=== PATIENT | female | born 1945 | race Two or more races ===

== ENCOUNTER 2017-10-12 04:05 | Inpatient (IN) | payer MEDICAID, MEDICARE ==
[~2017-10-12] VITALS: Ht 165.1 cm; Wt 77.6 kg
--- NOTE | 2017-10-12 04:13 | NUR ---
BIB RA C/C SOB PROGRESSIVELY GETTING WORSE OVER WEEK. PTAA/OX3. 2-3 WORD SENTENCES. LIPS CYANOTIC. ALBUTEROL GIVEN HAMMER OPERATOR. COMPLAINING OF SUBSTERNAL CHEST PAIN. 20G LAC IV HAMMER OPERATOR WITH NO SIGNS OF INFILTRATION. RA STATES 87% O2 SAT ON SCENE. AWAITING MD ORDERS. EVAL.
[2017-10-12] MEDS ORDERED: methylPREDNISolone SOD SUCC 125 MG/2ML VIAL ONE (04:22)
[2017-10-12] MEDS ORDERED: ALBUTEROL FS 2.5 MG/3 ML VIAL.NEB ONE (04:24)
[2017-10-12] MEDS ORDERED: IPRATROPIUM NEB FS 0.5 MG/2.5 ML AMPUL.NEB ONE (04:24)
[2017-10-12] MEDS ORDERED: methylPREDNISolone SOD SUCC 125 MG/2ML VIAL IV ONE (04:30)
[2017-10-12] MEDS ORDERED: ALBUTEROL FS 2.5 MG/3 ML VIAL.NEB CONTNEB ONE (04:30)
[2017-10-12] MEDS ORDERED: IPRATROPIUM NEB FS 0.5 MG/2.5 ML AMPUL.NEB NEB ONE (04:30)
--- NOTE | 2017-10-12 04:34 | NUR ---
LAB AND RT AT BEDSIDE
[2017-10-12 04:37] LABS: ABG BASE EXCESS -2.9 mmol/L; ABG OXYGEN SATURATION 96.3 % (92.0-98.5); ABG PCO2 41.8 mmHg (35.0-45.0); ABG PH 7.349 (7.350-7.450); ABG PO2 98.5 mmHg (75.0-100.0); AaDO2 167.6 mmHg; COHb 0.4 % (0.5-1.5); MetHb 0.4 % (0.0-1.5); O2Hb 95.5 % (94.0-97.0); SITE, ABG Right Radial; VENT MODE, BG 6L N/C
--- NOTE | 2017-10-12 04:48 | NUR ---
X RAY AT BEDSIDE
--- NOTE | 2017-10-12 04:49 | NUR ---
mohit obregon cellphone [phone]
[2017-10-12 04:53] LABS: BASOPHILS % (AUTO) 0.2 % (0.0-2.0); EOSINOPHILS % (AUTO) 2.5 % (0.0-6.0); HEMATOCRIT 30 % (33-45); HEMOGLOBIN 9.8 g/dL (11.5-14.8); LYMPHOCYTES % (AUTO) 30.7 % (20.0-44.0); MEAN CORPUSCULAR HEMOGLOBIN 28 PG (26.0-33.0); MEAN CORPUSCULAR HGB CONC 33 g/dl (31.0-36.0); MEAN CORPUSCULAR VOLUME 86 fL (82-100); MONOCYTES # (AUTO) 0.5 /CMM (0.1-1.30); MONOCYTES % (AUTO) 7.6 % (2.0-12.0); NEUTROPHILS # (AUTO) 3.9 /CMM (1.8-8.9); PLATELET COUNT (AUTO) 207 /CMM (150-450); WHITE BLOOD COUNT (AUTO) 6.7 K/uL (4.3-11.0)
[2017-10-12 05:10] LABS: CALCIUM, SERUM 8.4 mg/dL (8.5-10.1); CARBON DIOXIDE 26 mmol/L (21-32); CHLORIDE 108 mmol/L (98-107); CREATININE 1.1 mg/dL (0.6-1.3); GLUCOSE 112 mg/dL (74-106); POTASSIUM 3.8 mmol/L (3.5-5.1); SODIUM SERUM 143 mmol/L (136-145); UREA NITROGEN, BLOOD 23 mg/dL (7-18)
[2017-10-12 05:16] LABS: TROPONIN I < 0.017 ng/mL (0.00-0.056)
[2017-10-12 05:23] LABS: ALANINE AMINOTRANSFERASE 14 U/L (12-78); ALBUMIN 3.4 g/dL (3.4-5.0); ALKALINE PHOSPHATASE 75 U/L (46-116); ASPARTATE AMINOTRANSFERASE 14 U/L (15-37); B-TYPE NATRIURETIC PEPTIDE 4077 PG/ML (0-125); BILIRUBIN,DIRECT 0.1 mg/dL (0.0-0.2); BILIRUBIN,TOTAL 0.5 mg/dL (0.2-1.0)
[2017-10-12] MEDS ORDERED: NITROGLYCERIN PACKET 1 GM PACKET TD ONE (06:00)
[2017-10-12] MEDS ORDERED: ENOXAPARIN SODIUM 60 MG/0.6 ML DISP.SYRIN SQ ONE (06:00)
[2017-10-12] MEDS ORDERED: FUROSEMIDE 40 MG/4 ML VIAL IV ONE (06:00)
[2017-10-12] MEDS ORDERED: ENOXAPARIN SODIUM 80 MG/0.8 ML DISP.SYRIN SQ ONE (06:05)
[2017-10-12] MEDS ORDERED: FUROSEMIDE 40 MG/4 ML VIAL ONE (06:06)
[2017-10-12] MEDS ORDERED: NITROGLYCERIN PACKET 1 GM PACKET ONE (06:06)
--- NOTE | 2017-10-12 06:15 | NUR ---
Patient is resting comfortably in bed with eyes closed. Easily aroused. VSS.
--- NOTE | 2017-10-12 06:33 | NUR ---
PLACED PT ON 02 15LPM VIA NRB DUE TO O2 SATURATION AT 89%. PT IS NOW SATTING AT 96%. NOTIFIED
--- NOTE | 2017-10-12 07:12 | NUR ---
PAGED [facility] FOR ADMISSION, DR BOWER IS JAVA TECH.
--- NOTE | 2017-10-12 07:12 | NUR ---
Catrachito meraz in [facility] - 10/12/17 at 0727 by DUKE CASSIE [facility] FOR ADMISSION, DR BOWER IS ORTHOTIC TECHNICIAN.
--- NOTE | 2017-10-12 07:30 | NUR ---
CALLED [facility] FOR BED 3
--- NOTE | 2017-10-12 07:37 | NUR ---
ENDORSED TO ONCOMING SHIFT PATTI LALA. PT STABLE CONDITION. VSS. NAD.
--- NOTE | 2017-10-12 07:44 | NUR ---
Catrachito meraz in [facility] - 10/12/17 at 0801 by [facility] [address] BOOTH FOR ADMISSION
[2017-10-12] MEDS ORDERED: CLOP75TA15 PO (07:59)
[2017-10-12] MEDS ORDERED: AMIO200T4 PO (07:59)
[2017-10-12] MEDS ORDERED: GABA-534 PO (07:59)
[2017-10-12] MEDS ORDERED: TRAM50TA2 PO (07:59)
[2017-10-12] MEDS ORDERED: LEVO112T2 PO (07:59)
[2017-10-12] MEDS ORDERED: ICOS1CAP PO (07:59)
[2017-10-12] MEDS ORDERED: SERT25TA PO (07:59)
[2017-10-12] MEDS ORDERED: ZOLP10TA2 PO (07:59)
[2017-10-12] MEDS ORDERED: METO-356 PO (07:59)
[2017-10-12] MEDS ORDERED: [UNRECOGNIZED DRUG - CODE] PO (07:59)
[2017-10-12] MEDS ORDERED: ATOR20TA PO (07:59)
[2017-10-12] MEDS ORDERED: OMEP40CA37 PO (07:59)
[2017-10-12] MEDS ORDERED: VALS160T2 PO (07:59)
[2017-10-12 08:08] LABS: THYROID STIMULATING HORMONE 3.72 uIU/mL (0.358-3.74)
--- NOTE | 2017-10-12 08:08 | NUR ---
ROOM [employer]
--- NOTE | 2017-10-12 08:16 | NUR ---
TD/RN REPORT FROM ER RECEIVED REPORT FROM ER NURSE DAI FOR PT TO BE ADMITTED FOR RESPIRATORY FAILURE/CHF UNDER THE CARE OF DR. BOWER. AWAITING FOR PT'S ARRIVAL.
[2017-10-12] MEDS ORDERED: ASPIRIN 81 MG TAB.CHEW ONE (08:17)
--- NOTE | 2017-10-12 08:27 | NUR ---
REPORT GIVEN TO AMBROSE ARMSTRONG.
[2017-10-12] MEDS ORDERED: ASPIRIN 81 MG TAB.CHEW PO ONE (08:30)
[2017-10-12 08:55] LABS: ABG BASE EXCESS -2.2 mmol/L; ABG OXYGEN SATURATION 95.7 % (92.0-98.5); ABG PCO2 40.2 mmHg (35.0-45.0); ABG PH 7.373 (7.350-7.450); ABG PO2 89.6 mmHg (75.0-100.0); COHb 0.3 % (0.5-1.5); MetHb 0.4 % (0.0-1.5); SITE, ABG Right Radial; VENT MODE, BG SIMPLE MASK 60%
[2017-10-12] MEDS ORDERED: [UNRECOGNIZED DRUG - OTHER] PO SCH (09:00)
[2017-10-12] MEDS ORDERED: Medication Not On Formulary EA (Icosapent Ethyl (Vascepa) 1 GM) PO SCH (09:00)
[2017-10-12] MEDS ORDERED: TRAMADOL HCL 50 MG TABLET PO PRN (09:00)
[2017-10-12 09:30] VITALS: BP 124/69
--- NOTE | 2017-10-12 10:00 | NUR ---
TD/PROFESSIONAL SERVICES CONSULTANT - TD 102 PT ARRIVED TO TD UNIT VIA GURNEY ACCOMPANIED BY ER NURSE DAI AND DOUGH SHEETER. PT TRANSFERRED TO HOSPITAL BED. ADMITTED FOR ACUTE CHF, UNDER THE CARE OF DR. BOWER. PT A/O X 4, DENIES HAVING SHORTNESS OF BREATH AT THIS TIME, PLACED 10L O2 VIA SIMPLE MASK, SATURATING @ 100%, LUNG SOUNDS DIMINISHED THROUGHOUT, RESPIRATIONS EVEN AND UNLABORED. TELE BOX PLACED, SINUS RHYTHM WITH FIRST DEGREE AV BLOCK, HR 82. IV SITE FLUSHED PATENT, WITH NO S/S OF INFECTION. TODD CATHETER INTACT (INSERTED IN ER) WITH CLEAR YELLOW URINE OUTPUT. NO EDEMA NOTED. PT ORIENTED TO HER SURROUNDINGS, COMFORTABLE AT THIS TIME, AWAITING FOR ADMITTING ORDERS. CL WITHIN REACHED AND SAFETY MAINTAINED.
[2017-10-12] MEDS ORDERED: MAGNESIUM HYDROXIDE 30 ML UDC PO PRN (11:30)
[2017-10-12] MEDS ORDERED: Z GUARD REMEDY 2 OZ OINT TP PRN (11:30)
[2017-10-12] MEDS ORDERED: ONDANSETRON HCL/PF 4 MG/2 ML VIAL IVP PRN (11:30)
[2017-10-12] MEDS ORDERED: MAG HYDROX/AL HYDROX/SIMETH 30 ML UDC PO PRN (11:30)
[2017-10-12] MEDS ORDERED: HYDROCODONE/APAP 5/325MG 1 EACH TABLET PO PRN (11:30)
[2017-10-12 11:42] VITALS: BP 124/69
[2017-10-12] MEDS: CLOPIDOGREL BISULFATE 75 MG TABLET PO SCH (11:45)
[2017-10-12] MEDS: GABAPENTIN 300 MG CAPSULE PO SCH ×2 (11:46→16:28)
[2017-10-12] MEDS: AMIODARONE HCL 200 MG TABLET PO SCH (11:48)
[2017-10-12] MEDS: FUROSEMIDE 40 MG/4 ML VIAL IV SCH ×2 (11:49→16:28)
[2017-10-12] MEDS: METOPROLOL SUCCINATE 25 MG TAB.SR.24H PO SCH (11:49)
[2017-10-12] MEDS: VALSARTAN 80 MG TABLET PO SCH (11:49)
[2017-10-12] MEDS: ENOXAPARIN SODIUM 40 MG/0.4 ML DISP.SYRIN SQ SCH (11:50)
[2017-10-12 12:00] VITALS: BP_SYST 125; BP_SYST 130; BP_SYST 146; BP_DIAS 55; BP_DIAS 68; BP_DIAS 81
[2017-10-12 13:31] LABS: CHOLESTEROL 138 mg/dL (<200); FERRITIN 55 ng/mL (8-388); HDL CHOLESTEROL 56 mg/dL (40-60); LDL 71 mg/dL (0-99); TRIGLYCERIDES 94 mg/dL (30-150)
--- NOTE | 2017-10-12 13:41 | NUR ---
TD/RN O2 SUPPLEMENT O2 SUPPLEMENT CHANGED TO 4L HUMIDIFIED O2 VIA N/C. NO ACUTE RESPIRATORY DISTRESS. MONITORING CONTINUED.
[2017-10-12] MEDS ORDERED: IV NS 0.9% 250 ML IV PRN (15:30)
[2017-10-12 16:00] VITALS: BP 125/68
[2017-10-12] MEDS: IPRATROPIUM NEB FS 0.5 MG/2.5 ML AMPUL.NEB NEB SCH ×3 (16:05→23:19)
[2017-10-12] MEDS: ALBUTEROL HALF STRENGTH 1.25 MG/3 ML VIAL.NEB NEB SCH ×3 (16:05→23:19)
[2017-10-12] MEDS: methylPREDNISolone SOD SUCC 125 MG/2ML VIAL IV SCH ×2 (16:28→20:06)
[2017-10-12] MEDS: GUAIFENESIN LA 600 MG TABLET.SA PO SCH ×2 (16:28→20:06)
[2017-10-12] MEDS: ACETAMINOPHEN 325 MG TABLET PO PRN (16:29)
[2017-10-12] MEDS: LEVOFLOXACIN 500 MG /D5W 100ML 100 ML IV SCH (16:47)
--- NOTE | 2017-10-12 17:30 | NUR ---
TD/RN AFTERNOON ROUNDS PM CARE PROVIDED, NO ACUTE RESPIRATORY DISTRESS NOTED, PT VERBALIZED SHE IS FEELING BETTER THAN SHE WAS THIS MORNING, PT MADE AWARE OF PLAN OF CARE AND ACKNOWLEDGED UNDERSTANDING. MONITORING CONTINUED.
[2017-10-12 18:51] LABS: TROPONIN I < 0.017 ng/mL (0.00-0.056)
[2017-10-12 19:16] LABS: IRON, SERUM 30 ug/dl (50-175); TOTAL IRON BINDING CAPACITY 276 ug/dl (250-450)
--- NOTE | 2017-10-12 19:16 | NUR ---
TD/RN AM SHIFT END NOTES NO ACUTE RESPIRATORY DISTRESS NOTED SINCE PT WAS ADMITTED TO THE TD UNIT. ALL NEEDS MET. ON 4L HUMIDIFIED O2 VIA N/C, SATURATING WELL, IV SITE INTACT ON TKO AND TODD CATHETER INTACT. CALLED [facility] EXCHANGE TO NOTIFY DR. BOWER OF EKG RESULTS, PER LOCKSTITCH BINDER MD WILL CALL BACK. PT ENDORSED TO PM NURSE TO CONTINUE CARE, ALSO ENDORSED TO RELAY RESULTS OF EKG ONCE DR. BOWER DO RETURN CALL. CL WITHIN REACHED AND SAFETY MAINTAINED.
[2017-10-12 20:00] VITALS: BP 141/67
[2017-10-12] MEDS: ATORVASTATIN 10 MG TABLET PO SCH (21:18)
[2017-10-13] VITALS: BP 138/51
[2017-10-13] MEDS: ALBUTEROL HALF STRENGTH 1.25 MG/3 ML VIAL.NEB NEB SCH ×6 (03:31→23:12)
[2017-10-13] MEDS: IPRATROPIUM NEB FS 0.5 MG/2.5 ML AMPUL.NEB NEB SCH ×6 (03:31→23:12)
[2017-10-13 04:00] VITALS: BP 149/67
[2017-10-13] MEDS: methylPREDNISolone SOD SUCC 125 MG/2ML VIAL IV SCH ×3 (04:48→21:02)
[2017-10-13 06:41] LABS: ALANINE AMINOTRANSFERASE 16 U/L (12-78); ALBUMIN 3.1 g/dL (3.4-5.0); ALKALINE PHOSPHATASE 69 U/L (46-116); ASPARTATE AMINOTRANSFERASE 13 U/L (15-37); BILIRUBIN,TOTAL 0.3 mg/dL (0.2-1.0); CALCIUM, SERUM 8.6 mg/dL (8.5-10.1); CARBON DIOXIDE 28 mmol/L (21-32); CHLORIDE 104 mmol/L (98-107); CREATININE 1.5 mg/dL (0.6-1.3); GLUCOSE 146 mg/dL (74-106); PHOSPHORUS 3.5 mg/dL (2.5-4.9); SODIUM SERUM 141 mmol/L (136-145); TOTAL PROTEIN, SERUM 6.7 g/dL (6.4-8.2); UREA NITROGEN, BLOOD 37 mg/dL (7-18)
[2017-10-13 06:45] LABS: CHOLESTEROL 143 mg/dL (<200); HDL CHOLESTEROL 65 mg/dL (40-60); LDL 71 mg/dL (0-99); TRIGLYCERIDES 44 mg/dL (30-150)
[2017-10-13 06:59] LABS: EOSINOPHILS % (AUTO) 0.1 % (0.0-6.0); HEMATOCRIT 29 % (33-45); HEMOGLOBIN 9.6 g/dL (11.5-14.8); LYMPHOCYTES % (AUTO) 7.8 % (20.0-44.0); MEAN CORPUSCULAR HEMOGLOBIN 28 PG (26.0-33.0); MEAN CORPUSCULAR HGB CONC 33 g/dl (31.0-36.0); MEAN CORPUSCULAR VOLUME 86 fL (82-100); MONOCYTES # (AUTO) 0.2 /CMM (0.1-1.30); MONOCYTES % (AUTO) 1.2 % (2.0-12.0); NEUTROPHILS # (AUTO) 11.5 /CMM (1.8-8.9); NEUTROPHILS % (AUTO) 90.9 % (43.0-81.0); PLATELET COUNT (AUTO) 212 /CMM (150-450); RDW COEFFICIENT OF VARIATION 16.1 (11.5-15.0); RED BLOOD CELL COUNT(AUTO) 3.41 MIL/uL (4.0-5.2); WHITE BLOOD COUNT (AUTO) 12.6 K/uL (4.3-11.0)
[2017-10-13 07:09] LABS: MAGNESIUM 1.2 mg/dL (1.8-2.4)
[2017-10-13 08:00] VITALS: BP 135/72
--- NOTE | 2017-10-13 08:00 | NUR ---
T/D NURSE NOTES RECEIVED SITTING IN BED, A/O X 4, DENIES ANY PAIN AT THIS TIME, DENIES SHORTNESS OF BREATH AT THIS TIME, ON NASAL CANNULA ON 4LPM, SATURATING @ 99%, LUNG SOUNDS DIMINISHED ALL OVER, RESPIRATIONS UNLABORED, IV SITE ON THE RIGHT FOREARM, INTACT, NO SIGN OF INFECTION NOTED, FLUSHED PATENT, WITH ONGOING IVF ON TKO, TODD CATHETER INTACT DRAINING WITH CLEAR YELLOW URINE. NO EDEMA NOTED. PT ORIENTED TO HER SURROUNDINGS, COMFORTABLE AT THIS TIME, CALL LIGHT WITHIN REACHED AND SAFETY MAINTAINED.
[2017-10-13] MEDS: ENOXAPARIN SODIUM 40 MG/0.4 ML DISP.SYRIN SQ SCH (08:35)
[2017-10-13] MEDS: PANTOPRAZOLE 40 MG TABLET.DR PO SCH (08:36)
[2017-10-13] MEDS: CLOPIDOGREL BISULFATE 75 MG TABLET PO SCH (08:36)
[2017-10-13] MEDS: FUROSEMIDE 40 MG/4 ML VIAL IV SCH (08:36)
[2017-10-13] MEDS: GUAIFENESIN LA 600 MG TABLET.SA PO SCH ×2 (08:36→21:02)
[2017-10-13] MEDS: AMIODARONE HCL 200 MG TABLET PO SCH (08:37)
[2017-10-13] MEDS: LEVOTHYROXINE SODIUM 112 MCG TABLET PO SCH (08:38)
[2017-10-13] MEDS: METOPROLOL SUCCINATE 25 MG TAB.SR.24H PO SCH (08:38)
[2017-10-13] MEDS: GABAPENTIN 300 MG CAPSULE PO SCH ×2 (08:38→18:17)
[2017-10-13] MEDS: VALSARTAN 80 MG TABLET PO SCH (08:38)
--- NOTE | 2017-10-13 09:00 | NUR ---
TD/RN ROUNDS - DR. BRODY UPDATED PT'S CONDITION. PT SEEN & EXAMINED BY DR. BRODY. WITH VERBAL ORDER RECEIVED TO REMOVE TODD CATHETER. ORDER NOTED AND CARRIED.
[2017-10-13] MEDS ORDERED: Magnesium 1GM/D5W 100ML PREMIX PIGGYBACK IV ONE (11:00)
[2017-10-13] MEDS: Magnesium 1GM/D5W 100ML PREMIX 100 ML IV SCH ×4 (11:22→22:51)
[2017-10-13] MEDS: ACETAMINOPHEN 325 MG TABLET PO PRN ×2 (12:05→14:40)
[2017-10-13] MEDS: SOD FERRIC GLUC 125 MG in IV NS 0.9% 100 ML IV SCH (13:02)
--- NOTE | 2017-10-13 14:40 | NUR ---
T/D NURSE NOTES NOON ROUNDS DONE, NO SIGN OF RESPIRATORY DISTRESS, PATIENT COMPLAINS OF HEADACHE; SCALE OF 6/10. TYLENOL 650MG PRN FOR PAIN GIVEN. CALL LIGHT WITHIN REACHED. SAFETY MAINTAINED. WILL CONTINUE TO MONITOR
--- NOTE | 2017-10-13 15:40 | NUR ---
T/D NURSE NOTES WENT TO ROOM TO REASSESS PATIENT'S LEVEL OF PAIN, PATIENT IS COMFORTABLY SITTING AT BED, NO COMPLAINS OF PAIN AT THIS TIME.
[2017-10-13 16:00] VITALS: BP 123/48
--- NOTE | 2017-10-13 17:04 | NUR ---
Spoke with patient, she is alert and pleasant. Her primary language is Estonian but she speaks some Macedonian.She lives alone on the first floor apartment. Prior to admission, she was walking with a walker and she own a wheelchair for out to community mobility.She has an IHSS caregiver Yuliya that comes during the day for 4-5hrs > total 112hrs/month IHSS. Stated she was at a SNF in the past and might consider going if needed but still she prefer to return home. Spoke with son Robi [phone], he is out of town and will not be available to provide ride when discharge. Addendum: 10/13/17 at 1705 by MJ FLOWERS RN Amended: Links added.
[2017-10-13] MEDS: LEVOFLOXACIN 500 MG /D5W 100ML 100 ML IV SCH (18:17)
--- NOTE | 2017-10-13 19:23 | NUR ---
T/D NOTES ENDORSED PATIENT TO INCOMING NIGHT NURSE, ON COMFORTABLE POSITION, NASAL CANNULA IN PLACE AT 4LPM, NO SHORTNESS OF BREATH NOTED, SATURATING AT 97 %, HEART RATE AT 91 BPM, NO COMPLAINS OF PAIN. CALL LIGHT WITHIN REACH. MAINTAINED SAFETY. SIGNIFICANT OTHER AT BED SIDE.
[2017-10-13 20:00] VITALS: BP 131/63
[2017-10-13] MEDS: ATORVASTATIN 10 MG TABLET PO SCH (21:02)
[2017-10-14] MEDS: ZOLPIDEM TARTRATE 5 MG TABLET PO PRN (00:33)
[2017-10-14] MEDS: ALBUTEROL HALF STRENGTH 1.25 MG/3 ML VIAL.NEB NEB SCH ×6 (03:02→23:49)
[2017-10-14] MEDS: IPRATROPIUM NEB FS 0.5 MG/2.5 ML AMPUL.NEB NEB SCH ×6 (03:02→23:49)
[2017-10-14 04:00] VITALS: BP 157/68
[2017-10-14] MEDS: methylPREDNISolone SOD SUCC 125 MG/2ML VIAL IV SCH (05:55)
[2017-10-14 06:50] LABS: HEMATOCRIT 31 % (33-45); LYMPHOCYTES # (AUTO) 1.1 /CMM (0.8-4.8); LYMPHOCYTES % (AUTO) 5.6 % (20.0-44.0); MEAN CORPUSCULAR HEMOGLOBIN 28 PG (26.0-33.0); MEAN CORPUSCULAR HGB CONC 32 g/dl (31.0-36.0); MEAN CORPUSCULAR VOLUME 86 fL (82-100); MONOCYTES # (AUTO) 0.3 /CMM (0.1-1.30); MONOCYTES % (AUTO) 1.7 % (2.0-12.0); NEUTROPHILS # (AUTO) 17.8 /CMM (1.8-8.9); NEUTROPHILS % (AUTO) 92.7 % (43.0-81.0); PLATELET COUNT (AUTO) 252 /CMM (150-450); RDW COEFFICIENT OF VARIATION 16.3 (11.5-15.0); RED BLOOD CELL COUNT(AUTO) 3.57 MIL/uL (4.0-5.2); WHITE BLOOD COUNT (AUTO) 19.2 K/uL (4.3-11.0)
[2017-10-14 07:04] LABS: CARBON DIOXIDE 28 mmol/L (21-32); CHLORIDE 102 mmol/L (98-107); CREATININE 1.4 mg/dL (0.6-1.3); GLUCOSE 135 mg/dL (74-106); MAGNESIUM 3.2 mg/dL (1.8-2.4); PHOSPHORUS 4.8 mg/dL (2.5-4.9); POTASSIUM 4.3 mmol/L (3.5-5.1); SODIUM SERUM 137 mmol/L (136-145); UREA NITROGEN, BLOOD 50 mg/dL (7-18)
--- NOTE | 2017-10-14 07:44 | NUR ---
MS RN OPENING NOTE RECEIVED PATIENT IN BED, ALERT ORIENTED X3. ON 4L O2 VIA NC TOLERATING WELL, O2 SAT AT 95% ON PULSOX. REPARATIONS EVEN AND UNLABORED. CURRENTLY RECEIVING BREATHING TREATMENT WITH RT FOR SOB. PATIENT IS ABLE TO COMMUNICATE NEEDS. IN NO APPARENT DISTRESS OR DISCOMFORT AT THIS TIME. PATIENT WITH L HAND IV ACCESS 22G, PATENT AND INTACT. INCONTINENT WITH DIAPER. KEPT CLEAN AND COMFORTABLE. ALL SAFETY MEASURES IN PLACE, BED IN LOW LOCKED POSITION, SIDE RAILS UP X2, CALL LIGHT WITHIN EASY REACH. WILL CONTINUE TO MONITOR.
[2017-10-14 08:00] VITALS: BP_SYST 124; BP_SYST 127; BP_DIAS 55; BP_DIAS 61
[2017-10-14] MEDS: PANTOPRAZOLE 40 MG TABLET.DR PO SCH (08:29)
[2017-10-14] MEDS: LEVOTHYROXINE SODIUM 112 MCG TABLET PO SCH (08:29)
[2017-10-14] MEDS: AMIODARONE HCL 200 MG TABLET PO SCH (08:36)
[2017-10-14] MEDS: METOPROLOL SUCCINATE 25 MG TAB.SR.24H PO SCH (08:37)
[2017-10-14] MEDS: CLOPIDOGREL BISULFATE 75 MG TABLET PO SCH (08:37)
[2017-10-14] MEDS: GABAPENTIN 300 MG CAPSULE PO SCH ×2 (08:37→16:20)
[2017-10-14] MEDS: GUAIFENESIN LA 600 MG TABLET.SA PO SCH ×2 (08:37→21:08)
[2017-10-14] MEDS: VALSARTAN 80 MG TABLET PO SCH (08:39)
[2017-10-14] MEDS: ENOXAPARIN SODIUM 40 MG/0.4 ML DISP.SYRIN SQ SCH (08:43)
[2017-10-14] MEDS: SOD FERRIC GLUC 125 MG in IV NS 0.9% 100 ML IV SCH (13:53)
--- NOTE | 2017-10-14 14:00 | NUR ---
DR. ABERNATHY AT BEDSIDE. PLAN TO DO EGD TOMORROW. EXPLAINED THE PROCEDURE TO THE PATIENT, ALL RISKS AND BENEFITS DISCUSSED BY THE DOCTOR, VERBAL CONSENT AND WRITTEN CONSENT OBTAINED. WILL CARRY OUT FURTHER ORDERS.
[2017-10-14 16:00] VITALS: BP 124/61
[2017-10-14] MEDS: LEVOFLOXACIN 500 MG /D5W 100ML 100 ML IV SCH (16:20)
--- NOTE | 2017-10-14 18:17 | NUR ---
MS RN CLOSING NOTE PATIENT IN BED, ALERT ORIENTED X3. ON 2L O2 VIA NC TOLERATING WELL, O2 SAT AT 95% ON PULSOX. REPARATIONS EVEN AND UNLABORED. IN NO APPARENT DISTRESS OR DISCOMFORT AT THIS TIME. DENIES PAIN AND SOB. PATIENT IS ABLE TO COMMUNICATE NEEDS. PATIENT WITH L HAND IV ACCESS 22G, SL, PATENT AND INTACT. INCONTINENT WITH DIAPER. KEPT CLEAN AND COMFORTABLE. ALL MEDICATIONS GIVEN AND ORDERS CARRIED OUT, ALL NEEDS ATTENDED. SAFETY MEASURES IN PLACE, BED IN LOW LOCKED POSITION, SIDE RAILS UP X3 PER PATIENT'S REQUEST, CALL LIGHT WITHIN EASY REACH. WILL ENDORSE TO PM NURSE FOR PATSY.
--- NOTE | 2017-10-14 19:30 | NUR ---
MS1 RN NOTES RECEIVED RESTING COMFORTABLY ON BED A/O X4,BREATHING NON LABORED,O2 AT 2L/NC IN USED,O2 SAT 92%.SALINE LOCK LEFT HAND INTACT AND PATENT.DVT PUMP ON STAND BY.ON ISOFLEX BED FOR SKIN MANAGEMENT.DENIES PAIN AT THE MOMENT.CALL LIGHT IN REACH,NEEDS ANTICIPATED.
--- NOTE | 2017-10-14 19:45 | NUR ---
MS1 RN NOTES RT AT BEDSIDE THIS TIME ADMENISTERING BREATHING TREATMENT SCHEDULED.
[2017-10-14 19:57] VITALS: BP 131/50
--- NOTE | 2017-10-14 21:00 | NUR ---
MS1 RN NOTES DUE PO MEDS GIVEN ,TAKEN WELL
[2017-10-14] MEDS: ATORVASTATIN 10 MG TABLET PO SCH (21:08)
--- NOTE | 2017-10-14 23:06 | NUR ---
MS1 RN NOTES INSTRUCTED NPO POST MN FOR EGD IN THE MORNING.CONSENT SIGNED ON CHART.SLEEPING AT THIS TIME.REPORT GIVEN TO GRUPO ARMSTRONG FOR PATSY.
[2017-10-15] MEDS: IPRATROPIUM NEB FS 0.5 MG/2.5 ML AMPUL.NEB NEB SCH ×6 (02:51→23:26)
[2017-10-15] MEDS: ALBUTEROL HALF STRENGTH 1.25 MG/3 ML VIAL.NEB NEB SCH ×6 (02:51→23:26)
[2017-10-15 04:00] VITALS: BP 132/54
--- NOTE | 2017-10-15 07:15 | NUR ---
MS/RN NOTES RECEIVED PT IN BED, A/OX4, ON 3LPM O2 VIA NC, TOLERATING WELL, NO SOB NOTED. NO C/O PAIN AT THIS TIME. LHAND G22 HEPLOCK INTACT AND PATENT. NO SIGNS OF INFECTION NOTED. HOB ELEVATED. SAFETY MEASURES IN PLACED. PT IS ON NPO, FOR EGD TODAY. CALL LIGHT WITHIN REACH. WILL CONT TO MONITOR
[2017-10-15] MEDS: LEVOTHYROXINE SODIUM 112 MCG TABLET PO SCH (07:55)
[2017-10-15] MEDS: PANTOPRAZOLE 40 MG TABLET.DR PO SCH (07:55)
[2017-10-15 08:00] VITALS: BP 139/62
[2017-10-15] MEDS: GUAIFENESIN LA 600 MG TABLET.SA PO SCH ×2 (08:43→21:16)
[2017-10-15] MEDS: AMIODARONE HCL 200 MG TABLET PO SCH (08:44)
[2017-10-15] MEDS: VALSARTAN 80 MG TABLET PO SCH (08:44)
[2017-10-15] MEDS: GABAPENTIN 300 MG CAPSULE PO SCH ×2 (08:44→16:16)
[2017-10-15] MEDS: METOPROLOL SUCCINATE 25 MG TAB.SR.24H PO SCH (08:44)
[2017-10-15] MEDS: ENOXAPARIN SODIUM 40 MG/0.4 ML DISP.SYRIN SQ SCH (08:45)
[2017-10-15] MEDS: CLOPIDOGREL BISULFATE 75 MG TABLET PO SCH (08:46)
[2017-10-15] MEDS ORDERED: methylPREDNISolone SOD SUCC 125 MG/2ML VIAL IV SCH (09:00)
[2017-10-15] MEDS: ACETAMINOPHEN 325 MG TABLET PO PRN (10:56)
--- NOTE | 2017-10-15 14:20 | NUR ---
RN NOTES PT WAS P/U BY OR NURSE FOR EGD IN STABLE CONDITION
[2017-10-15 15:15] LABS: OCCULT BLOOD STOOL NEGATIVE (NEGATIVE)
--- NOTE | 2017-10-15 15:25 | NUR ---
RN NOTES PT CAME BACK FROM FROM EGD PROCEDURE IN STABLE CONDITION. VS FOLLOWS: BP:136/80; P:57; R:20; SPO2:96%; TEMPT: 98
[2017-10-15 16:00] VITALS: BP 136/80
[2017-10-15] MEDS: LEVOFLOXACIN 500 MG /D5W 100ML 100 ML IV SCH (16:17)
[2017-10-15] MEDS: SOD FERRIC GLUC 125 MG in IV NS 0.9% 100 ML IV SCH (17:54)
--- NOTE | 2017-10-15 19:15 | NUR ---
MS/RN CLOSING NOTES PT IN STABLE CONDITION. NO ACUTE DISTRESS NOTED THROUGHOUT SHIFT. SAFETY MEASURES OBSERVED AT ALL TIMES. ALL NEEDS ANTICIPATED. ENDORSED TO PM NURSE FOR PATSY
--- NOTE | 2017-10-15 19:46 | NUR ---
RN OPENING NOTES RECEIVED REPORT FROM ERNESTO ARMSTRONG. PATIENT A/A/O X4, ABLE TO MAKE NEEDS KNOWN. BREATHING EVEN & UNLABORED & TOLERATING O2 @ 2LPM. PULSES PRESENT & BOUNDING. LEFT WRIST IV #22 INTACT & PATENT W/ DRESSING CDI, SALINE LOCKED. DENIES ANY PAIN OR DISCOMFORT @ THIS TIME. SAFETY MEASURES MAINTAINED W/ BED ALARM ON & CALL LIGHT WITHIN REACH. INSTRUCTED TO CALL FOR ASSISTANCE. WILL CONTINUE TO MONITOR.
[2017-10-15 20:00] VITALS: BP 137/69
[2017-10-15] MEDS: ATORVASTATIN 10 MG TABLET PO SCH (21:16)
[2017-10-16] MEDS: IPRATROPIUM NEB FS 0.5 MG/2.5 ML AMPUL.NEB NEB SCH ×6 (03:30→23:29)
[2017-10-16] MEDS: ALBUTEROL HALF STRENGTH 1.25 MG/3 ML VIAL.NEB NEB SCH ×6 (03:30→23:30)
[2017-10-16 04:00] VITALS: BP_SYST 137; BP_DIAS 69; BP_DIAS 89
--- NOTE | 2017-10-16 07:20 | NUR ---
RN OPENING NOTES RECEIVED REPORT FROM PM RN. PATIENT A/A/O X4, ABLE TO MAKE NEEDS KNOWN. BREATHING EVEN & UNLABORED & TOLERATING O2 @ 2LPM. LEFT WRIST IV #22 INTACT & PATENT W/ DRESSING CDI, SALINE LOCKED. DENIES ANY PAIN OR DISCOMFORT @ THIS TIME. SAFETY MEASURES MAINTAINED W/ BED ALARM ON & CALL LIGHT WITHIN REACH. INSTRUCTED TO CALL FOR ASSISTANCE. WILL CONTINUE TO MONITOR.
[2017-10-16] MEDS: PANTOPRAZOLE 40 MG TABLET.DR PO SCH (07:51)
[2017-10-16] MEDS: LEVOTHYROXINE SODIUM 112 MCG TABLET PO SCH (07:51)
[2017-10-16 08:00] VITALS: BP 145/65
[2017-10-16] MEDS: METOPROLOL SUCCINATE 25 MG TAB.SR.24H PO SCH (09:00)
[2017-10-16] MEDS: AMIODARONE HCL 200 MG TABLET PO SCH (09:00)
[2017-10-16] MEDS: VALSARTAN 80 MG TABLET PO SCH (09:04)
[2017-10-16] MEDS: GUAIFENESIN LA 600 MG TABLET.SA PO SCH ×2 (09:04→21:02)
[2017-10-16] MEDS: GABAPENTIN 300 MG CAPSULE PO SCH ×2 (09:04→17:13)
[2017-10-16] MEDS: CLOPIDOGREL BISULFATE 75 MG TABLET PO SCH (09:05)
[2017-10-16] MEDS: ENOXAPARIN SODIUM 40 MG/0.4 ML DISP.SYRIN SQ SCH (09:13)
--- NOTE | 2017-10-16 09:30 | NUR ---
RN NOTES AMIODARONE AND METOPROLOL NOT ADMINISTERED BECAUSE OF HR OF 56.WILL CONTINUE TO MONITOR.
--- NOTE | 2017-10-16 10:00 | NUR ---
RN NOTES SEEN BY MADE AWARE ABOUT LABS NOT DONE FOR LAST TWO DAYS.GOT NEW ORDER FOR LABS TODAY.ASKED TO FOLLOW UP WITH GI FOR COLONOSCOPY.
[2017-10-16 10:20] LABS: HEMATOCRIT 32 % (33-45); HEMOGLOBIN 10.1 g/dL (11.5-14.8); LYMPHOCYTES # (AUTO) 1.1 /CMM (0.8-4.8); LYMPHOCYTES % (AUTO) 8.9 % (20.0-44.0); MEAN CORPUSCULAR HEMOGLOBIN 27 PG (26.0-33.0); MEAN CORPUSCULAR HGB CONC 32 g/dl (31.0-36.0); MEAN CORPUSCULAR VOLUME 87 fL (82-100); MONOCYTES # (AUTO) 0.7 /CMM (0.1-1.30); MONOCYTES % (AUTO) 5.4 % (2.0-12.0); NEUTROPHILS # (AUTO) 10.7 /CMM (1.8-8.9); NEUTROPHILS % (AUTO) 85.7 % (43.0-81.0); PLATELET COUNT (AUTO) 267 /CMM (150-450); RDW COEFFICIENT OF VARIATION 16.7 (11.5-15.0); RED BLOOD CELL COUNT(AUTO) 3.68 MIL/uL (4.0-5.2); WHITE BLOOD COUNT (AUTO) 12.4 K/uL (4.3-11.0)
[2017-10-16 10:35] LABS: CALCIUM, SERUM 8.2 mg/dL (8.5-10.1); CARBON DIOXIDE 26 mmol/L (21-32); CHLORIDE 105 mmol/L (98-107); CREATININE 1.2 mg/dL (0.6-1.3); GLUCOSE 161 mg/dL (74-106); MAGNESIUM 2.1 mg/dL (1.8-2.4); PHOSPHORUS 3.3 mg/dL (2.5-4.9); POTASSIUM 4.5 mmol/L (3.5-5.1); SODIUM SERUM 140 mmol/L (136-145); UREA NITROGEN, BLOOD 66 mg/dL (7-18)
[2017-10-16 10:38] LABS: CHOLESTEROL 160 mg/dL (<200); HDL CHOLESTEROL 61 mg/dL (40-60); LDL 75 mg/dL (0-99); TRIGLYCERIDES 100 mg/dL (30-150)
--- NOTE | 2017-10-16 13:15 | NUR ---
RN NOTES SEEN BY FROM GI.PATIENT AGREED TO DO COLONOSCOPY. PER GI OK TO D/C AND CAN DO COLONOSCOPY OUTPATIENT,BUT PATIENT PREFERS TO DO IT WHILE SHE IS HERE AND DISCHARGE LATER. MADE AWARE.HE ASKED TO DO IT HERE.HE ALSO MADE AWARE ABOUT HER LABS ORDERED TODAY.HE SAID HE WILL FOLLOW UP.DR ART MADE AWARE PLAN FROM .PLANNING TO DO COLONOSCOPY ON WEDNESDAY.PATIENT MADE AWARE.
[2017-10-16] MEDS: SOD FERRIC GLUC 125 MG in IV NS 0.9% 100 ML IV SCH (14:41)
[2017-10-16 16:00] VITALS: BP 114/51
[2017-10-16] MEDS: ACETAMINOPHEN 325 MG TABLET PO PRN (17:13)
[2017-10-16] MEDS: LEVOFLOXACIN 500 MG /D5W 100ML 100 ML IV SCH (17:13)
--- NOTE | 2017-10-16 18:57 | NUR ---
RN SHIFT END NOTES PATIENT A/A/O X4, ABLE TO MAKE NEEDS KNOWN.FAMILY AT BEDSIDE. BREATHING EVEN & UNLABORED & TOLERATING O2 @ 2LPM. LEFT WRIST IV #22 INTACT & PATENT W/ DRESSING CDI, SALINE LOCKED. DENIES ANY PAIN OR DISCOMFORT @ THIS TIME. SAFETY MEASURES MAINTAINED W/ BED ALARM ON & CALL LIGHT WITHIN REACH. INSTRUCTED TO CALL FOR ASSISTANCE.PLANNING FOR COLONOSCOPY ON WEDNESDAY. WILL ENDORSE TO PM NURSE FOR PATSY.
--- NOTE | 2017-10-16 19:00 | NUR ---
MS RN OPENING NOTE RECEIVE PATIENT AWAKE IN BED, A/O X3, NO SOB OR DISTRESS NOTED, CALL LIGHT WITHIN REACH. SAFETY MEASURES IMPLEMENTED. WILL CONTINUE TO MONITOR THROUGHOUT SHIFT
[2017-10-16 20:00] VITALS: BP 94/54
[2017-10-16] MEDS: ATORVASTATIN 10 MG TABLET PO SCH (21:02)
[2017-10-16] MEDS: ZOLPIDEM TARTRATE 5 MG TABLET PO PRN (21:03)
[2017-10-17] MEDS: IPRATROPIUM NEB FS 0.5 MG/2.5 ML AMPUL.NEB NEB SCH ×6 (03:19→22:50)
[2017-10-17] MEDS: ALBUTEROL HALF STRENGTH 1.25 MG/3 ML VIAL.NEB NEB SCH ×6 (03:19→22:50)
[2017-10-17 04:00] VITALS: BP 120/46
--- NOTE | 2017-10-17 06:13 | NUR ---
MS RN CLOSING NOTES PT COMFORTABLY ASLEEP AND EASILY AWAKEN, STABLE, 2LPM VIA NC O2 SAT AT 98%, NOT IN DISTRESS. RESPIRATION EVEN AND UNLABORED. KEPT CLEAN AND DRY AND COMFORTABLE, ALL NURSING CARE RENDERED. NEEDS ATTENDED AND ANTICIPATED, NO FACIAL GRIMACING NOTED. NO COMPLAIN OF PAIN. GOOD SKIN CARE PROVIDED. ON LOW BED AT ALL TIMES TO ENSURE SAFETY. SAFE HAZARD FREE ENVIRONMENT PROVIDED. CALL LIGHT WITHIN EASY TO REACH. WILL ENDORSE NEXT SHIFT CONTINUITY OF CARE.
[2017-10-17] MEDS: LEVOTHYROXINE SODIUM 112 MCG TABLET PO SCH (07:39)
[2017-10-17] MEDS: PANTOPRAZOLE 40 MG TABLET.DR PO SCH (07:39)
--- NOTE | 2017-10-17 07:45 | NUR ---
RN NOTE RECEIVED PATIENT AWAKE IN BED. ALERT AND ORIENTED X4, SHE IS ABLE TO MAKE NEEDS KNOWN AND VERBALIZE NEEDS. BREATHING EVEN AND UNLABORED WITH NO DISTRESS NOTED. IV SITE INTACT AND PATENT. ALL SAFETY MEASURES DONE. BED LOW AND LOCKED POSITION. PLACED CALL LIGHT WITHIN REACH. WILL CONTINUE TO MONITOR.
[2017-10-17 08:00] VITALS: BP_SYST 125; BP_SYST 99; BP_DIAS 38; BP_DIAS 60
[2017-10-17] MEDS: GUAIFENESIN LA 600 MG TABLET.SA PO SCH ×2 (08:32→22:01)
[2017-10-17] MEDS: CLOPIDOGREL BISULFATE 75 MG TABLET PO SCH (08:32)
[2017-10-17] MEDS: GABAPENTIN 300 MG CAPSULE PO SCH ×2 (08:32→16:23)
[2017-10-17] MEDS: ENOXAPARIN SODIUM 40 MG/0.4 ML DISP.SYRIN SQ SCH (08:33)
[2017-10-17] MEDS: AMIODARONE HCL 200 MG TABLET PO SCH (08:43)
[2017-10-17] MEDS: VALSARTAN 80 MG TABLET PO SCH (08:43)
[2017-10-17] MEDS: METOPROLOL SUCCINATE 25 MG TAB.SR.24H PO SCH (08:44)
[2017-10-17] MEDS: IV NS 0.9% 1,000 ML IV PRN (09:35)
[2017-10-17] MEDS ORDERED: PEG 3350/NA SULF,BICARB,CL/KCL 4,000 ML BOTTLE PO ONE ×2 (13:00→18:00)
[2017-10-17] MEDS: SOD FERRIC GLUC 125 MG in IV NS 0.9% 100 ML IV SCH (14:27)
[2017-10-17 16:00] VITALS: BP_SYST 109; BP_DIAS 39; BP_DIAS 42
[2017-10-17] MEDS: LEVOFLOXACIN 500 MG /D5W 100ML 100 ML IV SCH (16:07)
--- NOTE | 2017-10-17 18:00 | NUR ---
RN NOTE PATIENT IS NPO EXCEPT FOR MEDS. PATIENT HAS STARTED GOLYTELY AND WILL CONTINUE TO FINISH THE AMOUNT OF THE SOLUTION FOR HER COLONOSCOPY PROCEDURE IN THE AM. WILL ENDORSE TO NEXT SHIFT TO CONTINUE.
--- NOTE | 2017-10-17 19:21 | NUR ---
RN NOTE PATIENT REMAINED STABLE THROUGHOUT SHIFT. NO ACUTE CHANGES OR DISTRESS NOTED. WILL ENDORSE TO NEXT SHIFT TO CONTINUE CONTINUITY OF CARE.
[2017-10-17 20:00] VITALS: BP 131/83
--- NOTE | 2017-10-17 20:00 | NUR ---
BRIELLE RN NOTE RECEIVED BEDSIDE REPORT FROM AM NURSE. PATIENT AWAKE IN BED. ALERT AND ORIENTED X4, SHE IS ABLE TO MAKE NEEDS KNOWN AND VERBALIZE NEEDS. BREATHING EVEN AND UNLABORED WITH NO DISTRESS NOTED, NO SOB AT THIS TIME, ON 2L O2 VIA NC WITH SPO2 OF 95%. IV SITE INTACT AND PATENT. ALL SAFETY MEASURES ARE IMPLEMENTED. BED LOW AND LOCKED POSITION. PLACED CALL LIGHT WITHIN REACH. WILL CONTINUE TO MONITOR.
[2017-10-17] MEDS: ATORVASTATIN 10 MG TABLET PO SCH (22:01)
[2017-10-18] MEDS: ZOLPIDEM TARTRATE 5 MG TABLET PO PRN ×2 (03:05→21:18)
[2017-10-18] MEDS: ALBUTEROL HALF STRENGTH 1.25 MG/3 ML VIAL.NEB NEB SCH ×3 (03:06→10:37)
[2017-10-18] MEDS: IPRATROPIUM NEB FS 0.5 MG/2.5 ML AMPUL.NEB NEB SCH ×4 (03:06→19:30)
[2017-10-18 04:00] VITALS: BP 135/56
[2017-10-18] MEDS: IV NS 0.9% 1,000 ML IV PRN (04:23)
--- NOTE | 2017-10-18 05:35 | NUR ---
BRIELLE RN NOTES PATIENT WAS SLEEPING IN BED, WOKE UP WITH COMPLAIN OF SOB, B/P-80/30 AT 0520 AND 81/60 AT 0530, LETHARGIC,COLD AND CLAMMY. PATIENT WAS NPO SINCE MIDNIGHT AND WAS PREPARED FOR COLONOSCOPY IN THE MORNING. MD BRITTANEY OROZCO NOTIFIED, NEW ORDER NS 250ML BOLUS ORDERED. PATIENT WAS PLACED ON CUSTOMER COUNTER REPRESENTATIVE AND IS AFIB WITH HR OF 140, MD OROZCO NOTIFIED , NO NEW ORDERS AT THIS TIME. Addendum: 10/18/17 at 0554 by ODETTE FAIR RN JOANIE EVANS IS NOTIFIED, STAT ABG IS ORDERED. Addendum: 10/18/17 at 0632 by ODETTE FAIR RN IN BOLUS NS 250ML X1 IS ADMINISTERED ORDERED BY MD OROZCO.
[2017-10-18 05:59] LABS: ABG OXYGEN SATURATION 90.8 % (92.0-98.5); ABG PCO2 38.6 mmHg (35.0-45.0); ABG PH 7.433 (7.350-7.450); AaDO2 205.7 mmHg; COHb 0.3 % (0.5-1.5); MetHb 0.5 % (0.0-1.5); O2Hb 90.1 % (94.0-97.0); SITE, ABG Right Radial
[2017-10-18 06:02] LABS: BASOPHILS % (AUTO) 0.3 % (0.0-2.0); EOSINOPHILS % (AUTO) 1.1 % (0.0-6.0); HEMATOCRIT 30 % (33-45); HEMOGLOBIN 9.8 g/dL (11.5-14.8); MEAN CORPUSCULAR HEMOGLOBIN 28 PG (26.0-33.0); MEAN CORPUSCULAR HGB CONC 33 g/dl (31.0-36.0); MEAN CORPUSCULAR VOLUME 86 fL (82-100); MONOCYTES # (AUTO) 0.6 /CMM (0.1-1.30); MONOCYTES % (AUTO) 7.2 % (2.0-12.0); NEUTROPHILS # (AUTO) 5.5 /CMM (1.8-8.9); NEUTROPHILS % (AUTO) 67.4 % (43.0-81.0); PLATELET COUNT (AUTO) 234 /CMM (150-450); RDW COEFFICIENT OF VARIATION 16.6 (11.5-15.0); RED BLOOD CELL COUNT(AUTO) 3.48 MIL/uL (4.0-5.2); WHITE BLOOD COUNT (AUTO) 8.2 K/uL (4.3-11.0)
--- NOTE | 2017-10-18 06:02 | NUR ---
PATTI NOTES PATIENT'S B/P AT 0600 IS 117/54, HR 106, SPO2 1005 ON 10L O2 NON REBREATHER MASK . Addendum: 10/18/17 at 0747 by ODETTE FAIR RN AT 0530 PATIENT'S BLOOD SUGAR WAS 106.
[2017-10-18 06:23] LABS: ALANINE AMINOTRANSFERASE 16 U/L (12-78); ALBUMIN 2.7 g/dL (3.4-5.0); ALKALINE PHOSPHATASE 51 U/L (46-116); ASPARTATE AMINOTRANSFERASE 20 U/L (15-37); BILIRUBIN,TOTAL 0.3 mg/dL (0.2-1.0); CALCIUM, SERUM 7.9 mg/dL (8.5-10.1); CARBON DIOXIDE 25 mmol/L (21-32); CHLORIDE 107 mmol/L (98-107); CREATININE 1.1 mg/dL (0.6-1.3); GLUCOSE 117 mg/dL (74-106); PHOSPHORUS 3.5 mg/dL (2.5-4.9); POTASSIUM 5.3 mmol/L (3.5-5.1); SODIUM SERUM 138 mmol/L (136-145); TOTAL PROTEIN, SERUM 5.5 g/dL (6.4-8.2); UREA NITROGEN, BLOOD 47 mg/dL (7-18)
--- NOTE | 2017-10-18 06:48 | NUR ---
TALKED TO DR. MARIN ABOUT PATIENT'S CONDITION. AND NEW ORDER AMIODARONE 150ML BOLUS AND DRIP ORDERED FOR RAPID AFIB .
--- NOTE | 2017-10-18 07:00 | NUR ---
RN NOTES RECEIVED PT ON BED, A/Ox3, ON NRM AT THIS TIME , O2 SAT 100%, RT AT THE BEDSIDE , PT GUS SOB , ON TELE HR IN 130'S A. FIB. PHARMACY NOTIFED REGARDING AMIO GTT ORDER. NS AT 100CC/HR RUNNING VIA R FA IV SITE G 22 , SITE CLEAN , DRY AND INTACT, SR UP x3, CALL LIGHTS WITHIN EASY REACH, BED LOCKED AND IN LOWEST POSITION , CONTINUE TO MONITOR
--- NOTE | 2017-10-18 07:00 | NUR ---
BRIELLE RN NOTES PATIENT IN BED, A/O X4 , STABLE,PATIENT WAS PLACED ON DRYWALL PROFESSIONAL AND AFIB ON DRYWALL PROFESSIONAL WITH HR OF 126BMP, ON NON REBREATHER MASK 10L O2 WITH SPO2 OF 100%, NO SOB, NO COMPLAIN OF PAIN AR THIS TIME. MD MARIN NOTIFIED ABOUT PATIENT'S CONDITION AND NEW ORDER IS IN PLACE. ALL SAFETY MEASURES ARE IMPLEMENTED, BED IN LOW AND LOCKED POSITION, CALL LIGHT IN REACH. PATIENT REPORT WILL BE INDORSED TO AM NURSE AMBER FOR RATTLESNAKE FARMER.
[2017-10-18] MEDS ORDERED: AMIODARONE 900 MG in IV D5W 482 ML IV PRN (07:30)
[2017-10-18] MEDS ORDERED: AMIODARONE 150 MG in IV D5W 100 ML IV ONE (07:30)
[2017-10-18 08:00] VITALS: BP 135/55
[2017-10-18] MEDS: GUAIFENESIN LA 600 MG TABLET.SA PO SCH ×2 (08:24→21:05)
[2017-10-18] MEDS: LEVOTHYROXINE SODIUM 112 MCG TABLET PO SCH (08:24)
[2017-10-18] MEDS: PANTOPRAZOLE 40 MG TABLET.DR PO SCH (08:24)
[2017-10-18] MEDS: GABAPENTIN 300 MG CAPSULE PO SCH ×2 (09:00→16:14)
--- NOTE | 2017-10-18 10:00 | NUR ---
RN NOTES PT. PALCED ON O2 2L N/C, O2 SAT 96-97%, NO SOB NOTED , CONTINUE TO MONITOR .
[2017-10-18] MEDS: METOPROLOL SUCCINATE 25 MG TAB.SR.24H PO SCH (10:26)
[2017-10-18] MEDS: CLOPIDOGREL BISULFATE 75 MG TABLET PO SCH (10:26)
[2017-10-18] MEDS: ENOXAPARIN SODIUM 40 MG/0.4 ML DISP.SYRIN SQ SCH (10:27)
[2017-10-18] MEDS ORDERED: FUROSEMIDE 40 MG/4 ML VIAL IV SCH (10:30)
--- NOTE | 2017-10-18 10:37 | NUR ---
RT PATIENT REFUSED HHN TX. SHE JUST WANTED TO SLEEP. NO SOB NOTED ON 3L N/C.
[2017-10-18 12:00] VITALS: BP 119/68
[2017-10-18] MEDS: DIGOXIN INJ 0.5 MG/2 ML AMPUL IV SCH ×2 (12:12→17:03)
--- NOTE | 2017-10-18 13:00 | NUR ---
RN NOTES DR HAYS NOTIFED THAT PT IS IN A.FIB AND HR OF 120'S.
--- NOTE | 2017-10-18 13:40 | NUR ---
RN NOTES PT TO OR AT THIS TIME FOR COLONOSCOPY , STAT PT AND PTT ORDERED .
[2017-10-18] MEDS ORDERED: ETOMIDATE 2 MG/ML VIAL ONE (14:00)
[2017-10-18 14:26] LABS: INR 1.29 (0.87-1.13)
--- NOTE | 2017-10-18 15:06 | NUR ---
RN NOTES PT BACK IN THE ROOM FROM OR , VSS STABLE , NO DISTRESS NOTED , ON TELE HR IN 70'S , SR AT THIS TIME CONTINUE TO MONITOR .
[2017-10-18 16:00] VITALS: BP 94/49
[2017-10-18] MEDS: LEVOFLOXACIN 500 MG /D5W 100ML 100 ML IV SCH (16:14)
[2017-10-18] MEDS: WARFARIN SODIUM 5 MG TABLET PO SCH (17:51)
--- NOTE | 2017-10-18 18:45 | NUR ---
RN NOTES PT STABLE , PT STATED FEELS BETTER NOW , WILL ENDORSE TO BUSINESS OBJECTS ANALYST NURSE FOR CONTINUITY OF CARE
--- NOTE | 2017-10-18 19:00 | NUR ---
RN INITIAL NOTES RECEIVED THE PATIENT AWAKE ON BED, A/O X4. FAMILY AT BEDSIDE. PT IS ON 2L NASAL CANNULA, NO S/S RESP DISTRESS, SATURATING WELL. CURRENTLY SR ON THE MONITOR, HR 70'S. ON DIAPERS ONLY. LEFT HAND 22G WITH AMIO GTT @ 0.5MG/MIN, FLUSHED AND PATENT, NO S/S OF INFILTRATION/INFECTION, DRESSING CDI. BED LOW AND LOCKED, SIDERAILS UP, CALL LIGHT WITHIN REACH. WILL MONITOR
[2017-10-18 20:00] VITALS: BP 105/56
[2017-10-18] MEDS: ATORVASTATIN 10 MG TABLET PO SCH (21:05)
[2017-10-19] VITALS: BP 104/59
[2017-10-19] MEDS: DIGOXIN INJ 0.5 MG/2 ML AMPUL IV SCH
[2017-10-19] MEDS: IPRATROPIUM NEB FS 0.5 MG/2.5 ML AMPUL.NEB NEB SCH ×4 (01:30→19:30)
[2017-10-19 04:00] VITALS: BP 110/54
[2017-10-19 06:26] LABS: BASOPHILS % (AUTO) 0.2 % (0.0-2.0); EOSINOPHILS % (AUTO) 1.9 % (0.0-6.0); HEMATOCRIT 33 % (33-45); HEMOGLOBIN 10.7 g/dL (11.5-14.8); LYMPHOCYTES # (AUTO) 1.9 /CMM (0.8-4.8); LYMPHOCYTES % (AUTO) 19.8 % (20.0-44.0); MEAN CORPUSCULAR HEMOGLOBIN 28 PG (26.0-33.0); MEAN CORPUSCULAR HGB CONC 33 g/dl (31.0-36.0); MEAN CORPUSCULAR VOLUME 86 fL (82-100); MONOCYTES # (AUTO) 0.5 /CMM (0.1-1.30); MONOCYTES % (AUTO) 5.6 % (2.0-12.0); NEUTROPHILS % (AUTO) 72.5 % (43.0-81.0); PLATELET COUNT (AUTO) 221 /CMM (150-450); RED BLOOD CELL COUNT(AUTO) 3.77 MIL/uL (4.0-5.2); WHITE BLOOD COUNT (AUTO) 9.7 K/uL (4.3-11.0)
--- NOTE | 2017-10-19 06:40 | NUR ---
RN CLOSING NOTES PT REMAINS STABLE OF THE MOMENT. ALL DUE MEDS GIVEN, AM CARE PROVIDED. WILL ENDORSE PATSY TO AM RN
[2017-10-19 06:52] LABS: ALANINE AMINOTRANSFERASE 15 U/L (12-78); ALBUMIN 2.8 g/dL (3.4-5.0); ALKALINE PHOSPHATASE 54 U/L (46-116); ASPARTATE AMINOTRANSFERASE 16 U/L (15-37); BILIRUBIN,TOTAL 0.4 mg/dL (0.2-1.0); CALCIUM, SERUM 8.2 mg/dL (8.5-10.1); CARBON DIOXIDE 29 mmol/L (21-32); CHLORIDE 104 mmol/L (98-107); CREATININE 1.3 mg/dL (0.6-1.3); GLUCOSE 108 mg/dL (74-106); MAGNESIUM 1.8 mg/dL (1.8-2.4); PHOSPHORUS 3.4 mg/dL (2.5-4.9); POTASSIUM 5.1 mmol/L (3.5-5.1); SODIUM SERUM 140 mmol/L (136-145); TOTAL PROTEIN, SERUM 5.6 g/dL (6.4-8.2); UREA NITROGEN, BLOOD 45 mg/dL (7-18)
[2017-10-19 06:57] LABS: TROPONIN I 0.265 ng/mL (0.00-0.056)
--- NOTE | 2017-10-19 07:00 | NUR ---
RN INITIAL NOTES RECEIVED PATIENT ON BED, A/O X4. RESPIRATION EVEN AND UNLABORED, ON 2L O2 N/C, NO DISTRESS NOTED, ON TELE SB, HR IN HIGH 50'S, L HAND IV SITE G 22 CLEAN, DRY AND INTACT, WITH AMIO GTT @ 0.5MG/MIN RUNNING ,SR UP x3, CALL LIGHT WITHIN EASY REACH, BED LOCKED AND IN LOWEST POSITION, WILL CONTINUE TO MONITOR.
[2017-10-19 08:00] VITALS: BP 110/56
[2017-10-19] MEDS: GUAIFENESIN LA 600 MG TABLET.SA PO SCH ×2 (08:23→21:13)
[2017-10-19] MEDS: GABAPENTIN 300 MG CAPSULE PO SCH ×2 (08:23→16:09)
[2017-10-19] MEDS: CLOPIDOGREL BISULFATE 75 MG TABLET PO SCH (08:23)
[2017-10-19] MEDS: LEVOTHYROXINE SODIUM 112 MCG TABLET PO SCH (08:23)
[2017-10-19] MEDS: SUCRALFATE 1 G TABLET PO SCH ×4 (08:23→21:13)
[2017-10-19] MEDS: METOPROLOL SUCCINATE 25 MG TAB.SR.24H PO SCH (08:24)
[2017-10-19] MEDS: ENOXAPARIN SODIUM 40 MG/0.4 ML DISP.SYRIN SQ SCH (08:25)
[2017-10-19] MEDS: PANTOPRAZOLE 40 MG TABLET.DR PO SCH (08:25)
[2017-10-19 09:47] LABS: INR 1.46 (0.87-1.13)
[2017-10-19] MEDS: AMIODARONE HCL 200 MG TABLET PO SCH (11:46)
[2017-10-19 12:00] VITALS: BP 101/63
--- NOTE | 2017-10-19 12:00 | NUR ---
RN NOTES PT OUT OF BED TO CHAIR , STABLE , NO DISTRESS NOTED .
[2017-10-19 16:00] VITALS: BP 95/48
[2017-10-19] MEDS: WARFARIN SODIUM 5 MG TABLET PO SCH (16:08)
[2017-10-19] MEDS: LEVOFLOXACIN 500 MG /D5W 100ML 100 ML IV SCH (16:09)
--- NOTE | 2017-10-19 18:47 | NUR ---
RN NOTES PT STATED FEELS BETTER TODAY . SUPPORTIVE SON AT THE BEDSIDE, L HAND IV SITE G 22 CLEAN . DRY, INTACT. WILL ENDOSE TO VP OUTCOMES NURSE FOR CONTINUITY OF CARE .
--- NOTE | 2017-10-19 19:15 | NUR ---
DYE BOARDING MACHINE OPERATOR NOTE PATIENT AOX3, RESTING COMFORTABLY WITH HOB ELEVATED, SPEECH CLEAR, ON 2L O2 VIA NC, NO S/SX OF CARDIAC OR RESPIRATORY DISTRESS, ON TELE SR, LEFT HAND #22G SL PATENT FLUSHING WELL, SITE CDI, SAFETY MAINTAINED AT ALL TIMES, CALL LIGHT WITHIN REACH, BED IN LOW LOCKED POSITION, WILL CONTINUE TO MONITOR FOR ANY CHANGES IN CONDITION.
[2017-10-19 20:00] VITALS: BP 100/59
[2017-10-19] MEDS: ATORVASTATIN 10 MG TABLET PO SCH (21:13)
[2017-10-19] MEDS: ZOLPIDEM TARTRATE 5 MG TABLET PO PRN (21:16)
[2017-10-20] VITALS: BP 99/52
[2017-10-20] MEDS: IPRATROPIUM NEB FS 0.5 MG/2.5 ML AMPUL.NEB NEB SCH ×4 (01:03→19:30)
[2017-10-20 04:00] VITALS: BP 107/50
[2017-10-20 06:01] VITALS: BP 107/50
[2017-10-20 06:32] LABS: BASOPHILS % (AUTO) 0.2 % (0.0-2.0); EOSINOPHILS % (AUTO) 2.1 % (0.0-6.0); HEMATOCRIT 32 % (33-45); HEMOGLOBIN 10.3 g/dL (11.5-14.8); LYMPHOCYTES % (AUTO) 19.8 % (20.0-44.0); MEAN CORPUSCULAR HEMOGLOBIN 28 PG (26.0-33.0); MEAN CORPUSCULAR HGB CONC 33 g/dl (31.0-36.0); MEAN CORPUSCULAR VOLUME 87 fL (82-100); MONOCYTES # (AUTO) 0.7 /CMM (0.1-1.30); MONOCYTES % (AUTO) 6.8 % (2.0-12.0); NEUTROPHILS % (AUTO) 71.1 % (43.0-81.0); PLATELET COUNT (AUTO) 194 /CMM (150-450); RDW COEFFICIENT OF VARIATION 16.5 (11.5-15.0); RED BLOOD CELL COUNT(AUTO) 3.66 MIL/uL (4.0-5.2); WHITE BLOOD COUNT (AUTO) 9.9 K/uL (4.3-11.0)
[2017-10-20 06:58] LABS: CALCIUM, SERUM 8.2 mg/dL (8.5-10.1); CARBON DIOXIDE 29 mmol/L (21-32); CHLORIDE 103 mmol/L (98-107); CREATININE 1.3 mg/dL (0.6-1.3); GLUCOSE 104 mg/dL (74-106); POTASSIUM 4.3 mmol/L (3.5-5.1); SODIUM SERUM 137 mmol/L (136-145); UREA NITROGEN, BLOOD 43 mg/dL (7-18)
[2017-10-20 06:59] LABS: INR 3.31 (0.87-1.13)
--- NOTE | 2017-10-20 07:30 | NUR ---
VB NET DEVELOPER NOTES PT IN BED, AWAKE, ALERT AND ORIENTED, NO COMPLAINT OF PAIN, RESPIRATIONS NORMAL, NOT IN DISTRESS, CALL LIGHT WITHIN REACH, KEPT WARM AND COMFORTABLE IN BED, KEPT HOB ELEVATED, NEEDS ATTENDED.
[2017-10-20] MEDS: LEVOTHYROXINE SODIUM 112 MCG TABLET PO SCH (07:45)
[2017-10-20] MEDS: PANTOPRAZOLE 40 MG TABLET.DR PO SCH (07:45)
[2017-10-20] MEDS: SUCRALFATE 1 G TABLET PO SCH ×4 (07:45→21:53)
[2017-10-20 08:00] VITALS: BP 95/61
[2017-10-20] MEDS: CLOPIDOGREL BISULFATE 75 MG TABLET PO SCH (08:45)
[2017-10-20] MEDS: GUAIFENESIN LA 600 MG TABLET.SA PO SCH ×2 (08:45→21:53)
[2017-10-20] MEDS: AMIODARONE HCL 200 MG TABLET PO SCH (08:45)
[2017-10-20] MEDS: GABAPENTIN 300 MG CAPSULE PO SCH ×3 (08:45→17:00)
[2017-10-20] MEDS: ENOXAPARIN SODIUM 40 MG/0.4 ML DISP.SYRIN SQ SCH (08:49)
[2017-10-20] MEDS: METOPROLOL SUCCINATE 25 MG TAB.SR.24H PO SCH (09:00)
--- NOTE | 2017-10-20 11:14 | NUR ---
MARKETING SALES MANAGER NOTES PT AWAKE, SITTING IN HER CHAIR, NOT IN PAIN OR DISTRESS, SEEN BY DR. CESPEDES, PLAN OF CARE DISCUSSED WITH PT, VERBALIZED UNDERSTANDING, RECEIVED ORDER FROM MD TO HOLD COUMADIN AND TO STOP LOVENOX, NOTED AND CARRIED OUT.
--- NOTE | 2017-10-20 13:45 | NUR ---
CORE SHAPER TOP NOTES PT ABLE TO WALK WITH PHYSICAL THERAPIST USING A WALKER, TOLERATED WELL, PT NOW SITTING IN HER CHAIR, O2 SAT 97% ON ROOM AIR, HEART RATE 82, NO COMPLAINT OF PAIN OR ANY DISCOMFORT.
[2017-10-20 16:00] VITALS: BP 95/57
[2017-10-20] MEDS: WARFARIN SODIUM 1 MG TABLET PO SCH (17:00)
--- NOTE | 2017-10-20 18:19 | NUR ---
ROOFER APPLICATOR NOTES PT AWAKE, SITTING IN BED, EATING DINNER, NO COMPLAINT OF PAIN, NO SOB, TOLERATING ROOM AIR WELL, VISITED BY FAMILY MEMBERS, PM MEDS GIVEN, TOLERATING CURRENT DIET, CALL LIGHT WITHIN REACH, PM CARE PROVIDED, ALL NEEDS ATTENDED.
[2017-10-20 20:00] VITALS: BP 103/66
--- NOTE | 2017-10-20 20:00 | NUR ---
TELE 1 RN NOTE PT IN BED AWAKE. A/O X 3, NO SOB, NO DISTRESS OR DISCOMFORT NOTED. DENIES PAIN. LT HAND #22 G S/L INTACT AND PATENT. ON TELE MONITOR SR HR 79. SIDE RAILS UP X 2 AND CALL LIGHT WITHIN REACH. VSS. CONTINUE TO MONITOR HER.
[2017-10-20] MEDS: ATORVASTATIN 10 MG TABLET PO SCH (21:53)
[2017-10-20] MEDS: ZOLPIDEM TARTRATE 5 MG TABLET PO PRN (21:53)
--- NOTE | 2017-10-20 21:53 | NUR ---
TELE 1 RN NOTE PT AWAKE AND ASKING FOR SLEEPING MED. AMBIEN 5 MG PO GIVEN. CONTINUE TO MONITOR.
[2017-10-21] VITALS: BP 90/48
[2017-10-21] MEDS: IPRATROPIUM NEB FS 0.5 MG/2.5 ML AMPUL.NEB NEB SCH ×4 (00:52→19:42)
[2017-10-21 04:00] VITALS: BP 122/65
[2017-10-21 06:33] LABS: CALCIUM, SERUM 8.5 mg/dL (8.5-10.1); CARBON DIOXIDE 29 mmol/L (21-32); CHLORIDE 105 mmol/L (98-107); CREATININE 1.2 mg/dL (0.6-1.3); GLUCOSE 102 mg/dL (74-106); POTASSIUM 4.5 mmol/L (3.5-5.1); SODIUM SERUM 140 mmol/L (136-145); UREA NITROGEN, BLOOD 43 mg/dL (7-18)
--- NOTE | 2017-10-21 06:37 | NUR ---
TELE 1 RN NOTE PT IN BED ASLEEP, AROUSABLE. NO DISTRESS OR DISCOMFORT NOTED. DENIES PAIN. SL IN LT HAND #22 G INTACT AND PATENT. ON TELE SR HR 75. ALL NEEDS ATTENDED. SIDE RAILS UP X 2 AND CALL LIGHT WITHIN REACH. WILL ENDORSE TO DAY SHIFT NURSE FOR CONTINUE TO CARE.
[2017-10-21 06:42] LABS: BASOPHILS % (AUTO) 0.1 % (0.0-2.0); EOSINOPHILS % (AUTO) 2.7 % (0.0-6.0); HEMATOCRIT 32 % (33-45); HEMOGLOBIN 10.4 g/dL (11.5-14.8); LYMPHOCYTES # (AUTO) 1.9 /CMM (0.8-4.8); LYMPHOCYTES % (AUTO) 21.3 % (20.0-44.0); MEAN CORPUSCULAR HEMOGLOBIN 28 PG (26.0-33.0); MEAN CORPUSCULAR HGB CONC 33 g/dl (31.0-36.0); MEAN CORPUSCULAR VOLUME 86 fL (82-100); MONOCYTES # (AUTO) 0.7 /CMM (0.1-1.30); NEUTROPHILS # (AUTO) 6.2 /CMM (1.8-8.9); NEUTROPHILS % (AUTO) 67.9 % (43.0-81.0); PLATELET COUNT (AUTO) 199 /CMM (150-450); RDW COEFFICIENT OF VARIATION 16.9 (11.5-15.0); RED BLOOD CELL COUNT(AUTO) 3.67 MIL/uL (4.0-5.2); WHITE BLOOD COUNT (AUTO) 9.1 K/uL (4.3-11.0)
--- NOTE | 2017-10-21 07:15 | NUR ---
HYDRAULIC AND PLUMBING INSTALLER INITIAL NOTES RECEIVED REPORT AND PATIENT FROM PM NURSE, PATIENT RESTING IN BED, ON ROOM AIR SATURATING ABOVE 95%, NO SOB OR ACUTE DISTRESS, ON TELE MONITOR SINUS RYTHME HEART RATE 81, LEFT HAND 22G IV SITE INTACT AND PATENT SALINE LOCKED, NO INFILTRATION NOTED, KCI MATTRESS ON, ALL NEEDS MET, ALL SAFETY MEASURES INITIATED, WILL CONTINUE TO MONITOR.
[2017-10-21 07:59] LABS: INR 5.29 (0.87-1.13)
[2017-10-21 08:00] VITALS: BP 93/60
[2017-10-21] MEDS: METOPROLOL SUCCINATE 25 MG TAB.SR.24H PO SCH (08:41)
[2017-10-21] MEDS: GABAPENTIN 300 MG CAPSULE PO SCH ×2 (09:00→16:04)
[2017-10-21] MEDS: GUAIFENESIN LA 600 MG TABLET.SA PO SCH ×2 (09:16→21:35)
[2017-10-21] MEDS: CLOPIDOGREL BISULFATE 75 MG TABLET PO SCH (09:17)
[2017-10-21] MEDS: AMIODARONE HCL 200 MG TABLET PO SCH (09:17)
[2017-10-21] MEDS: LEVOTHYROXINE SODIUM 112 MCG TABLET PO SCH (09:22)
[2017-10-21] MEDS: SUCRALFATE 1 G TABLET PO SCH ×4 (09:22→21:35)
[2017-10-21] MEDS: PANTOPRAZOLE 40 MG TABLET.DR PO SCH (09:23)
[2017-10-21 16:00] VITALS: BP_SYST 109; BP_DIAS 62; BP_DIAS 67
[2017-10-21] MEDS: WARFARIN SODIUM 1 MG TABLET PO SCH (16:03)
--- NOTE | 2017-10-21 18:47 | NUR ---
AUTOMATIC OVEN OPERATOR ENDING NOTES PATIENT RESTING IN BED WITH NO ACUTE CHANGES NOTED, ALL DUE MEDS GIVEN, ALL NEEDS MET, ON TELE MONITOR SINUS RYTHME, IV SITE INTACT PATENT, WILL ENDORSE TO PM NURSE FOR CONTINUITY OF CARE.
--- NOTE | 2017-10-21 19:56 | NUR ---
FIRER BOILER INITIAL NOTES RECEIVED REPORT AND PATIENT FROM AM NURSE, PATIENT RESTING IN BED, ON ROOM AIR SATURATING ABOVE 94%, NO SOB OR ACUTE DISTRESS, ON TELE MONITOR SINUS RYTHME HEART RATE 80'S, LEFT HAND 22G IV SITE INTACT AND PATENT SALINE LOCKED, NO INFILTRATION NOTED, KCI MATTRESS ON, ALL NEEDS MET, ALL SAFETY MEASURES INITIATED, WILL CONTINUE TO MONITOR.
[2017-10-21 20:00] VITALS: BP 107/71
[2017-10-21] MEDS: ZOLPIDEM TARTRATE 5 MG TABLET PO PRN (21:35)
[2017-10-21] MEDS: ATORVASTATIN 10 MG TABLET PO SCH (21:35)
[2017-10-22] VITALS: BP 101/62
[2017-10-22] MEDS: IPRATROPIUM NEB FS 0.5 MG/2.5 ML AMPUL.NEB NEB SCH ×4 (01:00→19:40)
[2017-10-22 02:00] VITALS: BP 116/68
[2017-10-22 04:00] VITALS: BP 116/68
--- NOTE | 2017-10-22 06:16 | NUR ---
RN TEL CLOSING NOTE PT FOR PENDING DC WHEN STABLE BACK TO SNF, BLD CX (-), PT 56.0 AND INR 5.29H NO BLEEDING WILL ENDORSE TO AM RN TO F/U ON PTINR RESULTS.
[2017-10-22 06:33] LABS: BASOPHILS % (AUTO) 0.2 % (0.0-2.0); EOSINOPHILS % (AUTO) 1.9 % (0.0-6.0); HEMATOCRIT 31 % (33-45); HEMOGLOBIN 10.1 g/dL (11.5-14.8); LYMPHOCYTES # (AUTO) 1.7 /CMM (0.8-4.8); LYMPHOCYTES % (AUTO) 22.8 % (20.0-44.0); MEAN CORPUSCULAR HEMOGLOBIN 28 PG (26.0-33.0); MEAN CORPUSCULAR HGB CONC 32 g/dl (31.0-36.0); MEAN CORPUSCULAR VOLUME 87 fL (82-100); MONOCYTES # (AUTO) 0.6 /CMM (0.1-1.30); MONOCYTES % (AUTO) 7.8 % (2.0-12.0); NEUTROPHILS # (AUTO) 5.1 /CMM (1.8-8.9); NEUTROPHILS % (AUTO) 67.3 % (43.0-81.0); PLATELET COUNT (AUTO) 173 /CMM (150-450); RDW COEFFICIENT OF VARIATION 17.3 (11.5-15.0); WHITE BLOOD COUNT (AUTO) 7.6 K/uL (4.3-11.0)
[2017-10-22 06:35] LABS: INR 3.38 (0.87-1.13)
[2017-10-22 06:54] LABS: CALCIUM, SERUM 8.2 mg/dL (8.5-10.1); CARBON DIOXIDE 27 mmol/L (21-32); CHLORIDE 105 mmol/L (98-107); CREATININE 1.1 mg/dL (0.6-1.3); GLUCOSE 92 mg/dL (74-106); POTASSIUM 4.3 mmol/L (3.5-5.1); SODIUM SERUM 140 mmol/L (136-145); UREA NITROGEN, BLOOD 41 mg/dL (7-18)
--- NOTE | 2017-10-22 07:30 | NUR ---
PAYROLL BENEFITS CLERK INITIAL NOTES RECEIVED PATIENT AWAKE IN BED AOX3, NO SIGNS OF DISTRESS, NO CO OF PAIN ON ROOM AIR SATURATING 94% O2, ON TELE MONITORING SR, IN DIAPER, AMBULATORY WITH ASSISTANCE, IV L HAND, SL, CLEAN AND PATENT, BED IN LOW AND LOCKED POSITION CALL LIGHT WITHIN REACH, WILL CONTINUE TO MONITOR.
[2017-10-22 08:00] VITALS: BP 106/65
[2017-10-22] MEDS: LEVOTHYROXINE SODIUM 112 MCG TABLET PO SCH (09:00)
[2017-10-22] MEDS: CLOPIDOGREL BISULFATE 75 MG TABLET PO SCH (09:00)
[2017-10-22] MEDS: PANTOPRAZOLE 40 MG TABLET.DR PO SCH (09:00)
[2017-10-22] MEDS: GUAIFENESIN LA 600 MG TABLET.SA PO SCH ×2 (09:00→21:06)
[2017-10-22] MEDS: GABAPENTIN 300 MG CAPSULE PO SCH ×2 (09:00→16:44)
[2017-10-22] MEDS: METOPROLOL SUCCINATE 25 MG TAB.SR.24H PO SCH (09:00)
[2017-10-22] MEDS: SUCRALFATE 1 G TABLET PO SCH ×4 (09:00→21:06)
[2017-10-22] MEDS: AMIODARONE HCL 200 MG TABLET PO SCH (09:03)
[2017-10-22 16:00] VITALS: BP 119/62
[2017-10-22] MEDS: WARFARIN SODIUM 1 MG TABLET PO SCH (16:44)
--- NOTE | 2017-10-22 18:52 | NUR ---
JAVA PROGRAMMER ANALYST END NOTES PATIENT RESTING IN BED, NO SIGNS OF DISTRESS, ALL NEEDS MET, WILL ENDORSE TO MOTOR OPERATOR FOR CONTINUITY OF CARE.
--- NOTE | 2017-10-22 19:05 | NUR ---
RN M/S NOTE PATIENT AOX3, ON ROOM AIR SITTING WITH HOB ELEVATED, NO S/SX OF CARDIAC OR RESPIRATORY DISTRESS, LEFT HAND #22G SL PATENT FLUSHING WELL, SITE CDI, SKIN KEPT CLEAN AND DRY, SAFETY MAINTAINED AT ALL TIMES, CALL LIGHT WITHIN REACH, BED IN LOW LOCKED POSITION, WILL CONTINUE TO MONITOR FOR ANY CHANGES IN CONDITION.
[2017-10-22 20:00] VITALS: BP 92/46
[2017-10-22] MEDS: ZOLPIDEM TARTRATE 5 MG TABLET PO PRN (21:06)
[2017-10-22] MEDS: ATORVASTATIN 10 MG TABLET PO SCH (21:06)
[2017-10-23] MEDS: IPRATROPIUM NEB FS 0.5 MG/2.5 ML AMPUL.NEB NEB SCH ×3 (01:30→13:23)
[2017-10-23 04:00] VITALS: BP 114/49
--- NOTE | 2017-10-23 07:15 | NUR ---
MS/RN INITIAL NOTES RECEIVED PT IN BED, A/OX3, DENIES ANY PAIN AT THIS TIME. TOLERATING ROOM AIR WELL, NO SOB NOTED. WITH INTACT LHAND G22 SL. NO SIGNS OF INFECTION NOTED. NO SIGNS OF BLEEDING NOTED. NOTED MULTIPLE BRUISES. HOB ELEVATED. SAFETY MEASURES IN PLACED. CALL LIGHT WITHIN REACH. WILL CONT TO MONITOR
[2017-10-23 07:49] LABS: BASOPHILS % (AUTO) 0.4 % (0.0-2.0); EOSINOPHILS % (AUTO) 1.9 % (0.0-6.0); HEMATOCRIT 31 % (33-45); LYMPHOCYTES % (AUTO) 24.8 % (20.0-44.0); MEAN CORPUSCULAR HEMOGLOBIN 28 PG (26.0-33.0); MEAN CORPUSCULAR HGB CONC 33 g/dl (31.0-36.0); MEAN CORPUSCULAR VOLUME 86 fL (82-100); MONOCYTES # (AUTO) 0.6 /CMM (0.1-1.30); MONOCYTES % (AUTO) 8.2 % (2.0-12.0); NEUTROPHILS # (AUTO) 5.1 /CMM (1.8-8.9); NEUTROPHILS % (AUTO) 64.7 % (43.0-81.0); PLATELET COUNT (AUTO) 191 /CMM (150-450); RDW COEFFICIENT OF VARIATION 17.2 (11.5-15.0); RED BLOOD CELL COUNT(AUTO) 3.54 MIL/uL (4.0-5.2); WHITE BLOOD COUNT (AUTO) 7.9 K/uL (4.3-11.0)
[2017-10-23] MEDS: SUCRALFATE 1 G TABLET PO SCH ×3 (07:58→17:19)
[2017-10-23] MEDS: LEVOTHYROXINE SODIUM 112 MCG TABLET PO SCH (07:58)
[2017-10-23] MEDS: PANTOPRAZOLE 40 MG TABLET.DR PO SCH (07:58)
[2017-10-23 08:00] VITALS: BP 96/48
[2017-10-23 08:02] LABS: CALCIUM, SERUM 8.3 mg/dL (8.5-10.1); CARBON DIOXIDE 27 mmol/L (21-32); CHLORIDE 107 mmol/L (98-107); CREATININE 1.1 mg/dL (0.6-1.3); GLUCOSE 91 mg/dL (74-106); POTASSIUM 4.1 mmol/L (3.5-5.1); SODIUM SERUM 140 mmol/L (136-145); UREA NITROGEN, BLOOD 37 mg/dL (7-18)
[2017-10-23 08:05] LABS: INR 2.37 (0.87-1.13)
[2017-10-23] MEDS: GABAPENTIN 300 MG CAPSULE PO SCH ×2 (08:13→17:19)
[2017-10-23] MEDS: GUAIFENESIN LA 600 MG TABLET.SA PO SCH (08:13)
[2017-10-23] MEDS: AMIODARONE HCL 200 MG TABLET PO SCH (08:13)
[2017-10-23] MEDS: METOPROLOL SUCCINATE 25 MG TAB.SR.24H PO SCH (08:14)
[2017-10-23] MEDS: CLOPIDOGREL BISULFATE 75 MG TABLET PO SCH (08:14)
--- NOTE | 2017-10-23 08:16 | NUR ---
PT RESTING COMFORTABLY REQUESTING TO SLEEP. ZERO DISTRESS NOTED. PT ON ROOM AIR
[2017-10-23] MEDS ORDERED: ONCOUMADIN PO (11:00)
[2017-10-23 16:00] VITALS: BP 115/49
[2017-10-23] MEDS: WARFARIN SODIUM 1 MG TABLET PO SCH ×2 (17:00→17:18)
--- NOTE | 2017-10-23 17:02 | NUR ---
RN NOTES REPORT GIVEN TO PATTI SEWELL
--- NOTE | 2017-10-23 18:43 | NUR ---
RN D/C NOTES D/C TO [facility] IN [facility] TRANSPORTED BY AMBULANCE, IN STABLE CONDITION, NO SIGNS OF DISTRESS. GET STEPHENS D/C. PRESSURE DRESSING IN PLACED. NO SIGNS OF BLEEDING/INFECTION NOTED. D/C INSTRUCTIONS GIVEN TO PT. VERBALIZED UNDERSTANDING. SAFETY MEASURES OBSERVED AT ALL TIMES. ALL NEEDS ANTICIPATED. D/C
== END 2017-10-23 18:50 | DRG 194 ==
LOC: ER 04:07 → TELE1 08:39 → TELE-TD 12:19 → MEDSG1 10-13 09:55 → TELE-TD 10-18 06:51 → MEDSG1 10-19 08:20 → TELE1 10-19 17:49 → MEDSG1 10-22 09:04
PROVIDERS: ADMIT Internal Medicine; ATTEND Internal Medicine
PROC: 0DB98ZX Excision of Duodenum, Via Natural or Artificial Opening Endoscopic, Diagnostic (ICD-10-PCS; principal; 2017-10-15 14:30)
PROC: 0DB78ZX Excision of Stomach, Pylorus, Via Natural or Artificial Opening Endoscopic, Diagnostic (ICD-10-PCS; principal; 2017-10-15 14:30)
PROC: 0DJD8ZZ Inspection of Lower Intestinal Tract, Via Natural or Artificial Opening Endoscopic (ICD-10-PCS; 2017-10-18)
DX: I11.0 Hypertensive heart disease with heart failure (principal); J96.01 Acute respiratory failure with hypoxia; N17.9 Acute kidney failure, unspecified; J18.9 Pneumonia, unspecified organism; D68.59 Other primary thrombophilia; I27.20 Pulmonary hypertension, unspecified; J90 Pleural effusion, not elsewhere classified; I48.0 Paroxysmal atrial fibrillation; Z79.01 Long term (current) use of anticoagulants; I50.33 Acute on chronic diastolic (congestive) heart failure; K21.9 Gastro-esophageal reflux disease without esophagitis; Z86.73 Personal history of transient ischemic attack (TIA), and cerebral infarction without residual deficits; E78.5 Hyperlipidemia, unspecified; K29.70 Gastritis, unspecified, without bleeding; D50.9 Iron deficiency anemia, unspecified; E03.9 Hypothyroidism, unspecified; I25.10 Atherosclerotic heart disease of native coronary artery without angina pectoris; K44.9 Diaphragmatic hernia without obstruction or gangrene; Z87.891 Personal history of nicotine dependence; G89.29 Other chronic pain; M48.00 Spinal stenosis, site unspecified; I08.0 Rheumatic disorders of both mitral and aortic valves; K57.30 Diverticulosis of large intestine without perforation or abscess without bleeding; J40 Bronchitis, not specified as acute or chronic; T50.2X5A Adverse effect of carbonic-anhydrase inhibitors, benzothiadiazides and other diuretics, initial encounter; Y92.009 Unspecified place in unspecified non-institutional (private) residence as the place of occurrence of the external cause; T38.0X5A Adverse effect of glucocorticoids and synthetic analogues, initial encounter
CPT/HCPCS: 36415; 36600; 71045-TC; 78582; 80048-TC; 80053-TC; 80061-TC; 80076-TC; 82272-TC; 82728-TC; 82803-TC; 82962-TC; 83540-TC; 83735-TC; 83880; 84100-TC; 84439-TC; 84443-TC; 84484-TC; 85025-TC; 85378-TC; 85610-TC; 85730-TC; 87081-TC; 87400; 88305-TC; 88313-TC; 88342; 93307-TC; 93970-TC; 94760-TC; 94799-TC; 97112-TC; 97116-TC; 97530-TC; A4606; A9540; A9567; J0282; J1160; J1650; J1940; J1956; J2704; J2916; J2930; J3475; J3490; J7030; J7050; J7060; Z7610

== ENCOUNTER 2018-06-09 19:18 | Inpatient (IN) | payer MEDICAID, MEDICARE ==
[~2018-06-09] VITALS: Ht 162.6 cm; Wt 78.5 kg
[~2018-06-09 19:18] MED LIST: AMIO200T4 PO; ATOR20TA PO; CLOP75TA15 PO; GABA-534 PO; ICOS1CAP PO; LEVO112T2 PO; METO-356 PO; OMEP40CA37 PO; ONCOUMADIN PO; TRAM50TA2 PO; VALS160T2 PO; ZOLP10TA2 PO; [UNRECOGNIZED DRUG - CODE] PO
--- NOTE | 2018-06-09 19:40 | NUR ---
[id number] FROM HOME, C/O BILAT' KNEE PAIN, ALSO C/O PRODUCTIVE COUGH X 10 DAYS, VS STABLE, ON R/A WHEEZING, AFEBRILE, PLACED ON ER BED 10, AWAITING FOR ER MD TO ERI FLEMING.
[2018-06-09] MEDS ORDERED: ALBUTEROL FS 2.5 MG/3 ML VIAL.NEB NEB ONE (20:00)
[2018-06-09] MEDS ORDERED: predniSONE 20 MG TABLET PO ONE (20:00)
[2018-06-09] MEDS ORDERED: ALBUTEROL FS 2.5 MG/3 ML VIAL.NEB ONE ×2 (20:03→21:17)
[2018-06-09] MEDS ORDERED: predniSONE 20 MG TABLET ONE (20:04)
--- NOTE | 2018-06-09 20:10 | NUR ---
PT SEEN AND EVAL DONE BY ER MD, ORDERS ENTERED.
--- NOTE | 2018-06-09 20:29 | NUR ---
XR CHEST ORDERED.
[2018-06-09] MEDS ORDERED: ALBUTEROL FS 2.5 MG/3 ML VIAL.NEB CONTNEB ONE (21:00)
[2018-06-09] MEDS ORDERED: TRAMADOL HCL 50 MG TABLET PO ONE (21:00)
[2018-06-09 21:13] LABS: BASOPHILS % (AUTO) 0.2 % (0.0-2.0); EOSINOPHILS % (AUTO) 0.7 % (0.0-6.0); HEMATOCRIT 36 % (33-45); HEMOGLOBIN 11.6 g/dL (11.5-14.8); LYMPHOCYTES # (AUTO) 1.4 /CMM (0.8-4.8); LYMPHOCYTES % (AUTO) 16.3 % (20.0-44.0); MEAN CORPUSCULAR HGB CONC 33 g/dl (31.0-36.0); MEAN CORPUSCULAR VOLUME 88 fL (82-100); MONOCYTES # (AUTO) 0.6 /CMM (0.1-1.30); MONOCYTES % (AUTO) 7.5 % (2.0-12.0); NEUTROPHILS # (AUTO) 6.5 /CMM (1.8-8.9); NEUTROPHILS % (AUTO) 75.3 % (43.0-81.0); PLATELET COUNT (AUTO) 206 /CMM (150-450); RED BLOOD CELL COUNT(AUTO) 4.04 MIL/uL (4.0-5.2); WHITE BLOOD COUNT (AUTO) 8.6 K/uL (4.3-11.0)
[2018-06-09] MEDS ORDERED: TRAMADOL HCL 50 MG TABLET ONE (21:15)
[2018-06-09 21:26] LABS: CALCIUM, SERUM 9.1 mg/dL (8.5-10.1); CARBON DIOXIDE 29 mmol/L (21-32); CHLORIDE 102 mmol/L (98-107); CREATININE 1.1 mg/dL (0.6-1.3); GLUCOSE 115 mg/dL (74-106); POTASSIUM 3.7 mmol/L (3.5-5.1); SODIUM SERUM 138 mmol/L (136-145); UREA NITROGEN, BLOOD 18 mg/dL (7-18)
[2018-06-09] MEDS ORDERED: ASPIRIN 81 MG TAB.CHEW PO ONE (21:30)
--- NOTE | 2018-06-09 22:49 | NUR ---
CALLED FOR REPORT GIVEN TO TIARA FLEMING GOING TO 113-2. Akshat CURTIS ADMITTING.
[2018-06-09] MEDS ORDERED: ZOLPIDEM TARTRATE 10 MG TABLET PO PRN (23:30)
[2018-06-09] MEDS ORDERED: ONDANSETRON HCL/PF 4 MG/2 ML VIAL IVP PRN (23:30)
[2018-06-09] MEDS ORDERED: ALBUTEROL FS 2.5 MG/3 ML VIAL.NEB NEB PRN (23:30)
[2018-06-09] MEDS ORDERED: TEMAZEPAM 15 MG CAPSULE PO PRN (23:30)
[2018-06-09] MEDS ORDERED: MORPHINE SULFATE INJ 2 MG/ML DISP.SYRIN IV PRN (23:30)
[2018-06-09] MEDS ORDERED: TRAMADOL HCL 50 MG TABLET PO SCH (23:30)
[2018-06-09] MEDS ORDERED: ASPIRIN 81 MG TAB.CHEW ONE (23:37)
[2018-06-09 23:45] VITALS: BP 122/69
--- NOTE | 2018-06-10 | NUR ---
SECURITY INSTALLER RECEIVE PT VIA GURNEY AT 06/09/18 AT 2320 FROM [facility], PT A/O X 3, ADMIT TO TELE SR 78. RESPIRATIONS EVEN AND UNLABORED. HEAD TO TOE ASSESSMENT IS DONE SKIN IS INTACT. NO COMPLAIN OF PAIN AT THIS TIME. KEPT CLEAN AND DRY AND COMFORTABLE. SAFETY MEASURES IN PLACE. WILL CONTINUE TO MONITOR.
--- NOTE | 2018-06-10 00:30 | NUR ---
SEEN BY DR. CURTIS REPORTED LATEST TROPONIN OF 0.401 WITH NO NEW ORDERS NOTED AND CARRIED OUT
[2018-06-10] MEDS: ATORVASTATIN 10 MG TABLET PO SCH ×2 (00:54→21:19)
[2018-06-10 04:00] VITALS: BP 124/61
[2018-06-10 06:15] LABS: IRON, SERUM 12 ug/dl (50-175); TOTAL IRON BINDING CAPACITY 254 ug/dl (250-450)
[2018-06-10 06:21] LABS: CHOLESTEROL 158 mg/dL (<200); HDL CHOLESTEROL 81 mg/dL (40-60); HEMATOCRIT 32 % (33-45); HEMOGLOBIN 10.6 g/dL (11.5-14.8); LDL 72 mg/dL (0-99); LYMPHOCYTES # (AUTO) 0.6 /CMM (0.8-4.8); LYMPHOCYTES % (AUTO) 6.8 % (20.0-44.0); MEAN CORPUSCULAR HGB CONC 34 g/dl (31.0-36.0); MEAN CORPUSCULAR VOLUME 87 fL (82-100); MONOCYTES # (AUTO) 0.1 /CMM (0.1-1.30); MONOCYTES % (AUTO) 1.4 % (2.0-12.0); NEUTROPHILS % (AUTO) 91.8 % (43.0-81.0); PLATELET COUNT (AUTO) 219 /CMM (150-450); RED BLOOD CELL COUNT(AUTO) 3.64 MIL/uL (4.0-5.2); THYROID STIMULATING HORMONE 1.907 uIU/mL (0.358-3.74); TRIGLYCERIDES 33 mg/dL (30-150); WHITE BLOOD COUNT (AUTO) 8.8 K/uL (4.3-11.0)
[2018-06-10 06:22] LABS: ALANINE AMINOTRANSFERASE 20 U/L (12-78); ALBUMIN 3.2 g/dL (3.4-5.0); ALKALINE PHOSPHATASE 85 U/L (46-116); ASPARTATE AMINOTRANSFERASE 17 U/L (15-37); BILIRUBIN,TOTAL 0.4 mg/dL (0.2-1.0); CARBON DIOXIDE 26 mmol/L (21-32); CHLORIDE 105 mmol/L (98-107); GLUCOSE 164 mg/dL (74-106); MAGNESIUM 1.8 mg/dL (1.8-2.4); PHOSPHORUS 4.1 mg/dL (2.5-4.9); POTASSIUM 3.8 mmol/L (3.5-5.1); SODIUM SERUM 142 mmol/L (136-145); TOTAL PROTEIN, SERUM 6.7 g/dL (6.4-8.2); UREA NITROGEN, BLOOD 20 mg/dL (7-18)
--- NOTE | 2018-06-10 06:48 | NUR ---
INVESTOR RELATIONS SPECIALIST CLOSING NOTE PT IN BED ASLEEP EASILY AWAKEN, RESPIRATIONS EVEN AND UNLABORED. SR 87 IN THE TELE MONITOR, NOT IN DISTRESS, STABLE. NEEDS ATTENDED AND ANTICIPATED, KEPT DRY, CLEAN AND COMFORT. NO COMPLAIN OF PAIN. OFFLOAD HEELS AND ELBOWS AT ALL TIMES. SAFETY MEASURES IN PLACE, BED IN LOW LOCKED POSITION, CALL LIGHT WITHIN EASY REACH. ENDORSE TO NEXT SHIFT CONTINUITY OF CARE.
[2018-06-10 08:00] VITALS: BP 118/53
[2018-06-10] MEDS: METOPROLOL SUCCINATE 25 MG TAB.SR.24H PO SCH (08:39)
[2018-06-10] MEDS: LEVOTHYROXINE SODIUM 112 MCG TABLET PO SCH (08:39)
[2018-06-10] MEDS: CLOPIDOGREL BISULFATE 75 MG TABLET PO SCH (08:40)
[2018-06-10] MEDS: PANTOPRAZOLE 40 MG TABLET.DR PO SCH (08:40)
[2018-06-10] MEDS: AMIODARONE HCL 200 MG TABLET PO SCH (08:40)
[2018-06-10] MEDS: GABAPENTIN 300 MG CAPSULE PO SCH ×2 (08:40→16:36)
[2018-06-10] MEDS: DOCUSATE SODIUM 100 MG CAPSULE PO SCH ×2 (08:40→16:36)
[2018-06-10] MEDS: VALSARTAN 80 MG TABLET PO SCH (09:00)
[2018-06-10] MEDS ORDERED: FUROSEMIDE 20 MG/2 ML VIAL IV SCH (09:00)
[2018-06-10] MEDS ORDERED: [UNRECOGNIZED DRUG - OTHER] PO SCH (09:00)
[2018-06-10] MEDS ORDERED: Icosapent Ethyl (Vascepa) 1 GM PO SCH (09:00)
[2018-06-10] MEDS: FLUTICASONE/VILANTEROL 1 EACH BLST.W.DEV IH SCH (10:34)
[2018-06-10] MEDS: TRAMADOL HCL 50 MG TABLET PO PRN (11:51)
[2018-06-10 12:00] VITALS: BP 108/44
[2018-06-10] MEDS: FUROSEMIDE 40 MG/4 ML VIAL IV SCH ×3 (13:37→21:20)
[2018-06-10] MEDS: POTASSIUM CHLORIDE 20 MEQ TAB.PRT.SR PO SCH ×3 (13:37→16:32)
[2018-06-10 16:00] VITALS: BP 105/70
[2018-06-10] MEDS: IPRATROPIUM NEB FS 0.5 MG/2.5 ML AMPUL.NEB NEB SCH ×2 (16:00→19:30)
[2018-06-10] MEDS: methylPREDNISolone SOD SUCC 125 MG/2ML VIAL IV SCH ×2 (16:39→21:20)
[2018-06-10] MEDS: AMOX/CLAVULANATE 875 MG TABLET PO SCH (16:48)
[2018-06-10] MEDS ORDERED: WARFARIN SODIUM 2 MG TABLET PO SCH ×2 (17:00)
[2018-06-10] MEDS: ACETAMINOPHEN 325 MG TABLET PO PRN (17:47)
--- NOTE | 2018-06-10 19:30 | NUR ---
RN NOTES RECEIVED PATIENT AWAKE IN BED, NO SIGNS OF ACUTE DISTRESS NOTED, RESPIRATIONS EVEN AND UNLABORED.STABLE. IV ACCESS ON HER LEFT FOREARM G#20 DRY, INTACT AND PATENT, ALL NEEDS ATTENDED AND ANTICIPATED, KEPT DRY, CLEAN AND COMFORT. NO COMPLAIN OF PAIN. OFFLOAD HEELS AND ELBOWS AT ALL TIMES. SAFETY MEASURES IN PLACE, BED IN LOW LOCKED POSITION, CALL LIGHT WITHIN EASY REACH.WILL CONTINUE TO MONITOR ACCORDINGLY.
[2018-06-10] MEDS: ALBUTEROL FS 2.5 MG/3 ML VIAL.NEB NEB SCH (19:31)
[2018-06-10 20:00] VITALS: BP_SYST 124; BP_SYST 150; BP_DIAS 69; BP_DIAS 73
[2018-06-11] VITALS (8 sets, daily range): BP systolic 93–127; BP diastolic 53–76
[2018-06-11] MEDS: ALBUTEROL FS 2.5 MG/3 ML VIAL.NEB NEB SCH ×4 (01:30→19:32)
[2018-06-11] MEDS: IPRATROPIUM NEB FS 0.5 MG/2.5 ML AMPUL.NEB NEB SCH ×4 (01:30→19:32)
[2018-06-11] MEDS: methylPREDNISolone SOD SUCC 125 MG/2ML VIAL IV SCH ×3 (05:14→20:31)
--- NOTE | 2018-06-11 06:27 | NUR ---
RN NOTES ABLE TO REST AND SLEEP WITH LONG INTERVALS, ALL NEEDS ATTENDED AND MET, KEPT CLEAN DRY AND COMFORTABLE, NO SIGNS OF ACUTE DISTRESS NOTED, DUE MEDS GIVEN, ALL SAFETY MEASURES EMPHASIZED, ASPIRATION PRECAUTION OBSERVED, WILL ENDORSE TO AM NURSE FOR CONTINUITY OF CARE.
[2018-06-11 07:21] LABS: HEMATOCRIT 34 % (33-45); HEMOGLOBIN 11.2 g/dL (11.5-14.8); LYMPHOCYTES % (AUTO) 9.4 % (20.0-44.0); MEAN CORPUSCULAR HGB CONC 33 g/dl (31.0-36.0); MEAN CORPUSCULAR VOLUME 87 fL (82-100); MONOCYTES # (AUTO) 0.2 /CMM (0.1-1.30); MONOCYTES % (AUTO) 1.8 % (2.0-12.0); NEUTROPHILS # (AUTO) 9.4 /CMM (1.8-8.9); NEUTROPHILS % (AUTO) 88.8 % (43.0-81.0); PLATELET COUNT (AUTO) 279 /CMM (150-450); WHITE BLOOD COUNT (AUTO) 10.5 K/uL (4.3-11.0)
[2018-06-11 07:35] LABS: ALANINE AMINOTRANSFERASE 20 U/L (12-78); ALBUMIN 3.2 g/dL (3.4-5.0); ALKALINE PHOSPHATASE 81 U/L (46-116); ASPARTATE AMINOTRANSFERASE 17 U/L (15-37); BILIRUBIN,TOTAL 0.3 mg/dL (0.2-1.0); CALCIUM, SERUM 9.4 mg/dL (8.5-10.1); CARBON DIOXIDE 25 mmol/L (21-32); CHLORIDE 104 mmol/L (98-107); CREATININE 1.7 mg/dL (0.6-1.3); GLUCOSE 144 mg/dL (74-106); MAGNESIUM 1.9 mg/dL (1.8-2.4); PHOSPHORUS 4.5 mg/dL (2.5-4.9); POTASSIUM 5.1 mmol/L (3.5-5.1); SODIUM SERUM 143 mmol/L (136-145); TOTAL PROTEIN, SERUM 6.9 g/dL (6.4-8.2); UREA NITROGEN, BLOOD 45 mg/dL (7-18)
[2018-06-11] MEDS: PANTOPRAZOLE 40 MG TABLET.DR PO SCH (07:35)
[2018-06-11] MEDS: LEVOTHYROXINE SODIUM 112 MCG TABLET PO SCH (07:35)
[2018-06-11] MEDS: AMOX/CLAVULANATE 875 MG TABLET PO SCH ×2 (09:14→20:31)
[2018-06-11] MEDS: FLUTICASONE/VILANTEROL 1 EACH BLST.W.DEV IH SCH (09:14)
[2018-06-11] MEDS: DOCUSATE SODIUM 100 MG CAPSULE PO SCH ×2 (09:14→16:31)
[2018-06-11] MEDS: AMIODARONE HCL 200 MG TABLET PO SCH (09:15)
[2018-06-11] MEDS: VALSARTAN 80 MG TABLET PO SCH (09:15)
[2018-06-11] MEDS: CLOPIDOGREL BISULFATE 75 MG TABLET PO SCH (09:15)
[2018-06-11] MEDS: METOPROLOL SUCCINATE 25 MG TAB.SR.24H PO SCH (09:15)
[2018-06-11] MEDS: GABAPENTIN 300 MG CAPSULE PO SCH ×2 (09:19→16:31)
[2018-06-11] MEDS: WARFARIN SODIUM 2 MG TABLET PO SCH (16:35)
--- NOTE | 2018-06-11 18:30 | NUR ---
CLOSING PATIENT AWAKE IN BED, NO SIGNS OF ACUTE DISTRESS NOTED, RESPIRATIONS EVEN AND UNLABORED.STABLE ON ROOM AIR. IV ACCESS ON HER LEFT FOREARM G#20 DRY, INTACT AND PATENT H/L, ALL NEEDS ATTENDED AND ANTICIPATED, KEPT DRY, CLEAN AND COMFORT. NO COMPLAIN OF PAIN. OFFLOAD HEELS AND ELBOWS AT ALL TIMES. SAFETY MEASURES IN PLACE, BED IN LOW LOCKED POSITION, CALL LIGHT WITHIN EASY REACH.WILL CONTINUE TO MONITOR ACCORDINGLY.
[2018-06-11] MEDS: ACETAMINOPHEN 325 MG TABLET PO PRN (20:31)
[2018-06-11] MEDS: ATORVASTATIN 10 MG TABLET PO SCH (22:12)
[2018-06-12] MEDS: ALBUTEROL FS 2.5 MG/3 ML VIAL.NEB NEB SCH ×4 (01:30→20:30)
[2018-06-12] MEDS: IPRATROPIUM NEB FS 0.5 MG/2.5 ML AMPUL.NEB NEB SCH ×4 (01:30→20:30)
[2018-06-12 04:00] VITALS: BP 127/64
[2018-06-12] MEDS: methylPREDNISolone SOD SUCC 125 MG/2ML VIAL IV SCH ×2 (05:38→12:18)
[2018-06-12] MEDS: ACETAMINOPHEN 325 MG TABLET PO PRN ×3 (06:17→21:30)
[2018-06-12 07:06] LABS: BASOPHILS % (AUTO) 0.1 % (0.0-2.0); HEMATOCRIT 34 % (33-45); HEMOGLOBIN 11.2 g/dL (11.5-14.8); LYMPHOCYTES # (AUTO) 1.2 /CMM (0.8-4.8); LYMPHOCYTES % (AUTO) 9.6 % (20.0-44.0); MEAN CORPUSCULAR HGB CONC 34 g/dl (31.0-36.0); MEAN CORPUSCULAR VOLUME 86 fL (82-100); MONOCYTES # (AUTO) 0.3 /CMM (0.1-1.30); MONOCYTES % (AUTO) 2.5 % (2.0-12.0); NEUTROPHILS # (AUTO) 11.1 /CMM (1.8-8.9); NEUTROPHILS % (AUTO) 87.8 % (43.0-81.0); PLATELET COUNT (AUTO) 324 /CMM (150-450); RED BLOOD CELL COUNT(AUTO) 3.88 MIL/uL (4.0-5.2); WHITE BLOOD COUNT (AUTO) 12.7 K/uL (4.3-11.0)
--- NOTE | 2018-06-12 07:10 | NUR ---
RN OPENING NOTE RECEIVED PATIENT IN BED AWAKE AND ALERT. SHE ASKED TO GET HER DIAPER CHANGED. PATIENT IS CONTINENT BUT PER NOC SHIFT RN, PATIENT IS WEARING A DIAPER TO PREVENT FALLS BEC PATIENT IS UNSTABLE TO STAND UP DUE TO BILATERAL KNEE PAIN. ON ROOM AIR. NO COMPLAINS OF ANY PAIN AT THIS TIME. HAS A RIGHT HAND SALINE LOCKED. BED LOCKED AND IN LOWEST POSITION. CALL LIGHT WITHIN REACH. WILL CONTINUE TO MONITOR CLOSELY
[2018-06-12 07:16] LABS: ALANINE AMINOTRANSFERASE 16 U/L (12-78); ALBUMIN 3.1 g/dL (3.4-5.0); ALKALINE PHOSPHATASE 75 U/L (46-116); ASPARTATE AMINOTRANSFERASE 15 U/L (15-37); BILIRUBIN,TOTAL 0.3 mg/dL (0.2-1.0); CARBON DIOXIDE 26 mmol/L (21-32); CHLORIDE 105 mmol/L (98-107); CREATINE KINASE, TOTAL 81 U/L (26-192); CREATININE 1.6 mg/dL (0.6-1.3); GLUCOSE 137 mg/dL (74-106); MAGNESIUM 1.9 mg/dL (1.8-2.4); POTASSIUM 4.5 mmol/L (3.5-5.1); SODIUM SERUM 142 mmol/L (136-145); TOTAL PROTEIN, SERUM 6.7 g/dL (6.4-8.2); UREA NITROGEN, BLOOD 66 mg/dL (7-18)
[2018-06-12 08:00] VITALS: BP 142/78
[2018-06-12] MEDS: AMOX/CLAVULANATE 875 MG TABLET PO SCH ×2 (08:24→21:31)
[2018-06-12] MEDS: FLUTICASONE/VILANTEROL 1 EACH BLST.W.DEV IH SCH (08:24)
[2018-06-12] MEDS: CLOPIDOGREL BISULFATE 75 MG TABLET PO SCH (08:24)
[2018-06-12] MEDS: DOCUSATE SODIUM 100 MG CAPSULE PO SCH (08:26)
[2018-06-12] MEDS: METOPROLOL SUCCINATE 25 MG TAB.SR.24H PO SCH (08:26)
[2018-06-12] MEDS: AMIODARONE HCL 200 MG TABLET PO SCH (08:26)
[2018-06-12] MEDS: GABAPENTIN 300 MG CAPSULE PO SCH ×2 (08:26→16:05)
[2018-06-12] MEDS: LEVOTHYROXINE SODIUM 112 MCG TABLET PO SCH (08:26)
[2018-06-12] MEDS: PANTOPRAZOLE 40 MG TABLET.DR PO SCH (08:26)
[2018-06-12 09:00] VITALS: BP 142/78
[2018-06-12] MEDS: LACTOBACILLUS RHAMNOSUS GG 1 EACH CAP.SPRINK PO SCH ×2 (13:07→16:05)
--- NOTE | 2018-06-12 13:56 | NUR ---
RN NOTE PATIENT HAD 2X DIARRHEA TODAY. ASKED MD TO DC ALPHONSE. IT WAS HELD THIS AM WELL. PATIENT REQUESTED FOR TYLENOL BECAUSE OF HEADACHE. WAS GIVEN, PATIENT ASLEEP AND PAIN DECREASED.
[2018-06-12 16:00] VITALS: BP_SYST 116; BP_SYST 92; BP_DIAS 50; BP_DIAS 51
[2018-06-12] MEDS: WARFARIN SODIUM 2 MG TABLET PO SCH (16:07)
--- NOTE | 2018-06-12 18:49 | NUR ---
RN CLOSING NOTE PATIENT STABLE, AFEBRILE AND VS HAS BEEN NORMAL. ON COUMADIN AND INR WAS 1.78. PATIENT ALERT AND ORIENTED X4. HAD BILATERAL KNEE PAIN AND ASKED FOR TYLENOL. PAIN WENT AWAY. HAD 2X DIARRHEA. COLACE HAS BEEN DC'D. ALL MEDS GIVEN, ALL NEEDS ARE MET. NO COMPLAINS OF ANY PAIN AT THIS TIME. WILL ENDORSE TO NOC SHIFT RN
--- NOTE | 2018-06-12 19:20 | NUR ---
MS RN OPENING NOTES: RECEIVED PT ON ROOM AIR AND IS TOLERATING WELL. NO SOB NOTED. SO S/S OF DISTRESS. PT ON TELEPHONE AT THIS MOMENT. PT IS A/OX4. PT HAS IV ON R HAND IS PATENT AND INTACT. CURRENTLY H/L. BED ALARM ACTIVATED. BED KEPT IN LOW, LOCKED POSITION, AND SIDE RAILS X 2UP. WILL CONTINUE TO MONITOR PT.
[2018-06-12 20:00] VITALS: BP 112/60
[2018-06-12] MEDS: ATORVASTATIN 10 MG TABLET PO SCH (21:30)
--- NOTE | 2018-06-12 21:30 | NUR ---
MS RN NOTES: PT COMPLAINING OF GENERALIZED PAIN ALL OVER. PT WAS ADMINISTERED TYLENOL 650MG PO. WILL CONTINUE TO MONITOR.
--- NOTE | 2018-06-12 22:50 | NUR ---
MS RN NOTES: INFORMED DR. CURTIS THAT PT IS HAVING A COUGH. GOT ORDER FOR ROBITUSSIN DM 10ML PO Q6HR PRN.
[2018-06-13] MEDS: IPRATROPIUM NEB FS 0.5 MG/2.5 ML AMPUL.NEB NEB SCH ×4 (01:30→19:59)
[2018-06-13] MEDS: ALBUTEROL FS 2.5 MG/3 ML VIAL.NEB NEB SCH ×4 (01:30→19:58)
[2018-06-13 04:00] VITALS: BP 132/77
[2018-06-13 04:44] VITALS: BP 132/77
[2018-06-13 06:36] LABS: BASOPHILS % (AUTO) 0.2 % (0.0-2.0); HEMATOCRIT 34 % (33-45); HEMOGLOBIN 11.3 g/dL (11.5-14.8); LYMPHOCYTES # (AUTO) 1.4 /CMM (0.8-4.8); LYMPHOCYTES % (AUTO) 11.5 % (20.0-44.0); MEAN CORPUSCULAR HGB CONC 33 g/dl (31.0-36.0); MEAN CORPUSCULAR VOLUME 87 fL (82-100); MONOCYTES # (AUTO) 0.6 /CMM (0.1-1.30); NEUTROPHILS % (AUTO) 83.3 % (43.0-81.0); PLATELET COUNT (AUTO) 330 /CMM (150-450); RED BLOOD CELL COUNT(AUTO) 3.92 MIL/uL (4.0-5.2)
--- NOTE | 2018-06-13 06:47 | NUR ---
MS RN CLOSING NOTES: PT RESTING IN BED COMFORTABLY AND HUMMING. NO SOB NOTED. NO S/S OF DISTRESS. PT IS A/OX1. PT TURNED AND REPOSITIONED Q2HRS. PT ON ROOM AIR AND TOLERATING WELL. PT CONNECTED ON PULSE OX. HOB AT 40 DEGREES AT ALL TIMES ORDERED. PT HAS TODD CATH AND IS ATTACHED TO DRAINAGE BAG WITH YELLOW URINE DRAINING. OUTPUT WAS 200ML. WOUND TX PERFORMED ORDERED. PT HAS IV ON L FOREARM #20G AND IS PATENT AND INTACT. HAS BEEN FLUSHED. CURRENTLY H/L. BED KEPT IN LOW, LOCKED POSITION, AND SIDE RAILS X 2 UP. BED ALARM ACTIVATED. WILL ENDORSE TO AM NURSE FOR PATSY. Addendum: 06/13/18 at 0651 by KRISTOPHER EMLENDEZ RN IGNORE ; WRONG CHARTING FOR WRONG PATIENT
--- NOTE | 2018-06-13 06:53 | NUR ---
MS RN CLOSING NOTES: ALL NEEDS WERE ATTENDED AND ANTICIPATED FOR. PT ON ROOM AIR AND TOLERATING WELL. PT ASLEEP AT THIS TIME. NO SOB NOTED. NO S/S OF DISTRESS. IV REMAINS INTACT. CURRENTLY H/L. BED ALARM ACTIVATED. BED KEPT IN LOW, LOCKED POSITION, AND SIDE RAILS X 2UP. WILL ENDORSE TO AM NURSE FOR PATSY.
[2018-06-13 06:56] LABS: CALCIUM, SERUM 8.8 mg/dL (8.5-10.1); CARBON DIOXIDE 25 mmol/L (21-32); CHLORIDE 105 mmol/L (98-107); CREATININE 1.9 mg/dL (0.6-1.3); GLUCOSE 117 mg/dL (74-106); MAGNESIUM 1.9 mg/dL (1.8-2.4); PHOSPHORUS 4.4 mg/dL (2.5-4.9); POTASSIUM 4.3 mmol/L (3.5-5.1); SODIUM SERUM 142 mmol/L (136-145); UREA NITROGEN, BLOOD 73 mg/dL (7-18)
--- NOTE | 2018-06-13 07:30 | NUR ---
m/s terrazzo grinder: initial assessment received pt in bed awake, a/ox4. no c/o pain or any discomfort at this time. noted iv to right hand/wrist infiltrated, iv removed with tip intact. instructed to call for assistance. will continue to monitor.
[2018-06-13 08:00] VITALS: BP 107/49
[2018-06-13] MEDS: AMIODARONE HCL 200 MG TABLET PO SCH (08:20)
--- NOTE | 2018-06-13 08:20 | NUR ---
m/s percussion welding machine operator: notes dr. leiva notified re: protime 49.9 and inr 5.11 results with order to hold coumadin and will monitor inr. orders read back and carried out. will continue to monitor. pt aware.
[2018-06-13] MEDS: METOPROLOL SUCCINATE 25 MG TAB.SR.24H PO SCH (08:21)
[2018-06-13] MEDS: WARFARIN SODIUM 2 MG TABLET PO SCH (08:23)
[2018-06-13] MEDS: predniSONE 20 MG TABLET PO SCH (08:39)
[2018-06-13] MEDS: CLOPIDOGREL BISULFATE 75 MG TABLET PO SCH (08:39)
[2018-06-13] MEDS: GABAPENTIN 300 MG CAPSULE PO SCH ×2 (08:39→16:51)
[2018-06-13] MEDS: FLUTICASONE/VILANTEROL 1 EACH BLST.W.DEV IH SCH (08:39)
[2018-06-13] MEDS: LEVOTHYROXINE SODIUM 112 MCG TABLET PO SCH (08:39)
[2018-06-13] MEDS: LACTOBACILLUS RHAMNOSUS GG 1 EACH CAP.SPRINK PO SCH ×2 (08:39→16:51)
[2018-06-13] MEDS: PANTOPRAZOLE 40 MG TABLET.DR PO SCH (08:40)
[2018-06-13] MEDS: AMOX/CLAVULANATE 875 MG TABLET PO SCH ×2 (08:40→21:59)
[2018-06-13] MEDS: GUAIFENESIN/D-METHORPHAN HB 5 ML UDC PO PRN ×2 (08:49→21:59)
--- NOTE | 2018-06-13 10:00 | NUR ---
m/s cone examiner: pulmo f/u seen and examined by dr. mireles at this time.
--- NOTE | 2018-06-13 11:30 | NUR ---
m/s order administrator: md visit seen and examined by dr. leiva at this time. plan of care updated to pt by md.
--- NOTE | 2018-06-13 13:00 | NUR ---
m/s mail messenger: nephro f/u seen by dr. davila at this time.
[2018-06-13] MEDS ORDERED: IV NS 0.9% 1,000 ML IV PRN (13:01)
[2018-06-13 14:11] LABS: *SPE A/G RATIO 1.1 (0.7-1.7); *SPE ALBUMIN 3.2 g/dL (2.9-4.4); *SPE ALPHA-1-GLOBULIN 0.3 g/dL (0.0-0.4); *SPE ALPHA-2-GLOBULIN 0.9 g/dL (0.4-1.0); *SPE BETA GLOBULIN 0.9 g/dL (0.7-1.3); *SPE GLOBULIN, TOTAL 2.8 g/dL (2.2-3.9); *SPE M-SPIKE Not Observed g/dL (Not Observed); *SPEGAMMA GLOBULIN 0.6 g/dL (0.4-1.8)
--- NOTE | 2018-06-13 14:30 | NUR ---
m/s supervisor electric: notes resting comfortable in bed with no distress noted. will monitor.
[2018-06-13 16:00] VITALS: BP 144/65
--- NOTE | 2018-06-13 16:00 | NUR ---
m/s financial project manager: notes sisters visiting at this time. instructed to call for assistance. will monitor.
--- NOTE | 2018-06-13 18:15 | NUR ---
m/s inspector machined parts: notes in bed resting comfortable. sisters remains at bedside. needs attended. no apparent distress noted. will continue to monitor.
--- NOTE | 2018-06-13 20:00 | NUR ---
RN OPENING NOTES: RECEIVED PT ON ROOM AIR AND IS TOLERATING WELL. NO SOB, NO PAIN AT THIS TIME. NO S/S OF DISTRESS. PT IS A/OX4. PT HAS IV ON LEFT FOREARM IS PATENT AND INTACT WITH IV FLUIDS ORDERED. BED ALARM ACTIVATED. BED KEPT IN LOW, LOCKED POSITION, AND SIDE RAILS X 2UP. WILL CONTINUE TO MONITOR PT.
[2018-06-13 21:34] VITALS: BP 124/58
[2018-06-13] MEDS: ATORVASTATIN 10 MG TABLET PO SCH (21:59)
[2018-06-14] MEDS: ALBUTEROL FS 2.5 MG/3 ML VIAL.NEB NEB SCH ×4 (01:30→20:25)
[2018-06-14] MEDS: IPRATROPIUM NEB FS 0.5 MG/2.5 ML AMPUL.NEB NEB SCH ×4 (01:30→20:25)
[2018-06-14 04:00] VITALS: BP 137/74
[2018-06-14 07:31] LABS: BASOPHILS % (AUTO) 0.2 % (0.0-2.0); EOSINOPHILS % (AUTO) 0.1 % (0.0-6.0); HEMATOCRIT 34 % (33-45); HEMOGLOBIN 11.3 g/dL (11.5-14.8); LYMPHOCYTES # (AUTO) 1.9 /CMM (0.8-4.8); LYMPHOCYTES % (AUTO) 18.4 % (20.0-44.0); MEAN CORPUSCULAR HGB CONC 34 g/dl (31.0-36.0); MEAN CORPUSCULAR VOLUME 87 fL (82-100); MONOCYTES # (AUTO) 1.1 /CMM (0.1-1.30); MONOCYTES % (AUTO) 10.8 % (2.0-12.0); NEUTROPHILS # (AUTO) 7.2 /CMM (1.8-8.9); NEUTROPHILS % (AUTO) 70.5 % (43.0-81.0); PLATELET COUNT (AUTO) 328 /CMM (150-450); RED BLOOD CELL COUNT(AUTO) 3.88 MIL/uL (4.0-5.2); WHITE BLOOD COUNT (AUTO) 10.3 K/uL (4.3-11.0)
--- NOTE | 2018-06-14 07:50 | NUR ---
MS RN OPENING NOTE RECEIVED PATIENT IN BED. ALERT ORIENTED X3. SLIGHTLY FORGETFUL. ON ROOM AIR, TOLERATING WELL. IN NO APPARENT DISTRESS OR DISCOMFORT AT THIS TIME. RESPIRATIONS EVEN AND UNLABORED. DENIES PAIN AND SOB. ABLE TO COMMUNICATE NEEDS. USES DIAPER FOR ELIMINATION. LEFT FA 22G IVC, SL, PATENT AND INTACT. PATIENT KEPT CLEAN AND COMFORTABLE. SAFETY MEASURES IN PLACE, BED IN LOW LOCKED POSITION, SIDE RAILS UP X2, CALL LIGHT WITHIN EASY REACH. WILL CONTINUE TO MONITOR.
[2018-06-14 08:00] VITALS: BP 141/76
[2018-06-14 08:04] LABS: CALCIUM, SERUM 8.2 mg/dL (8.5-10.1); CARBON DIOXIDE 24 mmol/L (21-32); CHLORIDE 105 mmol/L (98-107); CREATININE 1.3 mg/dL (0.6-1.3); GLUCOSE 89 mg/dL (74-106); MAGNESIUM 2.1 mg/dL (1.8-2.4); PHOSPHORUS 3.5 mg/dL (2.5-4.9); POTASSIUM 4.3 mmol/L (3.5-5.1); SODIUM SERUM 140 mmol/L (136-145); UREA NITROGEN, BLOOD 64 mg/dL (7-18)
--- NOTE | 2018-06-14 08:50 | NUR ---
RECEIVED CRITICAL LAB REPORT FOR INR OF 12.49. REPORTED TO MELYSSA REYES BLOWER OPERATOR. NO NEW ORDERS AT THIS TIME. PATIENT IS ON PLAVIX. TRIED TO CLARIFY WITH AMY IF THE MEDICATION IS OK TO ADMINISTER WITH THE PATIENT BEING AT RISK FOR BLEEDING. WAS TOLD HE WILL LOOK INTO THE CASE AND NOTIFY ME. HELP PLAVIX AT THIS TIME. WILL CONTINUE TO MONITOR AND CARRY OUT ORDERS.
[2018-06-14 08:53] LABS: BAND % (MANUAL) 2 % (0.0-5.0); LYMPHOCYTES % (MANUAL) 20 % (16-48); MONOCYTES % (MANUAL) 10 % (0-11.0); NEUTROPHILS % (MANUAL) 68 (42-76)
[2018-06-14] MEDS: CLOPIDOGREL BISULFATE 75 MG TABLET PO SCH (09:00)
[2018-06-14] MEDS: AMOX/CLAVULANATE 875 MG TABLET PO SCH ×2 (09:37→21:18)
[2018-06-14] MEDS: GABAPENTIN 300 MG CAPSULE PO SCH ×2 (09:43→17:24)
[2018-06-14] MEDS: METOPROLOL SUCCINATE 25 MG TAB.SR.24H PO SCH (09:46)
[2018-06-14] MEDS: FLUTICASONE/VILANTEROL 1 EACH BLST.W.DEV IH SCH (09:47)
[2018-06-14] MEDS: AMIODARONE HCL 200 MG TABLET PO SCH (09:47)
[2018-06-14] MEDS: predniSONE 20 MG TABLET PO SCH (09:47)
[2018-06-14] MEDS: LACTOBACILLUS RHAMNOSUS GG 1 EACH CAP.SPRINK PO SCH ×2 (09:47→17:24)
[2018-06-14] MEDS: PANTOPRAZOLE 40 MG TABLET.DR PO SCH (09:50)
[2018-06-14] MEDS: LEVOTHYROXINE SODIUM 112 MCG TABLET PO SCH (09:50)
--- NOTE | 2018-06-14 10:00 | NUR ---
VERIFIED WITH DR. MARIN IF OK TO GIVE PLAVIX PATIENT'S INR IS ELEVATED. PER DR. MARIN MEDICATION HAS DIFFERENT PURPOSE THEREFORE HAS TO BE ADMINISTERED. NOTED AND CARRIED OUT.
[2018-06-14] MEDS ORDERED: PHYTONADIONE IV ONE (12:30)
[2018-06-14] MEDS ORDERED: D5W IV ONE (12:30)
[2018-06-14 15:09] LABS: PTH, INTACT 69 pg/mL (15-65)
[2018-06-14] MEDS: ACETAMINOPHEN 325 MG TABLET PO PRN ×2 (15:28→21:18)
[2018-06-14 16:00] VITALS: BP 124/51
--- NOTE | 2018-06-14 19:20 | NUR ---
RN M/S NOTE PATIENT IS RESTING WITH HOB ELEVATED, AOX4, SPEECH CLEAR, NO S/SX OF CARDIAC OR RESPIRATORY DISTRESS, DENIES PAIN, ON ROOM AIR, LFA #22G SL, PATENT FLUSHING WELL, SITE IS CLEAN AND DRY, SAFETY MAINTAINED AT ALL TIMES, BED IN LOW LOCKED POSITION CALL LIGHT WITHIN REACH WILL CONTINUE TO MONITOR FOR ANY CHANGES IN CONDITION.
--- NOTE | 2018-06-14 19:57 | NUR ---
MS RN CLOSING NOTE PATIENT IN BED. ALERT ORIENTED X3. ON ROOM AIR, TOLERATING WELL. IN NO APPARENT DISTRESS OR DISCOMFORT AT THIS TIME. RESPIRATIONS EVEN AND UNLABORED. DENIES PAIN AND SOB. ABLE TO COMMUNICATE NEEDS. USES DIAPER FOR ELIMINATION. LEFT FA 22G IVC, SL, PATENT AND INTACT. PATIENT KEPT CLEAN AND COMFORTABLE. ALL NEEDS ATTENDED, ORDERS RENDERED. NO SIGNS OF BLEEDING OBSERVED THROUGHOUT THE DAY. SAFETY MEASURES IN PLACE, BED IN LOW LOCKED POSITION, SIDE RAILS UP X2, CALL LIGHT WITHIN EASY REACH. WILL ENDORSE TO PM NURSE FOR PATSY.
[2018-06-14 20:00] VITALS: BP 132/66
[2018-06-14] MEDS: ATORVASTATIN 10 MG TABLET PO SCH (21:18)
[2018-06-15] MEDS: ALBUTEROL FS 2.5 MG/3 ML VIAL.NEB NEB SCH ×3 (00:32→13:40)
[2018-06-15] MEDS: IPRATROPIUM NEB FS 0.5 MG/2.5 ML AMPUL.NEB NEB SCH ×4 (00:32→19:40)
[2018-06-15 04:00] VITALS: BP 141/65
[2018-06-15 07:33] LABS: BASOPHILS % (AUTO) 0.1 % (0.0-2.0); EOSINOPHILS % (AUTO) 0.1 % (0.0-6.0); HEMATOCRIT 34 % (33-45); HEMOGLOBIN 11.1 g/dL (11.5-14.8); LYMPHOCYTES % (AUTO) 19.3 % (20.0-44.0); MEAN CORPUSCULAR HGB CONC 33 g/dl (31.0-36.0); MEAN CORPUSCULAR VOLUME 87 fL (82-100); MONOCYTES # (AUTO) 0.9 /CMM (0.1-1.30); MONOCYTES % (AUTO) 8.6 % (2.0-12.0); NEUTROPHILS # (AUTO) 7.5 /CMM (1.8-8.9); NEUTROPHILS % (AUTO) 71.9 % (43.0-81.0); PLATELET COUNT (AUTO) 326 /CMM (150-450); RED BLOOD CELL COUNT(AUTO) 3.86 MIL/uL (4.0-5.2); WHITE BLOOD COUNT (AUTO) 10.5 K/uL (4.3-11.0)
[2018-06-15 07:40] LABS: CALCIUM, SERUM 8.4 mg/dL (8.5-10.1); CARBON DIOXIDE 26 mmol/L (21-32); CHLORIDE 105 mmol/L (98-107); CREATININE 1.2 mg/dL (0.6-1.3); GLUCOSE 94 mg/dL (74-106); POTASSIUM 4.6 mmol/L (3.5-5.1); SODIUM SERUM 139 mmol/L (136-145); UREA NITROGEN, BLOOD 58 mg/dL (7-18)
[2018-06-15 08:00] VITALS: BP 131/67
[2018-06-15] MEDS: FLUTICASONE/VILANTEROL 1 EACH BLST.W.DEV IH SCH (08:53)
[2018-06-15] MEDS: PANTOPRAZOLE 40 MG TABLET.DR PO SCH (08:54)
[2018-06-15] MEDS: CLOPIDOGREL BISULFATE 75 MG TABLET PO SCH (08:57)
[2018-06-15] MEDS: LEVOTHYROXINE SODIUM 112 MCG TABLET PO SCH (08:57)
[2018-06-15] MEDS: GABAPENTIN 300 MG CAPSULE PO SCH ×2 (08:57→18:03)
[2018-06-15] MEDS: predniSONE 20 MG TABLET PO SCH (08:57)
[2018-06-15] MEDS: LACTOBACILLUS RHAMNOSUS GG 1 EACH CAP.SPRINK PO SCH ×2 (08:57→18:03)
[2018-06-15] MEDS: AMIODARONE HCL 200 MG TABLET PO SCH (08:58)
[2018-06-15] MEDS: METOPROLOL SUCCINATE 25 MG TAB.SR.24H PO SCH (08:59)
[2018-06-15] MEDS: AMOX/CLAVULANATE 875 MG TABLET PO SCH ×2 (09:02→21:17)
[2018-06-15] MEDS: TRAMADOL HCL 50 MG TABLET PO PRN (09:10)
[2018-06-15] MEDS: ENOXAPARIN SODIUM 80 MG/0.8 ML DISP.SYRIN SQ SCH ×2 (15:29→21:00)
[2018-06-15 16:00] VITALS: BP 116/65
[2018-06-15] MEDS ORDERED: WARFARIN SODIUM 1 MG TABLET PO SCH (17:00)
[2018-06-15] MEDS ORDERED: ONCOUMADIN PO (18:34)
[2018-06-15] MEDS ORDERED: PRED20TA PO (18:34)
[2018-06-15] MEDS ORDERED: Amox/Clavulanate PO (18:34)
--- NOTE | 2018-06-15 19:10 | NUR ---
MS RN CLOSING NOTE PATIENT IN BED. ALERT ORIENTED X3. ON ROOM AIR, TOLERATING WELL. IN NO APPARENT DISTRESS OR DISCOMFORT AT THIS TIME. RESPIRATIONS EVEN AND UNLABORED. DENIES PAIN AND SOB. ABLE TO COMMUNICATE NEEDS. USES DIAPER FOR ELIMINATION. LEFT FA 22G IVC, SL, PATENT AND INTACT. PATIENT KEPT CLEAN AND COMFORTABLE. ALL NEEDS ATTENDED, ORDERS RENDERED. NO SIGNS OF BLEEDING OBSERVED THROUGHOUT THE DAY. ALL MD ORDERS ATTENDED. SAFETY MEASURES IN PLACE, BED IN LOW LOCKED POSITION, SIDE RAILS UP X2, CALL LIGHT WITHIN EASY REACH. ENDORSED TO PM NURSE FOR PATSY.
[2018-06-15] MEDS ORDERED: ALBUTEROL HALF STRENGTH 1.25 MG/3 ML VIAL.NEB NEB SCH (19:30)
--- NOTE | 2018-06-15 19:30 | NUR ---
MS/RN OPENING NOTES PT RECEIVED AWAKE, RESTING COMFORTABLY IN BED. A/OX3. ON ROOM AIR, BREATHING EVEN AND UNLABORED. DENIES SOB AND PAIN AT THIS TIME. IV TO LFA PATENT AND INTACT. PT TO BE DISCHARGED TONIGHT TO [facility]. PT AWARE AND STATES HER SISTER CARRILLO IS ALSO AWARE. WILL FOLLOW UP WITH AMBULANCE ETA. BED IN LOW/LOCKED POSITION WITH CALL LIGHT IN REACH, BILATERAL UPPER SIDE RAILS IN PLACE AND HOB ELEVATED. WILL CONTINUE TO MONITOR
[2018-06-15 20:00] VITALS: BP 123/64
--- NOTE | 2018-06-15 20:39 | NUR ---
MS PATTI OPENING NOTE PATIENT IS RESTING WITH HOB ELEVATED, AOX4, SPEECH CLEAR, NO S/SX OF CARDIAC OR RESPIRATORY DISTRESS, DENIES PAIN, ON ROOM AIR, LFA #22G SL, PATENT FLUSHING WELL, SITE IS CLEAN AND DRY, SAFETY PRECAUTIONS IN PLACE, BED IN LOW LOCKED POSITION, CALL LIGHT WITHIN REACH WILL CONTINUE TO MONITOR FOR ANY CHANGES IN CONDITION. Addendum: 06/15/18 at 2039 by MARK ANTHONY XIONG RN TIME CLARIFICATION 0720
--- NOTE | 2018-06-15 20:58 | NUR ---
MS/RN NOTES DISCHARGE PAPERWORK IN ADDITION TO BELONGINGS LIST REVIEWED WITH THE PT. PT SIGNED ALL FORMS. NO QUESTIONS/CONCERNS EXPRESSED BY PT. COPIES MADE AND PLACED IN THE CHART. AMBULANCE ETA PICKUP [phone]
[2018-06-15] MEDS: ATORVASTATIN 10 MG TABLET PO SCH (21:17)
--- NOTE | 2018-06-15 21:41 | NUR ---
MS/RN NOTES REPORT GIVEN TO NURSE MONET PT IS GOING TO [facility], ROOM 44A
--- NOTE | 2018-06-15 21:43 | NUR ---
MS/RN NOTES PT RECEIVED LOVENOX 6 HOURS AGO AT APPROX 1530. ORDER FOR Q12H. TOO SOON TO GIVE 2100 DOSE. PT [facility]. ENDORSED TO NURSE MONET
--- NOTE | 2018-06-15 23:18 | NUR ---
DISCHARGE NOTES PT DISCHARGED IN STABLE CONDITION VIA GURNEY WITH [facility]. ALL BELONGINGS AND DISCHARGE PAPERWORK SENT WITH PT. IV REMOVED.
== END 2018-06-15 23:15 | DRG 194 ==
LOC: ER 19:20 → TELE1 22:37 → MEDSG1 06-10 14:00
PROVIDERS: ADMIT Internal Medicine; ATTEND Hospitalist
DX: I13.0 Hypertensive heart and chronic kidney disease with heart failure and stage 1 through stage 4 chronic kidney disease, or unspecified chronic kidney disease (principal); N17.0 Acute kidney failure with tubular necrosis; I21.A1 Myocardial infarction type 2; I50.33 Acute on chronic diastolic (congestive) heart failure; E03.9 Hypothyroidism, unspecified; E78.5 Hyperlipidemia, unspecified; K21.9 Gastro-esophageal reflux disease without esophagitis; I25.10 Atherosclerotic heart disease of native coronary artery without angina pectoris; N18.9 Chronic kidney disease, unspecified; Z86.73 Personal history of transient ischemic attack (TIA), and cerebral infarction without residual deficits; Z87.891 Personal history of nicotine dependence; M19.90 Unspecified osteoarthritis, unspecified site; I27.20 Pulmonary hypertension, unspecified; I25.2 Old myocardial infarction; I48.0 Paroxysmal atrial fibrillation; Z79.01 Long term (current) use of anticoagulants; J20.8 Acute bronchitis due to other specified organisms; J44.9 Chronic obstructive pulmonary disease, unspecified; E66.9 Obesity, unspecified; Z68.29 Body mass index [BMI] 29.0-29.9, adult; I08.0 Rheumatic disorders of both mitral and aortic valves; R79.1 Abnormal coagulation profile; G89.29 Other chronic pain
CPT/HCPCS: 36415; 70220-TC; 71045-TC; 76770-TC; 80048-TC; 80053-TC; 80061-TC; 82550-TC; 83540-TC; 83735-TC; 83880; 83970; 84100-TC; 84155; 84165; 84443-TC; 84484-TC; 85025-TC; 85610-TC; 85730-TC; 87081-TC; 93307-TC; 94799-TC; 97110-TC; 97116-TC; 97530-TC; G0378; J1650; J1940; J2930; J3430; J7030; J7050; J7060

== ENCOUNTER 2019-03-12 09:50 | Emergency (ER) | payer MEDICARE, OTHER ==
[~2019-03-12] VITALS: Ht 165.1 cm; Wt 68.0 kg
[~2019-03-12 09:50] MED LIST changes: +Amox/Clavulanate PO; -METO-356 PO; +METO25TA4 PO; +OMEP40CA13 PO; -OMEP40CA37 PO; +PRED20TA PO
--- NOTE | 2019-03-12 10:10 | NUR ---
LEFT KNEE PAIN AND SWELLING. DENIES ANY INJURY. PATIENT A/OX4, BREATHING EVEN AND UNLABORED, NO SOB NOTED, NO DISTRESS NOTED. FAMILY AT BEDSIDE.
[2019-03-12] MEDS ORDERED: oxyCODONE/APAP (5/325 MG) 1 UDTAB TABLET ONE ×2 (10:27→14:49)
[2019-03-12] MEDS ORDERED: oxyCODONE/APAP (5/325 MG) 1 UDTAB TABLET PO ONE ×2 (10:30→15:00)
--- NOTE | 2019-03-12 10:53 | NUR ---
AIR CARRIER OPERATIONS INSPECTOR AT BEDSIDE
--- NOTE | 2019-03-12 11:29 | NUR ---
DR. SMITH AT BEDSIDE FOR KNEE ASPIRATION
--- NOTE | 2019-03-12 13:00 | NUR ---
[facility] ETA 1230 TRIP#[id number]
--- NOTE | 2019-03-12 13:09 | NUR ---
UPDATED ETA [id number]
--- NOTE | 2019-03-12 15:09 | NUR ---
REPORT GIVEN TO EMT. INFORMED SON PER PATIENT'S REQUEST RE: DISCHARGE INSTRUCTIONS. PATIENT IN STABLE CONDITION. Patient discharged to home in stable condition. Written and verbal after care instructions given. Patient verbalizes understanding of instruction.
[2019-03-12 15:10] VITALS: BP 124/74
== END 2019-03-12 15:10 | disposition home or self-care (01) ==
LOC: ER 09:51
DX: M25.462 Effusion, left knee (principal); I10 Essential (primary) hypertension; K21.9 Gastro-esophageal reflux disease without esophagitis; Z79.01 Long term (current) use of anticoagulants; Z79.899 Other long term (current) drug therapy; Z86.73 Personal history of transient ischemic attack (TIA), and cerebral infarction without residual deficits
CPT/HCPCS: 73564-TC

== ENCOUNTER 2019-03-13 07:08 | Inpatient (IN) | payer MEDICARE, MEDICAID ==
[~2019-03-13] VITALS: Ht 157.5 cm; Wt 79.4 kg
[2019-03-13 07:51] LABS: BASOPHILS % (AUTO) 0.5 % (0.0-2.0); EOSINOPHILS % (AUTO) 2.8 % (0.0-6.0); HEMATOCRIT 36 % (33-45); HEMOGLOBIN 11.2 g/dL (11.5-14.8); MEAN CORPUSCULAR HGB CONC 32 g/dl (31.0-36.0); MEAN CORPUSCULAR VOLUME 83 fL (82-100); MONOCYTES # (AUTO) 0.4 /CMM (0.1-1.30); MONOCYTES % (AUTO) 7.8 % (2.0-12.0); NEUTROPHILS # (AUTO) 3.1 /CMM (1.8-8.9); NEUTROPHILS % (AUTO) 67.9 % (43.0-81.0); PLATELET COUNT (AUTO) 190 /CMM (150-450); RED BLOOD CELL COUNT(AUTO) 4.26 MIL/uL (4.0-5.2); WHITE BLOOD COUNT (AUTO) 4.5 K/uL (4.3-11.0)
[2019-03-13 08:05] LABS: CREATININE 1.2 mg/dL (0.6-1.3)
[2019-03-13 09:45] VITALS: BP 158/70
[2019-03-13] MEDS ORDERED: MAGNESIUM HYDROXIDE 30 ML UDC PO PRN (10:00)
[2019-03-13] MEDS ORDERED: ZOLPIDEM TARTRATE 5 MG TABLET PO PRN (10:00)
[2019-03-13] MEDS ORDERED: ONDANSETRON HCL/PF 4 MG/2 ML VIAL IVP PRN (10:00)
[2019-03-13] MEDS ORDERED: MAG HYDROX/AL HYDROX/SIMETH 30 ML UDC PO PRN (10:00)
[2019-03-13] MEDS ORDERED: Z GUARD REMEDY 2 OZ OINT TP PRN (10:00)
[2019-03-13] MEDS ORDERED: TRAMADOL HCL 50 MG TABLET PO PRN (10:00)
[2019-03-13] MEDS: MORPHINE SULFATE INJ 2 MG/ML DISP.SYRIN IV PRN ×2 (10:40→20:06)
[2019-03-13 16:00] VITALS: BP 131/70
[2019-03-13] MEDS: HYDROCODONE/APAP 5/325MG 1 EACH TABLET PO PRN (16:14)
[2019-03-13] MEDS: GABAPENTIN 300 MG CAPSULE PO SCH (16:14)
[2019-03-13] MEDS ORDERED: Medication Not On Formulary EA (Icosapent Ethyl (Vascepa) 1 GM) PO SCH (17:00)
[2019-03-13] MEDS: ACETAMINOPHEN 325 MG TABLET PO PRN (18:42)
[2019-03-13 20:00] VITALS: BP 126/64
[2019-03-14] MEDS: MORPHINE SULFATE INJ 2 MG/ML DISP.SYRIN IV PRN (06:04)
[2019-03-14 07:10] LABS: BASOPHILS % (AUTO) 0.3 % (0.0-2.0); EOSINOPHILS % (AUTO) 2.3 % (0.0-6.0); HEMATOCRIT 33 % (33-45); HEMOGLOBIN 10.9 g/dL (11.5-14.8); LYMPHOCYTES # (AUTO) 1.2 /CMM (0.8-4.8); LYMPHOCYTES % (AUTO) 22.2 % (20.0-44.0); MEAN CORPUSCULAR HGB CONC 33 g/dl (31.0-36.0); MEAN CORPUSCULAR VOLUME 82 fL (82-100); MONOCYTES # (AUTO) 0.6 /CMM (0.1-1.30); NEUTROPHILS # (AUTO) 3.5 /CMM (1.8-8.9); NEUTROPHILS % (AUTO) 64.2 % (43.0-81.0); PLATELET COUNT (AUTO) 183 /CMM (150-450); RED BLOOD CELL COUNT(AUTO) 4.01 MIL/uL (4.0-5.2); WHITE BLOOD COUNT (AUTO) 5.4 K/uL (4.3-11.0)
[2019-03-14 07:33] LABS: THYROID STIMULATING HORMONE 0.754 uIU/mL (0.358-3.74)
[2019-03-14 07:35] LABS: ALBUMIN 3.1 g/dL (3.4-5.0); BILIRUBIN,TOTAL 0.5 mg/dL (0.2-1.0); CALCIUM, SERUM 8.8 mg/dL (8.5-10.1); CREATININE 1.1 mg/dL (0.6-1.3); MAGNESIUM 1.6 mg/dL (1.8-2.4); PHOSPHORUS 4.2 mg/dL (2.5-4.9); POTASSIUM 3.8 mmol/L (3.5-5.1); TOTAL PROTEIN, SERUM 6.3 g/dL (6.4-8.2)
[2019-03-14 08:00] VITALS: BP 139/66
[2019-03-14] MEDS: PANTOPRAZOLE 40 MG TABLET.DR PO SCH (08:29)
[2019-03-14] MEDS: MULTIPLE VIT (LYCOPENE/FA/MV,CA,IRON,MIN/LUT)1 TAB PO SCH (08:29)
[2019-03-14] MEDS: GABAPENTIN 300 MG CAPSULE PO SCH ×2 (08:29→16:36)
[2019-03-14] MEDS: AMIODARONE HCL 200 MG TABLET PO SCH (08:30)
[2019-03-14] MEDS: METOPROLOL SUCCINATE 25 MG TAB.SR.24H PO SCH (08:30)
[2019-03-14] MEDS: CLOPIDOGREL BISULFATE 75 MG TABLET PO SCH (08:30)
[2019-03-14] MEDS: LEVOTHYROXINE SODIUM 112 MCG TABLET PO SCH (08:31)
[2019-03-14] MEDS: VALSARTAN 80 MG TABLET PO SCH (08:31)
[2019-03-14] MEDS: Magnesium 1GM/D5W 100ML PREMIX 100 ML IV SCH ×2 (09:51→11:06)
[2019-03-14] MEDS: HYDROCODONE/APAP 5/325MG 1 EACH TABLET PO PRN ×2 (13:42→22:03)
[2019-03-14 16:00] VITALS: BP 136/77
[2019-03-14 20:00] VITALS: BP 101/33
[2019-03-14] MEDS: ACETAMINOPHEN 325 MG TABLET PO PRN (20:03)
[2019-03-14 21:22] VITALS: BP 101/33
[2019-03-14 21:43] VITALS: BP 121/56
[2019-03-14] MEDS ORDERED: ATORVASTATIN 10 MG TABLET PO SCH (22:00)
[2019-03-15 07:00] VITALS: BP 115/56
[2019-03-15] MEDS: METOPROLOL SUCCINATE 25 MG TAB.SR.24H PO SCH (09:00)
[2019-03-15] MEDS: VALSARTAN 80 MG TABLET PO SCH (09:00)
[2019-03-15] MEDS: GABAPENTIN 300 MG CAPSULE PO SCH (09:09)
[2019-03-15] MEDS: MULTIPLE VIT (LYCOPENE/FA/MV,CA,IRON,MIN/LUT)1 TAB PO SCH (09:09)
[2019-03-15] MEDS: CLOPIDOGREL BISULFATE 75 MG TABLET PO SCH (09:09)
[2019-03-15] MEDS: AMIODARONE HCL 200 MG TABLET PO SCH (09:10)
[2019-03-15] MEDS: LEVOTHYROXINE SODIUM 112 MCG TABLET PO SCH (09:12)
[2019-03-15] MEDS: PANTOPRAZOLE 40 MG TABLET.DR PO SCH (09:12)
[2019-03-15] MEDS: HYDROCODONE/APAP 5/325MG 1 EACH TABLET PO PRN (09:20)
[2019-03-15 15:39] VITALS: BP 115/56
== END 2019-03-15 18:10 | DRG 554 ==
LOC: ER 07:15 → MEDSG2 09:11
PROVIDERS: ADMIT Nurse Practitioner Acute Care; ATTEND Nurse Practitioner Acute Care
DX: M17.12 Unilateral primary osteoarthritis, left knee (principal); I48.0 Paroxysmal atrial fibrillation; D64.9 Anemia, unspecified; E03.9 Hypothyroidism, unspecified; E66.9 Obesity, unspecified; I25.10 Atherosclerotic heart disease of native coronary artery without angina pectoris; Z86.73 Personal history of transient ischemic attack (TIA), and cerebral infarction without residual deficits; I10 Essential (primary) hypertension; E78.5 Hyperlipidemia, unspecified; Z68.32 Body mass index [BMI] 32.0-32.9, adult; R53.1 Weakness; M25.762 Osteophyte, left knee; Z79.02 Long term (current) use of antithrombotics/antiplatelets
CPT/HCPCS: 36415; 71045-TC; 80048-TC; 80053-TC; 80061-TC; 83735-TC; 84100-TC; 84443-TC; 84484-TC; 85025-TC; 87081-TC; 97112-TC; 97530-TC; G0378; J2270; J3475

== ENCOUNTER 2019-05-15 09:21 | Inpatient (IN) | payer MEDICARE, MEDICAID ==
[~2019-05-15] VITALS: Ht 157.5 cm; Wt 77.6 kg
[~2019-05-15 09:21] MED LIST changes: -Amox/Clavulanate PO; -ONCOUMADIN PO
[2019-05-15] MEDS ORDERED: ACETAMINOPHEN ES 500 MG TABLET PO ONE (09:30)
[2019-05-15] MEDS ORDERED: LOSA100T31 PO (09:36)
[2019-05-15] MEDS ORDERED: ACETAMINOPHEN ES 500 MG TABLET ONE (09:36)
[2019-05-15] MEDS ORDERED: ONDA4TAB11 PO (09:36)
[2019-05-15] MEDS ORDERED: APIX5TAB4 PO (09:36)
[2019-05-15] MEDS ORDERED: GABA-534 PO (09:36)
[2019-05-15] MEDS ORDERED: CARV6.252 PO (09:36)
[2019-05-15] MEDS ORDERED: FLUT16SP BNOSTRILS (09:39)
--- NOTE | 2019-05-15 09:41 | NUR ---
PT BIB RA S/P SLIP AND FALL IN THE RESTROOM THIS AM. PT DENIES KO. REPORT BILATERAL KNEE PAIN, STATES "NO CUTS, ONLY I CAN'T MOVE THEM". NO ABRASIONS, LACS, BRUISES, OR DEFORMITIES NOTED. DENIES NECK/BACK/HEAD PAIN. SKIN WARM DRY. RESP EVEN UNLABORED. NAD NOTED.
[2019-05-15 09:53] LABS: BASOPHILS # (AUTO) 0.1 /CMM (0.0-0.2); BASOPHILS % (AUTO) 1.2 % (0.0-2.0); EOSINOPHILS % (AUTO) 3.1 % (0.0-6.0); HEMATOCRIT 33 % (33-45); HEMOGLOBIN 10.8 g/dL (11.5-14.8); LYMPHOCYTES # (AUTO) 1.3 /CMM (0.8-4.8); LYMPHOCYTES % (AUTO) 21.9 % (20.0-44.0); MEAN CORPUSCULAR HGB CONC 32 g/dl (31.0-36.0); MEAN CORPUSCULAR VOLUME 84 fL (82-100); MONOCYTES # (AUTO) 0.5 /CMM (0.1-1.30); MONOCYTES % (AUTO) 8.4 % (2.0-12.0); NEUTROPHILS # (AUTO) 3.8 /CMM (1.8-8.9); NEUTROPHILS % (AUTO) 65.4 % (43.0-81.0); PLATELET COUNT (AUTO) 211 /CMM (150-450); RED BLOOD CELL COUNT(AUTO) 3.98 MIL/uL (4.0-5.2); WHITE BLOOD COUNT (AUTO) 5.8 K/uL (4.3-11.0)
[2019-05-15 09:58] LABS: CALCIUM, SERUM 9.2 mg/dL (8.5-10.1); CARBON DIOXIDE 29 mmol/L (21-32); CHLORIDE 104 mmol/L (98-107); CREATININE 1.4 mg/dL (0.6-1.3); GLUCOSE 98 mg/dL (74-106); SODIUM SERUM 139 mmol/L (136-145); UREA NITROGEN, BLOOD 25 mg/dL (7-18)
--- NOTE | 2019-05-15 10:31 | NUR ---
pt resting quietly, NAD noted. attempted to ambulate pt with walker however pt is unable to take a step after standing, reports severe pain when standing. pt now reports that she uses a wheelchair almost all the time due to pain and "i just can't move them", including prior to fall this AM.
--- NOTE | 2019-05-15 10:53 | NUR ---
PAGED [facility].
--- NOTE | 2019-05-15 11:06 | NUR ---
CALLED NURSING SUP FOR M/S BED.
--- NOTE | 2019-05-15 11:12 | NUR ---
NURSING SUP GAVE M/S BED 204-1.
--- NOTE | 2019-05-15 11:17 | NUR ---
report given to chana perez for admission
[2019-05-15] MEDS ORDERED: ONDANSETRON HCL/PF 4 MG/2 ML VIAL IVP PRN (11:30)
[2019-05-15] MEDS ORDERED: MAGNESIUM HYDROXIDE 30 ML UDC PO PRN (11:30)
[2019-05-15] MEDS ORDERED: Z GUARD REMEDY 2 OZ OINT TP PRN (11:30)
[2019-05-15] MEDS ORDERED: MAG HYDROX/AL HYDROX/SIMETH 30 ML UDC PO PRN (11:30)
--- NOTE | 2019-05-15 11:50 | NUR ---
M/S RN NOTES PATIENT RECEIVED AWAKE IN BED, NO RESPIRATORY DISTRESS, C/O PAIN ON THE LEFT LEG/KNEE 08/15, WILL GIVE PAIN MEDICATION ORDERED AND WILL REASSESS. SKIN WARM TO TOUCH, SKIN ASSESSED, NO SKIN BREAKDOWN, IV ACCESS SITE INTACT AND PATENT. PATIENT'S BELONGINGS ACCOUNTED FOR AND BELONGINGS LIST SIGNED. ADMISSION ORDERS CARRIED. PATIENT'S NEEDS ATTENDED, BED ON LOWEST LOCKED POSITION, CALL LIGHT WITHIN REACH. WILL CONTINUE TO MONITOR.
[2019-05-15] MEDS: HYDROCODONE/APAP 5/325MG 1 EACH TABLET PO PRN ×2 (11:54→19:40)
[2019-05-15] MEDS: IV NS 0.9% 1,000 ML IV PRN (12:22)
[2019-05-15] MEDS ORDERED: MORPHINE SULFATE INJ 2 MG/ML DISP.SYRIN IV PRN (16:00)
--- NOTE | 2019-05-15 18:20 | NUR ---
M/S RN NOTES PATIENT AWAKE IN BED, NO RESPIRATORY DISTRESS, C/O PAIN ON THE LEFT KNEE, 09/14, OFFERED NORCO ORDERED. SKIN WARM TO TOUCH, IV ACCESS SITE INTACT AND PATENT. PATIENT'S NEEDS ATTENDED, BED ON LOWEST LOCKED POSITION, CALL LIGHT WITHIN REACH, WILL ENDORSE TO ONCOMING NURSE.
--- NOTE | 2019-05-15 19:00 | NUR ---
RN medsurg opening notes Received Pt from morning nurse. Pt is alert and orientedX4. Pt is resting in bed comfortably. Respiration is normal. No SOB. No S/S of distress noted. IV sites at RAC# 22 is clean, intact, patent and infusing well NS@ 75 ml/hr. Safety precautions is maintained. Bed at low position, brakes locked, side railsupX3 and call light is within reach. Will continue to monitor.
[2019-05-15 20:00] VITALS: BP_SYST 135; BP_SYST 138; BP_SYST 140; BP_DIAS 76; BP_DIAS 80; BP_DIAS 85
[2019-05-15 21:07] VITALS: BP 138/85
[2019-05-15] MEDS: ZOLPIDEM TARTRATE 5 MG TABLET PO PRN (21:55)
--- NOTE | 2019-05-15 21:55 | NUR ---
RN medsurg notes Pt is having problem falling a sleep and requesting sleeping pill. Pt stated "I can't sleep. Do you have something for sleeping?' Administered ambien 5 mg/po/1 tab as ordered for sleeping. Safety precautions is maintained. Will continue to monitor.
--- NOTE | 2019-05-15 23:35 | NUR ---
RN medsurg notes Informed and notified Dr. Lagos about meds reconcile.
--- NOTE | 2019-05-16 01:20 | NUR ---
RN stan notes Drop off Pt's belonging at nursing phlebotomist supervisor/instructor office. Nursing phlebotomist supervisor/instructor Liane placed Pt's belonging in the safe.
[2019-05-16] MEDS: IV NS 0.9% 1,000 ML IV PRN (01:47)
[2019-05-16] MEDS: HYDROCODONE/APAP 5/325MG 1 EACH TABLET PO PRN ×2 (01:53→20:41)
--- NOTE | 2019-05-16 01:53 | NUR ---
RN medsurg notes Pt is complaining of pain on left leg and knee and requesting pain meds. Administered norco 5-325/po/1 tab as ordered for pain per pt request. Will continue to monitor.
[2019-05-16 06:25] LABS: BASOPHILS % (AUTO) 0.3 % (0.0-2.0); EOSINOPHILS % (AUTO) 3.2 % (0.0-6.0); HEMATOCRIT 30 % (33-45); HEMOGLOBIN 9.8 g/dL (11.5-14.8); LYMPHOCYTES # (AUTO) 1.3 /CMM (0.8-4.8); LYMPHOCYTES % (AUTO) 20.8 % (20.0-44.0); MEAN CORPUSCULAR HGB CONC 33 g/dl (31.0-36.0); MEAN CORPUSCULAR VOLUME 82 fL (82-100); MONOCYTES # (AUTO) 0.6 /CMM (0.1-1.30); MONOCYTES % (AUTO) 10.5 % (2.0-12.0); NEUTROPHILS # (AUTO) 3.9 /CMM (1.8-8.9); NEUTROPHILS % (AUTO) 65.2 % (43.0-81.0); PLATELET COUNT (AUTO) 199 /CMM (150-450)
[2019-05-16 06:46] LABS: CALCIUM, SERUM 8.4 mg/dL (8.5-10.1); CREATININE 1.2 mg/dL (0.6-1.3); MAGNESIUM 1.8 mg/dL (1.8-2.4); PHOSPHORUS 4.2 mg/dL (2.5-4.9); POTASSIUM 4.7 mmol/L (3.5-5.1)
--- NOTE | 2019-05-16 07:00 | NUR ---
RN medsurg closing notes Pt is resting in bed comfortably. Pt is alert and orientedX4. Respiration is normal. No SOB. No S/S of distress noted. IV sites at RAc# 22 is clean, intact and infusing well NS @ 75 ml/hr. VS is stable. Kept Pt clean, dry and comfortable. All needs met and attended. Safety precautions is maintained. Bed at low position, brakes locked, side rails upX2 and call light is within reach. Will endorse to morning nurse for PATSY.
--- NOTE | 2019-05-16 08:00 | NUR ---
MS RN OPENING NOTES Received Patient awake and resting in bed. A/O x 4. VS stable with no acute distress. Breathing even and unlabored on room air with no respiratory distress. Denies pain. 22g PIV on RAC clean, intact, patent and flushing well with NS infusing at 75ml/hr. Safety precautions in place. Bed locked and set to lowest position with side rails x 2 up. All needs rendered at this time. Call light within reach. Will continue to monitor.
[2019-05-16 08:07] VITALS: BP 143/71
[2019-05-16] MEDS: ACETAMINOPHEN 325 MG TABLET PO PRN (16:31)
[2019-05-16 16:39] VITALS: BP 144/69
--- NOTE | 2019-05-16 18:55 | NUR ---
MS RN CLOSING NOTES Received Patient asleep and resting in bed. A/O x 4. VS stable with no acute distress. Breathing even and unlabored on room air with no respiratory distress. Denies pain. 22g PIV on RAC clean, intact, patent and flushing well with NS infusing at 75ml/hr. Safety precautions in place. Bed locked and set to lowest position with side rails x 2 up. All needs rendered at this time. Call light within reach. Will endorse plan of care to oncoming shift.
--- NOTE | 2019-05-16 20:18 | NUR ---
MS RN NOTES RECEIVED PATIENT AWAKE IN BED WITH NO DISTRESS NOTED. CALL LIGHT WITHIN REACH. NO C/O PAIN OR DISCOMFORT. PERIPHERAL LINE INTACT AND PATENT. ENCOURAGED USE OF CALL LIGHT FOR ASSISTANCE AND VERBALIZED/DEMONSTRATED GOOD UNDERSTANDING. ROOM FREE OF CLUTTER AND BELONGINGS KEPT NEAR BEDSIDE. BED IN LOW LOCK SETTING WITH BED ALARM ON AND FUNCTIONING PROPERLY. WILL CONTINUE TO MONITOR
[2019-05-16 20:25] VITALS: BP 160/73
[2019-05-16] MEDS: ZOLPIDEM TARTRATE 5 MG TABLET PO PRN ×2 (20:36→22:58)
[2019-05-16] MEDS ORDERED: TRAMADOL HCL 50 MG TABLET PO PRN (21:00)
[2019-05-16] MEDS ORDERED: ONDANSETRON 4 MG TAB.RAPDIS SL PRN (21:00)
[2019-05-16] MEDS: ATORVASTATIN 10 MG TABLET PO SCH (22:58)
[2019-05-17] MEDS: IV NS 0.9% 1,000 ML IV PRN ×2 (02:02→15:32)
--- NOTE | 2019-05-17 06:42 | NUR ---
MS RN NOTES PATIENT ASLEEP IN BED WITH NO DISTRESS NOTED. CALL LIGHT WITHIN REACH. ALL DUE MEDS GIVEN ORDERED WITH NO ASE. PERIPHERAL LINE INTACT AND PATENT. BED IN LOW LOCK SETTING WITH BED ALARM ON AND FUNCTIONING PROPERLY. ROOM FREE OF CLUTTER AND BELONGINGS KEPT NEAR BEDSIDE. WILL ENDORSE TO ONCOMING SHIFT.
--- NOTE | 2019-05-17 07:10 | NUR ---
MS RN NOTES RECEIVED PATIENT IN BED, ALERT AND AWAKE X4. HOB ELEVATED. NO SOB. DENIES ANY C/O PAIN NOR DISCOMFORT AT THIS TIME. RFA # 22 INTACT AND PATENT INFUSING NS @ 75ML/HR IVON WELL. BED IN LOWEST POSITION, LOCKED. BED ALARM ON. CALL LIGHT WITHIN REACH. BED SIDERAILS UP X2. ABLE TO VERBALIZE NEEDS.
[2019-05-17 08:00] VITALS: BP 141/80
[2019-05-17] MEDS: GABAPENTIN 300 MG CAPSULE PO SCH ×2 (08:17→16:25)
[2019-05-17] MEDS: LEVOTHYROXINE SODIUM 100 MCG TABLET PO SCH (08:17)
[2019-05-17] MEDS: CLOPIDOGREL BISULFATE 75 MG TABLET PO SCH (08:18)
[2019-05-17] MEDS: CARVEDILOL 6.25 MG TABLET PO SCH (08:18)
[2019-05-17] MEDS: LOSARTAN POTASSIUM 50 MG TABLET PO SCH (08:18)
[2019-05-17] MEDS: APIXABAN 5 MG TABLET PO SCH ×2 (08:19→16:26)
[2019-05-17] MEDS ORDERED: APIXABAN 5 MG TABLET PO SCH (09:00)
[2019-05-17 16:00] VITALS: BP 133/71
--- NOTE | 2019-05-17 18:49 | NUR ---
MS RN NOTES PATIENT RESTING COMFORTABLY IN BED WATCHING TV. HOB ELEVATED. NO SOB. DENIES ANY C/O PAIN NOR DISCOMFORT AT THIS TIME. RFA # 22 INTACT AND PATENT INFUSING NS @ 75ML/HR IVNO WELL. BED IN LOWEST POSITION, LOCKED. BED ALARM ON. CALL LIGHT WITHIN REACH. BED SIDERAILS UP X2. IN NO APPARENT DISTRESS.
--- NOTE | 2019-05-17 19:30 | NUR ---
RN NOTES RECEIVED PT. AWAKE ON BED A/OX4, COMPLAINED OF KNEE PAIN, PER PT. SHE HAS ARTHRITIS,,, CALL LIGHT WITHIN REACH, SIDERAILSUPX2, CONTINUE TO MONITOR
[2019-05-17] MEDS: ACETAMINOPHEN 325 MG TABLET PO PRN (19:50)
--- NOTE | 2019-05-17 19:50 | NUR ---
RN NOTES COMPLAINED OF KNEE PAIN , PER PT. SHE HAS ARTHRITIS AND ASKED FOR TYLENOL- TYLENOL 650MG PO GIVEN ORDERED
[2019-05-17 20:00] VITALS: BP 130/58
[2019-05-17] MEDS: ATORVASTATIN 10 MG TABLET PO SCH (21:15)
[2019-05-17] MEDS: ZOLPIDEM TARTRATE 5 MG TABLET PO PRN (21:35)
[2019-05-18] MEDS: IV NS 0.9% 1,000 ML IV PRN (03:03)
--- NOTE | 2019-05-18 06:54 | NUR ---
RN NOTES AWAKE, DENIES PAIN, NO SOB, BED IN LOCKED POSITION, CALL LIGHT WITHIN REACH, MORNING CARE RENDERED, PT. NEEDS ATTENDED
--- NOTE | 2019-05-18 07:30 | NUR ---
MS/RN NOTE THE PATIENT IS RECEIVED IN BED. PATIENT IS ALERT AND ORIENTED X3. IN ROOM AIR AND DENIES SOB. RESPIRATION REGULAR AND UNLABORED. DENIES PAIN. THE PATIENT IN NO APPARENT DISTRESS. RAC G 22 PATENT AND NS INFUSING AT 75ML/HR AND NO S/S INFILTRATION NOTED. BED LOW AND LOCKED. SIDE RAILS UP X3. CALL LIGHT WITHIN REACH. WILL CONTINUE TO MONITOR.
[2019-05-18 08:00] VITALS: BP 134/68
[2019-05-18] MEDS: GABAPENTIN 300 MG CAPSULE PO SCH (08:13)
[2019-05-18] MEDS: LEVOTHYROXINE SODIUM 100 MCG TABLET PO SCH (08:13)
[2019-05-18] MEDS: CARVEDILOL 6.25 MG TABLET PO SCH (08:14)
[2019-05-18] MEDS: CLOPIDOGREL BISULFATE 75 MG TABLET PO SCH (08:14)
[2019-05-18] MEDS: LOSARTAN POTASSIUM 50 MG TABLET PO SCH (08:14)
[2019-05-18] MEDS: APIXABAN 5 MG TABLET PO SCH (08:15)
[2019-05-18 16:00] VITALS: BP 129/60
--- NOTE | 2019-05-18 16:45 | NUR ---
MS/RN NOTE THE PATIENT IS ALERT AND ORIENTED X3. DISCHARGE EDUCATION PROVIDED TO THE PATIENT AND SHE VERBALIZED UNDERSTANDING. RAC G 22 IV REMOVED WITH MINIMAL BLEEDING. PATIENT GOT PICKED UP VIA AMBULANCE. LEFT THE HOSPITAL IN STABLE CONDITION.
== END 2019-05-18 16:30 | DRG 73 ==
LOC: ER 09:22 → MEDSG2 11:22
PROVIDERS: ADMIT Student in an Organized Health Care Education/Training Program; ATTEND Internal Medicine
DX: G90.8 Other disorders of autonomic nervous system (principal); N17.0 Acute kidney failure with tubular necrosis; I50.32 Chronic diastolic (congestive) heart failure; M62.82 Rhabdomyolysis; I48.0 Paroxysmal atrial fibrillation; E86.0 Dehydration; R55 Syncope and collapse; E03.9 Hypothyroidism, unspecified; E66.9 Obesity, unspecified; Z79.01 Long term (current) use of anticoagulants; Z86.73 Personal history of transient ischemic attack (TIA), and cerebral infarction without residual deficits; W01.0XXA Fall on same level from slipping, tripping and stumbling without subsequent striking against object, initial encounter; I11.0 Hypertensive heart disease with heart failure; I25.10 Atherosclerotic heart disease of native coronary artery without angina pectoris; E78.5 Hyperlipidemia, unspecified; D64.9 Anemia, unspecified; M19.90 Unspecified osteoarthritis, unspecified site; Z68.31 Body mass index [BMI] 31.0-31.9, adult; M25.562 Pain in left knee; M25.561 Pain in right knee; M85.80 Other specified disorders of bone density and structure, unspecified site
CPT/HCPCS: 36415; 71045-TC; 73564-TC; 80048-TC; 80061-TC; 83735-TC; 84100-TC; 84484-TC; 85025-TC; 87081-TC; 93307-TC; 97110-TC; 97112-TC; 97116-TC; 97530-TC; G0378; J2405; J7030

== ENCOUNTER 2019-09-06 13:29 | Inpatient (IN) | payer MEDICARE, MEDICAID ==
[~2019-09-06] VITALS: Ht 157.5 cm; Wt 74.8 kg
[~2019-09-06 13:29] MED LIST changes: -AMIO200T4 PO; +APIX5TAB4 PO; +CARV6.252 PO; +FLUT16SP BNOSTRILS; +LOSA100T31 PO; -METO25TA4 PO; -OMEP40CA13 PO; +ONDA4TAB11 PO; -PRED20TA PO; -VALS160T2 PO; -ZOLP10TA2 PO; -[UNRECOGNIZED DRUG - CODE] PO
--- NOTE | 2019-09-06 13:30 | NUR ---
CARLOS SAUER FROM [facility] FOR ABNORMAL EKG DONE TESTERDAY, TO ER BED 8, HOOKED TO MANAGER TREASURY AND POX, EKG SHOWS A-FIB. CHANGED TO HOSP GOWN, WARM BLANKET PROVIDED, PATIENT AAO x 3, BREATHING EVEN AND UNLABORED. DR PLASENCIA AT BEDSIDE
[2019-09-06] MEDS ORDERED: POLY15DR40 EACHEYE (13:50)
[2019-09-06] MEDS ORDERED: DOCU-141 PO (13:50)
[2019-09-06] MEDS ORDERED: HYDR-4384 PO (13:50)
[2019-09-06] MEDS ORDERED: MULT-447 PO (13:50)
[2019-09-06] MEDS ORDERED: PANT40TA2 PO (13:50)
[2019-09-06] MEDS ORDERED: POLY15DR40 LEFTEYE (13:50)
[2019-09-06] MEDS ORDERED: FERR325T23 PO (13:50)
[2019-09-06] MEDS ORDERED: POLY17PO4 PO (13:50)
[2019-09-06] MEDS ORDERED: DIPH25CA51 PO (13:50)
[2019-09-06] MEDS ORDERED: SENN-261 PO (13:50)
[2019-09-06] MEDS ORDERED: ASCO-352 PO (13:50)
[2019-09-06] MEDS ORDERED: MELA5TAB PO (13:50)
[2019-09-06 13:55] LABS: BASOPHILS % (AUTO) 0.5 % (0.0-2.0); EOSINOPHILS % (AUTO) 2.7 % (0.0-6.0); HEMATOCRIT 34 % (33-45); LYMPHOCYTES # (AUTO) 1.5 /CMM (0.8-4.8); LYMPHOCYTES % (AUTO) 25.3 % (20.0-44.0); MEAN CORPUSCULAR HGB CONC 32 g/dl (31.0-36.0); MEAN CORPUSCULAR VOLUME 84 fL (82-100); MONOCYTES # (AUTO) 0.7 /CMM (0.1-1.30); MONOCYTES % (AUTO) 12.2 % (2.0-12.0); NEUTROPHILS # (AUTO) 3.4 /CMM (1.8-8.9); NEUTROPHILS % (AUTO) 59.3 % (43.0-81.0); PLATELET COUNT (AUTO) 245 /CMM (150-450); RED BLOOD CELL COUNT(AUTO) 4.06 MIL/uL (4.0-5.2); WHITE BLOOD COUNT (AUTO) 5.8 K/uL (4.3-11.0)
[2019-09-06] MEDS ORDERED: IV NS 0.9% 500 ML BAG IV ONE (14:00)
[2019-09-06 14:05] LABS: CALCIUM, SERUM 8.8 mg/dL (8.5-10.1); CREATININE 1.3 mg/dL (0.6-1.3); POTASSIUM 4.5 mmol/L (3.5-5.1)
[2019-09-06] MEDS ORDERED: METOPROLOL TARTRATE INJ 5 MG/5 ML AMPUL ONE ×2 (14:19→14:47)
--- NOTE | 2019-09-06 14:26 | NUR ---
MOVE SHEET SUBMITTED TO ADMITTING AND CALLED FOR TELE BED.
[2019-09-06] MEDS ORDERED: METOPROLOL TARTRATE INJ 5 MG/5 ML AMPUL IV ONE ×2 (14:30→15:00)
--- NOTE | 2019-09-06 14:38 | NUR ---
CALLED [facility]
--- NOTE | 2019-09-06 14:51 | NUR ---
NAOMI MOORE AT BEDSIDE
--- NOTE | 2019-09-06 15:00 | NUR ---
room assignment: 325-2 tele
--- NOTE | 2019-09-06 15:08 | NUR ---
REPORT GIVEN TO SALINA ARMSTRONG OF TELE UNIT
[2019-09-06] MEDS ORDERED: MAGNESIUM HYDROXIDE 30 ML UDC PO PRN (15:30)
[2019-09-06] MEDS ORDERED: MAG HYDROX/AL HYDROX/SIMETH 30 ML UDC PO PRN (15:30)
[2019-09-06] MEDS ORDERED: ONDANSETRON HCL/PF 4 MG/2 ML VIAL IVP PRN (15:30)
[2019-09-06] MEDS ORDERED: POLYETHYLENE GLYCOL 3350 17 GM POWD.PACK PO PRN (15:30)
[2019-09-06] MEDS ORDERED: HYDROCODONE/APAP 5/325MG 1 EACH TABLET PO PRN (15:30)
[2019-09-06 16:00] VITALS: BP 106/63
--- NOTE | 2019-09-06 16:00 | NUR ---
SHUTTLER CAR Open Notes Patient received from ER nurse via Bj. Patient is A/Ox 4 awake and cooperative with no sings of distress in room air. Oriented patient to her room. Patient is bedrest continent with diaper. IV R AC#18G SL intact. Patient complaint of pain gave pain medication as ordered. Bed is in low position side rails up x 2 for safety. Call light within reach. Will continue to monitor.
--- NOTE | 2019-09-06 16:00 | NUR ---
RN Notes When assessing for skin condition, patient refuses to take diaper off to check for any buttocks skin conditions but she states that she has no skin breakdowns and no skin problems on buttocks area.
[2019-09-06] MEDS: DOCUSATE SODIUM 100 MG CAPSULE PO SCH (16:58)
[2019-09-06] MEDS: APIXABAN 5 MG TABLET PO SCH (16:59)
[2019-09-06] MEDS: GABAPENTIN 300 MG CAPSULE PO SCH (16:59)
[2019-09-06] MEDS: ACETAMINOPHEN 325 MG TABLET PO PRN (17:00)
[2019-09-06] MEDS ORDERED: POLYVINYL ALCOHOL 15 ML BOTTLE LEFTEYE PRN (17:00)
[2019-09-06] MEDS ORDERED: Medication Not On Formulary EA (Icosapent Ethyl (Vascepa) 1 GM) PO SCH (17:00)
--- NOTE | 2019-09-06 18:12 | NUR ---
CIGARETTE PACKER Close Notes Patient is calm and resting. Patient is AFib ST 116 heart rate. No signs of distress in room air. IV R AC #18G intact SL. Scheduled medications were given. Bed is in low position with side rails up x 2 for safety. Call light is within reach. Will endorse to programming manager nurse.
[2019-09-06] MEDS: POLYVINYL ALCOHOL 15 ML BOTTLE LEFTEYE SCH (19:17)
--- NOTE | 2019-09-06 19:17 | NUR ---
LONG WINDER TENDER NOTES PER PT RECORDS, PT TESTED POSITIVE AT THE [facility] ON 07/13/19, NO DOCUMENTATION THAT SHE IS NOW NEGATIVE PT STATES, CALLED [facility] BUT THEY DO NOT HAVE AN INFO ON THAT, DR. MARTINEZ INFORMED, ORDER OBTAINED FROM FOR COVID TEST, NOTED AND CARRIED OUT.
--- NOTE | 2019-09-06 19:21 | NUR ---
V/STOL LANDING SIGNAL OFFICER NOTES PATIENT RECEIVED IN BED RESTING COMFORTABLY. ON ROOM AIR WITH NO RESPIRATORY DISTRESS AT THIS TIME, WITH EVEN NON-LABORED BREATHING, AND NO SIGNS OF SOB NOTED. ON CATTLE FEEDER, CONTROLLED AFIB , 90'S. SKIN WARM AND DRY TO TOUCH. IV ON RIGHT AC, 18 GAUGE INTACT AND PATENT. SAFETY PRECAUTIONS IMPLEMENTED WITH BED LOCKED, BED IN THE LOWEST POSITION, BILATERAL SIDE RAILS UP, BED ALARM ON, AND CALL LIGHT WITHIN EASY REACH OF THE PATIENT. WILL CONTINUE TO MONITOR PATIENT.
[2019-09-06 20:00] VITALS: BP 116/78
[2019-09-06] MEDS: SENNOSIDES 8.6 MG TABLET PO SCH (21:25)
--- NOTE | 2019-09-06 21:35 | NUR ---
RIG SUPERVISOR NOTES COVID-19 SWAB DONE AND SENT TO LAB. PLACED PATIENT ON ISOLATION PRECAUTIONS FOR RULE OUT COVID. WILL CONTINUE TO MONITOR PATIENT.
--- NOTE | 2019-09-06 22:22 | NUR ---
ASSOCIATE SALES NOTES REPORT GIVEN TO PATTI SOLANO. PATIENT ON ISOLATION PRECAUTIONS FOR RULE OUT COVID-19, ON ROOM AIR WITH NO SIGNS OF RESPIRATORY DISTRESS AT THIS TIME. IV ACCESS INTACT AND PATENT. SAFETY PRECAUTIONS IMPLEMENTED WITH BED LOCKED, BED IN THE LOWEST POSITION, BILATERAL SIDE RAILS UP, BED ALARM ON, AND CALL LIGHT WITHIN EASY REACH OF THE PATIENT.
[2019-09-07] VITALS: BP_SYST 116; BP_SYST 92; BP_DIAS 67; BP_DIAS 78
[2019-09-07 04:00] VITALS: BP 117/57
[2019-09-07 05:53] VITALS: BP 117/57
[2019-09-07 06:14] LABS: BASOPHILS % (AUTO) 0.4 % (0.0-2.0); HEMATOCRIT 32 % (33-45); HEMOGLOBIN 10.2 g/dL (11.5-14.8); LYMPHOCYTES # (AUTO) 1.3 /CMM (0.8-4.8); LYMPHOCYTES % (AUTO) 25.3 % (20.0-44.0); MEAN CORPUSCULAR HGB CONC 32 g/dl (31.0-36.0); MEAN CORPUSCULAR VOLUME 85 fL (82-100); MONOCYTES # (AUTO) 0.6 /CMM (0.1-1.30); MONOCYTES % (AUTO) 11.5 % (2.0-12.0); NEUTROPHILS # (AUTO) 3.1 /CMM (1.8-8.9); NEUTROPHILS % (AUTO) 58.8 % (43.0-81.0); PLATELET COUNT (AUTO) 213 /CMM (150-450); RED BLOOD CELL COUNT(AUTO) 3.75 MIL/uL (4.0-5.2); WHITE BLOOD COUNT (AUTO) 5.3 K/uL (4.3-11.0)
[2019-09-07 06:41] LABS: ALBUMIN 2.9 g/dL (3.4-5.0); BILIRUBIN,TOTAL 0.3 mg/dL (0.2-1.0); CALCIUM, SERUM 8.5 mg/dL (8.5-10.1); CREATININE 1.1 mg/dL (0.6-1.3); MAGNESIUM 1.9 mg/dL (1.8-2.4); PHOSPHORUS 4.3 mg/dL (2.5-4.9); POTASSIUM 4.4 mmol/L (3.5-5.1)
--- NOTE | 2019-09-07 06:50 | NUR ---
RN MS CLOSING NOTE PATIENT AWAKE IN SEMI-FOWLERS POSITION. C/O PAIN 8/10 TO LT KNEE. PAIN MEDICATION GIVEN. PT ON ISOLATION PRECAUTIONS FOR RULE OUT COVID-19. PT ON ROOM AIR WITH NO S/S OF RESPIRATORY DISTRESS AT THIS TIME. IV TO RAC PATENT, INTACT AND FLUSHING WELL. BED LOCKED AND IN THE LOWEST POSITION, SIDE RAILS UP X 2, BED ALARM ON, CALL LIGHT WITHIN REACH. ENDORSED TO AM RN FOR PATSY.
[2019-09-07 08:00] VITALS: BP 100/62
--- NOTE | 2019-09-07 08:00 | NUR ---
WASTE TRANSPORTATION TECHNICIAN NOTES PATIENT RECEIVED IN BED RESTING COMFORTABLY. ON ROOM AIR WITH NO RESPIRATORY DISTRESS AT THIS TIME, WITH EVEN NON-LABORED BREATHING, AND NO SIGNS OF SOB NOTED. ON SENIOR JAVA WEB APPLICATION DEVELOPER, CONTROLLED AFIB , 90'S. SKIN WARM AND DRY TO TOUCH. IV H/L ON RIGHT AC, 18 GAUGE INTACT AND PATENT. SAFETY PRECAUTIONS IMPLEMENTED WITH BED LOCKED, BED IN THE LOWEST POSITION, BILATERAL SIDE RAILS UP, BED ALARM ON, AND CALL LIGHT WITHIN EASY REACH OF THE PATIENT. WILL CONTINUE TO MONITOR PATIENT.
[2019-09-07] MEDS ORDERED: CARVEDILOL 6.25 MG TABLET PO SCH (09:00)
[2019-09-07] MEDS: CARVEDILOL 6.25 MG TABLET PO SCH (09:00)
[2019-09-07] MEDS: ASCORBIC ACID 500 MG TABLET PO SCH (09:27)
[2019-09-07] MEDS: DOCUSATE SODIUM 100 MG CAPSULE PO SCH ×3 (09:27→16:26)
[2019-09-07] MEDS: LEVOTHYROXINE SODIUM 112 MCG TABLET PO SCH (09:27)
[2019-09-07] MEDS: PANTOPRAZOLE 40 MG TABLET.DR PO SCH (09:27)
[2019-09-07] MEDS: FERROUS SULFATE (325 MG) 325 MG/TAB TABLET PO SCH (09:27)
[2019-09-07] MEDS: MULTIVIT W/MINERALS 1 TAB TABLET PO SCH (09:27)
[2019-09-07] MEDS: GABAPENTIN 300 MG CAPSULE PO SCH ×2 (09:27→16:22)
[2019-09-07] MEDS: APIXABAN 5 MG TABLET PO SCH ×2 (09:28→16:22)
[2019-09-07] MEDS: CLOPIDOGREL BISULFATE 75 MG TABLET PO SCH (09:29)
[2019-09-07] MEDS: POLYVINYL ALCOHOL 15 ML BOTTLE LEFTEYE SCH ×3 (09:30→16:26)
--- NOTE | 2019-09-07 13:50 | NUR ---
TRANSFERRED TO [facility] BY BED WITH STABLE V/S AND BELONGINGS,SHOES. RECEIVED A CALL FROM [facility] FOR PT HAVING MRSA POSITIVE RESULT.NOTIFIED TERESA AND OBTAINED BACTROBAN OINTMENT ORDER AND CARRIED OUT.
--- NOTE | 2019-09-07 14:50 | NUR ---
REPORT AND PT'S BELONGINGS GIVEN TO BRIELLE ACEVES RN
--- NOTE | 2019-09-07 15:00 | NUR ---
[facility] RN NOTES RECEIVED PT FROM [address] [place] GAVE ME THE REPORT. PT IS ON ROOM AIR SAT IN 98%. PT IS AFIB. ALL MEDS ARE GIVEN AND NEEDS MET. THE BED IN LOWEST POSITION. RAILS ARE UP X2. SAFET MEASUREMENTS ARE IMPLEMENTED. COVID TEST IS STILL PENDING. CALL LIGHT WITHIN TE REACH. WILL ENDORSE TO NIGHTSHIFTS FOR PATSY.
[2019-09-07] MEDS: MUPIROCIN OINT 2% 22 GM TUBE SCH ×2 (15:36→21:29)
[2019-09-07 16:00] VITALS: BP 125/81
[2019-09-07] MEDS: WARFARIN SODIUM 5 MG TABLET PO SCH (16:25)
--- NOTE | 2019-09-07 18:17 | NUR ---
[facility]EL[facility] RN OPENING NOTE: PATIENT IS RESTING IN ROOM. NO SIGNS OF RESPIRATORY DISTRESS. PT IS ON ROOM AIR SAT 99 %.SAFETY MEASURES ARE IMPLEMENTED, BED IN LOWEST POSITION, LOCKED, SIDE RAILS UP, CALL LIGHT WITHIN REACH. PT IS CLEAN, ALL MEDS AND NEEDS WERE MET. WILL ENDORSE TO NIGHTSHIFT FOR PATSY
[2019-09-07] MEDS: HYDROCODONE/APAP 10/325MG 1 EA TABLET PO PRN (19:05)
--- NOTE | 2019-09-07 19:20 | NUR ---
RN OPENING NOTE RECEIVED PATIENT IN BED RESTING ALERT ORIENTED X4 VERBALLY RESPONSIVE,ABLE TO MAKE HER NEEDS KNOWN, BREATHING IS EVEN AND UNLABORED NO SOB NOT ACUTE DISTRESS NOTED AT THIS TIME,ON ROOM AIR ROLLED OUT FOR COVID ON 09/06/19 STILL PENDING CONTINUE TO MONITOR.
[2019-09-07 20:00] VITALS: BP 99/66
[2019-09-07] MEDS: SENNOSIDES 8.6 MG TABLET PO SCH (21:27)
[2019-09-07] MEDS: ATORVASTATIN 10 MG TABLET PO SCH (21:27)
[2019-09-08] VITALS: BP_SYST 102; BP_SYST 131; BP_SYST 91; BP_DIAS 56; BP_DIAS 71
[2019-09-08] MEDS: diphenhydrAMINE HCL 25 MG CAPSULE PO PRN (00:19)
[2019-09-08 04:00] VITALS: BP 131/71
--- NOTE | 2019-09-08 06:35 | NUR ---
RN CLOSING NOTE PATIENT REMAINS IN STABLE CONDITION,ALERT ORIENTED X4 VERBALLY RESPONSIVE NO SOB NOT ACUTE DISTRESS NOTED,ABLE TO MAKE NEEDS KNOWN,BREATHING IS EVEN AND UNLABORED,ALL DUE MES GIVEN MD ORDERED,AND SHE TOLERATED WELL,KEPT CLEAN AND DRY ALL THE TIME,KEPT CALL LIGHT WITHIN REACH,ALL NEEDS MET ,WILL ENDORSE NEXT COMING SHIFT FOR CONTINUATION OF CARE.
[2019-09-08 07:26] LABS: BASOPHILS % (AUTO) 0.4 % (0.0-2.0); HEMATOCRIT 33 % (33-45); HEMOGLOBIN 10.5 g/dL (11.5-14.8); LYMPHOCYTES # (AUTO) 1.4 /CMM (0.8-4.8); LYMPHOCYTES % (AUTO) 29.2 % (20.0-44.0); MEAN CORPUSCULAR HGB CONC 32 g/dl (31.0-36.0); MEAN CORPUSCULAR VOLUME 84 fL (82-100); MONOCYTES # (AUTO) 0.5 /CMM (0.1-1.30); MONOCYTES % (AUTO) 9.4 % (2.0-12.0); NEUTROPHILS # (AUTO) 2.8 /CMM (1.8-8.9); PLATELET COUNT (AUTO) 230 /CMM (150-450); RED BLOOD CELL COUNT(AUTO) 3.89 MIL/uL (4.0-5.2)
[2019-09-08 07:33] LABS: CALCIUM, SERUM 8.3 mg/dL (8.5-10.1); CARBON DIOXIDE 26 mmol/L (21-32); CHLORIDE 107 mmol/L (98-107); GLUCOSE 85 mg/dL (74-106); POTASSIUM 4.6 mmol/L (3.5-5.1); SODIUM SERUM 139 mmol/L (136-145); UREA NITROGEN, BLOOD 26 mg/dL (7-18)
[2019-09-08 08:00] VITALS: BP 110/77
[2019-09-08] MEDS: PANTOPRAZOLE 40 MG TABLET.DR PO SCH (08:18)
[2019-09-08] MEDS: LEVOTHYROXINE SODIUM 112 MCG TABLET PO SCH (08:18)
[2019-09-08] MEDS: POLYVINYL ALCOHOL 15 ML BOTTLE LEFTEYE SCH ×3 (08:19→17:10)
[2019-09-08] MEDS: MULTIVIT W/MINERALS 1 TAB TABLET PO SCH (08:20)
[2019-09-08] MEDS: GABAPENTIN 300 MG CAPSULE PO SCH ×2 (08:20→17:31)
[2019-09-08] MEDS: ASCORBIC ACID 500 MG TABLET PO SCH (08:20)
[2019-09-08] MEDS: DOCUSATE SODIUM 100 MG CAPSULE PO SCH ×3 (08:20→17:31)
[2019-09-08] MEDS: FERROUS SULFATE (325 MG) 325 MG/TAB TABLET PO SCH (08:20)
[2019-09-08] MEDS: APIXABAN 5 MG TABLET PO SCH ×2 (08:22→17:00)
[2019-09-08] MEDS: CLOPIDOGREL BISULFATE 75 MG TABLET PO SCH (08:24)
[2019-09-08] MEDS: CARVEDILOL 6.25 MG TABLET PO SCH (08:24)
[2019-09-08] MEDS: MUPIROCIN OINT 2% 22 GM TUBE SCH ×2 (09:39→21:24)
[2019-09-08 11:02] LABS: THYROID STIMULATING HORMONE 0.287 uIU/mL (0.358-3.74)
[2019-09-08] MEDS: DILTIAZEM HCL CD 240 MG PO SCH (11:22)
[2019-09-08] MEDS: HYDROCODONE/APAP 10/325MG 1 EA TABLET PO PRN ×2 (11:23→12:28)
[2019-09-08 12:00] VITALS: BP 94/60
[2019-09-08] MEDS: SOD FERRIC GLUC 125 MG in IV NS 0.9% 100 ML IV SCH (14:36)
[2019-09-08 16:00] VITALS: BP_SYST 92; BP_SYST 99; BP_DIAS 44; BP_DIAS 45
--- NOTE | 2019-09-08 17:30 | NUR ---
RN SPOKE TO MD SILVERIO IN REWARDS TO MEDICATION. ELIQUIS AND WARFARIN DUE AT 1500. TOLD HER THAT PER DAIRY HELPER NOTES DO NOT GIVE ELIQUIS. INR IS 2.10. MD ALANIZ APPROVED TO GIVE WARFARIN
[2019-09-08] MEDS: WARFARIN SODIUM 5 MG TABLET PO SCH (17:44)
--- NOTE | 2019-09-08 17:51 | NUR ---
SPOKE TO MD ALANIZ REGARDING PATIENT BLOOD PRESSURE. IN THE LAST HOUR 92/45, 89/49, 99/44. ORDERED IV BOLUS 500 NS.
[2019-09-08] MEDS ORDERED: IV NS 0.9% 500 ML IV ONE (18:00)
--- NOTE | 2019-09-08 19:30 | NUR ---
INSULATION PROFESSIONAL OPENING NOTES PATIENT RECEIVED RESTING IN BED COMFORTABLY; A/OX4; BREATHING EVEN AND UNLABORED; PATIENT TOLERATING ROOM AIR WELL; NO SOB NOTED; PER AM SHIFT, PATIENT CURRENTLY RECEIVING NS BOLUS D/T HYPOTENSIVE BP NOTED; PATIENT TOLERATING IVF WELL; NO DISTRESS NOTED; TELE MONITOR READS A.FIB 67BPM; ISOLATION PRECAUTIONS MAINTAINED; SAFETY PRECAUTIONS IMPLEMENTED; BED LOCKED IN LOW POSITION; SIDE RAILS X2; CALL LIGHT WITHIN REACH; WILL CONT TO MONITOR
--- NOTE | 2019-09-08 19:39 | NUR ---
RN CLOSING NOTE PATIENT IN ROOM COMFORTABLY. PATIENT IS A/O X4 . NO SOB. NO S/S OF ACUTE DISTRESS NOTED,ABLE TO MAKE NEEDS KNOWN. BREATHING IS EVEN AND UNLABORED. BED IN LOWEST POSITION AND LOCKED. CALL LIGHT WITHIN EASY REACH.ALL NEEDS MET ,WILL ENDORSE NEXT COMING SHIFT FOR PATSY.
[2019-09-08 20:00] VITALS: BP 100/58
[2019-09-08] MEDS: ATORVASTATIN 10 MG TABLET PO SCH (21:26)
[2019-09-08] MEDS: SENNOSIDES 8.6 MG TABLET PO SCH (21:26)
--- NOTE | 2019-09-08 21:46 | NUR ---
HOT MILL OPERATOR NOTES PATIENT COMPLAINING OF IV SITE PAIN; IV SITE IS INTACT; L HAND # 22 INTACT AND PATENT; PATIENT IS A HARD STICK; PAGED EPIC FOR MIDLINE ACCESS; PER DR. SHILPI HINDS, TALA FOR MIDLINE; CHARGE NURSE AWARE; WILL INFORM NURSING SPANISH INTERPRETER; PATIENT ALSO REQUESTING SLEEPING AID; PATIENT REPORTED OK FOR ANY KIND OF SLEEPING AID; PER MD GUZMÁN 5 MG PO, PRN; WILL ORDER; WILL CONT TO MONITOR
[2019-09-09] VITALS: BP 101/45
--- NOTE | 2019-09-09 | NUR ---
BROILER CHEF OR COOK NOTES R UA # 18 MIDLINE OBTAINED; FLUSHING WELL; NO S/S OF REDNESS OR INFILTRATION NOTED; PREVIOUS IV SITE, L HAND # 22 REMOVED; IV TIP INTACT; NO S/S OF BLEEDING; WILL CONT TO MONITOR
[2019-09-09] MEDS: ZOLPIDEM TARTRATE 5 MG TABLET PO PRN ×2 (01:13→21:19)
--- NOTE | 2019-09-09 03:03 | NUR ---
SUPERVISOR WALL MIRROR DEPARTMENT NOTES PATIENT IS CURRENTLY CONFUSED AND SPEAKING GUINEAN/SCOTTISH; PATIENT RECEIVED AMBIEN 5MG PO APPROXIMATELY 0113; WILL CONT TO MONITOR
--- NOTE | 2019-09-09 03:51 | NUR ---
GLAZIER APPRENTICE NOTES PATIENT STILL HAS MILD CONFUSION D/T SLEEPING PILL; PATIENT VERBALIZED SHE WANTED TO GET OUT OF BED AND WALK, PATIENT UNABLE TO WALK D/T SWOLLEN LEFT ANKLE AND CHRONIC L KNEE PAIN; PATIENT RE-ORIENTED; SLIGHT SOB NOTED; 2LPM VIA NC ADMINISTERED; WILL CONT TO MONITOR
[2019-09-09 04:34] VITALS: BP 95/56
--- NOTE | 2019-09-09 04:41 | NUR ---
TECHNICAL DESIGNER NOTES PATIENT 0400 BP: 95/56, INFORMED; AWAITING ORDERS; PATIENT A/OX2-3; CONFUSION FROM AMBIEN 5MG PO, PRN WEARING OFF; WILL CONT TO MONITOR
--- NOTE | 2019-09-09 04:49 | NUR ---
PHOTOGRAMMETRIC STEREO COMPILER NOTES PER MD; ADMINISTER ANOTHER 500 CC OF NS BOLUS FOR PATIENT; WILL ADMINISTER PER MD ORDER AND CONT TO MONITOR; CHARGE NURSE AWARE
[2019-09-09] MEDS ORDERED: IV NS 0.9% 500 ML IV ONE (05:00)
--- NOTE | 2019-09-09 05:36 | NUR ---
BULL RIDER NOTES PATIENT KEEPS TAKING OFF NASAL CANNULA; PATIENT SATTING 96% ON ROOM AIR, SLIGHT WHEEZING NOTED; CHARGE NURSE AWARE; AWAITING BOLUS TO COMPLETE; WILL CONT TO MONITOR
--- NOTE | 2019-09-09 06:33 | NUR ---
DOG CONTROL OFFICER CLOSING NOTES SPOKE WITH LAB, COVID RESULT NEGATIVE; CHARGE NURSE AWARE; PATIENT SLEEPING IN BED COMFORTABLY; EASILY AROUSED TO LIGHT STIMULI; A/OX2-3; BREATHING EVEN, SLIGHT WHEEZING NOTED; PATIENT REPORTED SHE DOES NOT WANT NASAL CANNULA; PATIENT SATTING AT 95% ON ROOM AIR WITH HOB ELEVATED; R UA MIDLINE # 18 INTACT AND PATENT; FLUSHING WELL; NS 500 CC BOLUS CURRENTLY INFUSING; PATIENT TOLERATING BOLUS WELL; PATIENT REPORTED SHE WANTED TO REST/SLEEP SOME MORE SHE WAS UNABLE TO GET ENOUGH REST; TELE MONITOR READS A FIB 90BPM; LATEST BP 109/73 P: 63; ALL NEEDS RENDERED; ISOLATION PRECAUTIONS MAINTAINED; SAFETY PRECAUTIONS IMPLEMENTED; BED LOCKED IN LOW POSITION; SIDE RAILS X2; CALL LIGHT WITHIN REACH; WILL ENDORSE PATSY TO ONCOMING NURSE
--- NOTE | 2019-09-09 07:21 | NUR ---
HVAC SALES REPRESENTATIVE NOTES RECEIVED PT IN BED, ASLEEP, EASILY AROUSED, A/O X3-4. TOLERATING RA, WITH NO ACUTE RESPIRATORY DISTRESS NOTED. ON TELEMONITORING WITH AFIB 103. PT DENIES ANY PAIN OR DISCOMFORT AT THIS TIME. PIV TO LEXI MIDLINE G18, FLUSHED WITH NS, INTACT AND OPERATIONAL. PT KEPT COMFORTABLE. PT'S BED IN LOWEST, LOCKED POSITION WITH SRX3. CALL LIGHT KEPT WITHIN REACH. WILL CONTINUE PLAN OF CARE.
[2019-09-09 07:50] LABS: BASOPHILS % (AUTO) 0.5 % (0.0-2.0); EOSINOPHILS % (AUTO) 3.3 % (0.0-6.0); HEMATOCRIT 30 % (33-45); HEMOGLOBIN 9.7 g/dL (11.5-14.8); LYMPHOCYTES # (AUTO) 1.1 /CMM (0.8-4.8); LYMPHOCYTES % (AUTO) 19.1 % (20.0-44.0); MEAN CORPUSCULAR HGB CONC 32 g/dl (31.0-36.0); MEAN CORPUSCULAR VOLUME 84 fL (82-100); MONOCYTES # (AUTO) 0.5 /CMM (0.1-1.30); MONOCYTES % (AUTO) 8.3 % (2.0-12.0); NEUTROPHILS # (AUTO) 4.1 /CMM (1.8-8.9); NEUTROPHILS % (AUTO) 68.8 % (43.0-81.0); PLATELET COUNT (AUTO) 248 /CMM (150-450); RED BLOOD CELL COUNT(AUTO) 3.59 MIL/uL (4.0-5.2)
[2019-09-09 08:00] VITALS: BP 98/66
[2019-09-09] MEDS: ASCORBIC ACID 500 MG TABLET PO SCH (08:02)
[2019-09-09] MEDS: DOCUSATE SODIUM 100 MG CAPSULE PO SCH ×3 (08:02→17:00)
[2019-09-09] MEDS: MULTIVIT W/MINERALS 1 TAB TABLET PO SCH (08:02)
[2019-09-09] MEDS: GABAPENTIN 300 MG CAPSULE PO SCH ×2 (08:02→17:31)
[2019-09-09] MEDS: PANTOPRAZOLE 40 MG TABLET.DR PO SCH (08:02)
[2019-09-09] MEDS: FERROUS SULFATE (325 MG) 325 MG/TAB TABLET PO SCH (08:02)
[2019-09-09] MEDS: LEVOTHYROXINE SODIUM 112 MCG TABLET PO SCH (08:02)
[2019-09-09] MEDS: CLOPIDOGREL BISULFATE 75 MG TABLET PO SCH (08:02)
[2019-09-09 08:05] LABS: CALCIUM, SERUM 8.3 mg/dL (8.5-10.1); CREATININE 1.1 mg/dL (0.6-1.3); POTASSIUM 4.6 mmol/L (3.5-5.1)
[2019-09-09] MEDS: CARVEDILOL 6.25 MG TABLET PO SCH (08:14)
[2019-09-09] MEDS: DILTIAZEM HCL CD 240 MG PO SCH (08:14)
[2019-09-09] MEDS: POLYVINYL ALCOHOL 15 ML BOTTLE LEFTEYE SCH ×3 (08:26→17:31)
[2019-09-09] MEDS: MUPIROCIN OINT 2% 22 GM TUBE SCH ×2 (08:27→21:21)
--- NOTE | 2019-09-09 10:35 | NUR ---
PUTTY TINTER MAKER NOTES PT TRANSFERRED TO 3KENT VIA ACLS PROTOCOL. PT TOLERATING RA WITH NO ACUTE RESPIRATORY DISTRESS NOTED. ENDORSED TO RN/REN FOR PATSY.
--- NOTE | 2019-09-09 10:44 | NUR ---
DISTRICT SALES LEADER NOTES RECEIVED PT FROM BRIELLE, REPORT RECEIVED FROM VICKI RN, VIA BED, PT IS AWAKE, ALERT AND ORIENTED, DENIES PAIN, NO SOB, CALL LIGHT PLACED WITHIN REACH, PROVIDED WITH BEDPAN REQUESTED, KEPT WARM AND COMFORTABLE, NEEDS ATTENDED.
[2019-09-09 10:57] VITALS: BP 112/62
[2019-09-09] MEDS: DIGOXIN INJ 0.5 MG/2 ML AMPUL IV SCH ×3 (12:02→23:54)
[2019-09-09] MEDS: SOD FERRIC GLUC 125 MG in IV NS 0.9% 100 ML IV SCH (14:15)
[2019-09-09 16:00] VITALS: BP 126/70
--- NOTE | 2019-09-09 18:09 | NUR ---
SALESFORCE SPECIALIST NOTES PT IN BED, AWAKE, ALERT AND ORIENTED, NO COMPLAINT OF PAIN, NOT IN DISTRESS, EATING DINNER, SCHEDULED MEDICATIONS GIVEN ORDERED, PT MOVED FROM 306-1 TO 324-2 PER PT REQUEST, ASSISTED WITH MEALS, PM CARE PROVIDED, AFIB WITH HR OF 100-120'S ON THE TELE MONITOR.
[2019-09-09 20:00] VITALS: BP 128/66
[2019-09-09] MEDS: ATORVASTATIN 10 MG TABLET PO SCH (21:19)
[2019-09-09] MEDS: SENNOSIDES 8.6 MG TABLET PO SCH (21:19)
[2019-09-09] MEDS: HYDROCODONE/APAP 10/325MG 1 EA TABLET PO PRN (21:20)
[2019-09-10] VITALS: BP 113/71
[2019-09-10 04:00] VITALS: BP 109/70
--- NOTE | 2019-09-10 06:30 | NUR ---
PREPARATION DEPARTMENT SUPERVISOR NOTES AWAKE & RESPONSIVE. NOT IN ANY DISTRESS. NO SOB NOTED. DENIES ANY PAIN OR DISCOMFORT AT THIS TIME. ON TELE AFIB @ 80S WITH IV-HL PATENT & INTACT. MONITORED ACCORDINGLY. CALL LIGHT WITHIN REACH. BED IN LOWEST POSITION. SR UP X 2 WITH BED ALARM ON FOR SAFETY. WILL ENDORSE TO NEXT SHIFT.
[2019-09-10 06:32] LABS: CALCIUM, SERUM 8.7 mg/dL (8.5-10.1); CREATININE 1.2 mg/dL (0.6-1.3); POTASSIUM 4.6 mmol/L (3.5-5.1)
[2019-09-10 06:36] LABS: BASOPHILS % (AUTO) 0.3 % (0.0-2.0); EOSINOPHILS % (AUTO) 3.6 % (0.0-6.0); HEMATOCRIT 33 % (33-45); HEMOGLOBIN 10.5 g/dL (11.5-14.8); LYMPHOCYTES # (AUTO) 1.1 /CMM (0.8-4.8); LYMPHOCYTES % (AUTO) 21.6 % (20.0-44.0); MEAN CORPUSCULAR HGB CONC 32 g/dl (31.0-36.0); MEAN CORPUSCULAR VOLUME 84 fL (82-100); MONOCYTES # (AUTO) 0.5 /CMM (0.1-1.30); MONOCYTES % (AUTO) 9.5 % (2.0-12.0); NEUTROPHILS # (AUTO) 3.3 /CMM (1.8-8.9); PLATELET COUNT (AUTO) 238 /CMM (150-450); RED BLOOD CELL COUNT(AUTO) 3.88 MIL/uL (4.0-5.2); WHITE BLOOD COUNT (AUTO) 5.1 K/uL (4.3-11.0)
[2019-09-10] MEDS: PANTOPRAZOLE 40 MG TABLET.DR PO SCH (07:48)
--- NOTE | 2019-09-10 08:06 | NUR ---
NATIONAL VAN OWNER OPERATOR OPENING NOTES RECEIVED PT ON BED, A/OX4, OCCITAN/ALBANIAN SPEAKING. RESPIRATION EVEN AND NON LABORED WITH NO ACUTE RESPIRATORY DISTRESS. ABD SOFT AND NON DISTENDED WITH ACTIVE BOWEL SOUNDS. PT DENIES PAIN AND DISCOMFORT. SKIN WARM TO TOUCH AND DRY. ON TELE MONITOR SHOWS SR 90. IV SITE AT LEXI MIDLINE, DRESSING INTACT. BED IN LOW LOCKED POSITION, SR X2 UP FOR SAFETY. CALL LIGHT WITHIN REACH. WILL CONTINUE POC.
[2019-09-10] MEDS: POLYVINYL ALCOHOL 15 ML BOTTLE LEFTEYE SCH ×3 (08:23→16:06)
[2019-09-10] MEDS: MUPIROCIN OINT 2% 22 GM TUBE SCH ×2 (08:23→21:32)
[2019-09-10] MEDS: CLOPIDOGREL BISULFATE 75 MG TABLET PO SCH (08:24)
[2019-09-10] MEDS: CARVEDILOL 6.25 MG TABLET PO SCH (08:24)
[2019-09-10] MEDS: DILTIAZEM HCL CD 120 MG PO SCH (08:24)
[2019-09-10] MEDS: ASCORBIC ACID 500 MG TABLET PO SCH (08:24)
[2019-09-10] MEDS: DOCUSATE SODIUM 100 MG CAPSULE PO SCH ×3 (08:24→16:06)
[2019-09-10] MEDS: MULTIVIT W/MINERALS 1 TAB TABLET PO SCH (08:24)
[2019-09-10] MEDS: GABAPENTIN 300 MG CAPSULE PO SCH ×2 (08:24→16:06)
[2019-09-10 08:26] VITALS: BP 105/42
--- NOTE | 2019-09-10 08:39 | NUR ---
RISK CONTROL CONSULTANT NOTES RECEIVED CRITICAL LAB FROM HATTIE AT LAB, INR 6.72. DMITRIT ON FLOOR, REPORTED CRITICAL LAB VALUE WITH NO NEW ORDERS NOTED.
[2019-09-10] MEDS: HYDROCODONE/APAP 10/325MG 1 EA TABLET PO PRN (10:11)
--- NOTE | 2019-09-10 10:23 | NUR ---
DIRECTOR OF ACCOUNTING NOTES EKG DONE. REPORT GIVEN TO [employer] VP ADVERTISING & ONLINE - ADVISED TO SEND TO DR. LY. PAGED DR. LY, WAITING FOR RESPONSE
--- NOTE | 2019-09-10 10:28 | NUR ---
FOOD DEMONSTRATOR NOTES DR. LY RESPONDED,NO NEW ORDER. OK TO DC TO SNF
[2019-09-10] MEDS ORDERED: Digoxin PO (12:08)
[2019-09-10] MEDS ORDERED: FERR325T23 PO (12:08)
[2019-09-10] MEDS ORDERED: CARV6.252 PO (12:08)
[2019-09-10] MEDS ORDERED: WARF-58 PO (12:08)
[2019-09-10] MEDS: DIGOXIN 0.25 MG TABLET PO SCH (12:39)
--- NOTE | 2019-09-10 12:39 | NUR ---
MS RN NOTES DIGOXIN 1300 DUE HELD DUE TO LOW HR 54
[2019-09-10] MEDS: SOD FERRIC GLUC 125 MG in IV NS 0.9% 100 ML IV SCH (13:50)
[2019-09-10 16:14] VITALS: BP 107/77
[2019-09-10] MEDS: ACETAMINOPHEN 325 MG TABLET PO PRN ×2 (16:42→22:49)
--- NOTE | 2019-09-10 18:45 | NUR ---
M/S RN CLOSING NOTES PT A/OX4. PT WITH NO PRESENCE OF ACUTE RESPIRATORY DISTRESS, ROOM AIR SATING 98%.ABD SOFT AND NON DISTENDED WITH ACTIVE BOWEL SOUNDS, BM TODAY. PT DENIES PAIN AND DISCOMFORT. SKIN WARM TO TOUCH AND DRY, INTACT. IV SITE AT LEXI MIDLINE, DRESSING INTACT. BED IN LOW LOCKED POSITION, SR X2 UP FOR SAFETY. CALL LIGHT WITHIN REACH. ALL CONCERNS ATTENDED. DC ORDER ALREADY TO [facility], WAITING FOR [facility] FOR APPROVAL. ENDORSED PT CARE TO NEXT SHIFT.
[2019-09-10 19:30] VITALS: BP 98/56
--- NOTE | 2019-09-10 19:31 | NUR ---
MS RN NOTES PATIENT IN BED, AWAKE, ALERT AND ORIENTED X 4. BREATHING EVEN AND UNLABORED ON ROOM AIR. SHOWS NO SIGNS OF ACUTE RESPIRATORY DISTRESS, NO ACUTE PAIN. IV ON LEXI MIDLINE ITS CLEAN DRY AND INTACT. SHOWS NO SIGNS OF INFILTRATION, NO REDNESS. SAFETY PRECAUTIONS IN PLACE. BED IN LOWEST POSITION, LOCKED, AND CALL LIGHT KEPT WITHIN REACH. WILL CONTINUE TO MONITOR.
[2019-09-10 20:38] VITALS: BP 98/56
[2019-09-10] MEDS: ATORVASTATIN 10 MG TABLET PO SCH (21:20)
[2019-09-10] MEDS: SENNOSIDES 8.6 MG TABLET PO SCH (21:20)
[2019-09-10] MEDS: diphenhydrAMINE HCL 25 MG CAPSULE PO PRN (21:25)
--- NOTE | 2019-09-11 06:32 | NUR ---
MS RN NOTES PATIENT IN BED, ASLEEP, ALERT AND ORIENTED X 4. BREATHING EVEN AND UNLABORED ON ROOM AIR. SHOWS NO SIGNS OF ACUTE RESPIRATORY DISTRESS, NO ACUTE PAIN. IV ON LEXI MIDLINE ITS CLEAN DRY AND INTACT. SHOWS NO SIGNS OF INFILTRATION, NO REDNESS. ALL DUE MEDICATIONS. SAFETY PRECAUTIONS IN PLACE. BED IN LOWEST POSITION, LOCKED, AND CALL LIGHT KEPT WITHIN REACH. WILL ENDORSE TO ONCOMING NURSE.
--- NOTE | 2019-09-11 07:30 | NUR ---
MS/RN NOTE THE PATIENT ALERT AND ORIENTED X4. DENIES PAIN. RESPIRATION REGULAR AND UNLABORED. PATIENT IS IN ROOM AND DENIES SOB. RFA G 20 PATENT AND SALINE LOCKED. PATIENT IN NO APPARENT DISTRESS. BED LOW AND LOCKED. SIDE RAILS UP X3. CALL LIGHT WITHIN REACH. WILL CONTINUE TO MONITOR.
[2019-09-11] MEDS: MULTIVIT W/MINERALS 1 TAB TABLET PO SCH (08:38)
[2019-09-11] MEDS: ASCORBIC ACID 500 MG TABLET PO SCH (08:38)
[2019-09-11] MEDS: GABAPENTIN 300 MG CAPSULE PO SCH ×2 (08:39→17:51)
[2019-09-11] MEDS: CLOPIDOGREL BISULFATE 75 MG TABLET PO SCH (08:39)
[2019-09-11] MEDS: PANTOPRAZOLE 40 MG TABLET.DR PO SCH (08:39)
[2019-09-11] MEDS: DILTIAZEM HCL CD 120 MG PO SCH (08:39)
[2019-09-11] MEDS: CARVEDILOL 6.25 MG TABLET PO SCH (08:40)
[2019-09-11] MEDS: DOCUSATE SODIUM 100 MG CAPSULE PO SCH ×3 (08:42→17:00)
[2019-09-11] MEDS: POLYVINYL ALCOHOL 15 ML BOTTLE LEFTEYE SCH ×3 (08:46→17:52)
[2019-09-11] MEDS: MUPIROCIN OINT 2% 22 GM TUBE SCH ×2 (08:47→20:24)
[2019-09-11 09:17] VITALS: BP 151/70
[2019-09-11] MEDS: HYDROCODONE/APAP 10/325MG 1 EA TABLET PO PRN (12:44)
[2019-09-11] MEDS: DIGOXIN 0.25 MG TABLET PO SCH (12:45)
[2019-09-11] MEDS: SOD FERRIC GLUC 125 MG in IV NS 0.9% 100 ML IV SCH (15:05)
[2019-09-11 15:57] VITALS: BP 108/65
--- NOTE | 2019-09-11 17:00 | NUR ---
MS/RN NOTE THE PATIENT REFUSED BLOOD DRAW FOR PT INR DESPITE EXPLAINING RISKS AND BENEFITS. NAOMI MARTINEZ IS MADE AWARE.
--- NOTE | 2019-09-11 18:23 | NUR ---
MS/RN NOTE THE PATIENT IS ALERT AND ORIENTED X4. DENIES PAIN. THE PATIENT IN NO APPARENT DISTRESS. IN ROOM AIR AND SATURATION IS AT 97%. RESPIRATION REGULAR AND UNLABORED. LEXI MIDLINE G 18 PATENT AND SALINE LOCKED. BED LOW AND LOCKED. SIDE RAILS X3. CALL LIGHT WITHIN REACH. WILL ENDORSE TO COMPANY ACCOUNTANT.
[2019-09-11 19:30] VITALS: BP 103/67
[2019-09-11 20:00] VITALS: BP 103/67
[2019-09-11] MEDS: ACETAMINOPHEN 325 MG TABLET PO PRN (20:09)
[2019-09-11] MEDS: diphenhydrAMINE HCL 25 MG CAPSULE PO PRN (21:08)
[2019-09-11] MEDS: ATORVASTATIN 10 MG TABLET PO SCH (21:08)
[2019-09-11] MEDS: SENNOSIDES 8.6 MG TABLET PO SCH (21:08)
--- NOTE | 2019-09-12 06:41 | NUR ---
MS RN NOTES PATIENT IN BED, ASLEEP, ALERT AND ORIENTED X 4. BREATHING EVEN AND UNLABORED ON ROOM AIR. SHOWS NO SIGNS OF ACUTE RESPIRATORY DISTRESS, NO ACUTE PAIN. IV ON LEXI MIDLINE ITS CLEAN DRY AND INTACT. SHOWS NO SIGNS OF INFILTRATION, NO REDNESS. ALL DUE MEDICATIONS GIVEN. SAFETY PRECAUTIONS IN PLACE. BED IN LOWEST POSITION, LOCKED, AND CALL LIGHT KEPT WITHIN REACH. WILL ENDORSE TO ONCOMING NURSE.
[2019-09-12 08:00] VITALS: BP 105/46
[2019-09-12] MEDS: CARVEDILOL 6.25 MG TABLET PO SCH (09:00)
[2019-09-12] MEDS: DOCUSATE SODIUM 100 MG CAPSULE PO SCH ×3 (09:47→16:26)
[2019-09-12] MEDS: MULTIVIT W/MINERALS 1 TAB TABLET PO SCH (09:47)
[2019-09-12] MEDS: GABAPENTIN 300 MG CAPSULE PO SCH ×2 (09:47→16:26)
[2019-09-12] MEDS: CLOPIDOGREL BISULFATE 75 MG TABLET PO SCH (09:47)
[2019-09-12] MEDS: ASCORBIC ACID 500 MG TABLET PO SCH (09:47)
[2019-09-12] MEDS: PANTOPRAZOLE 40 MG TABLET.DR PO SCH (09:47)
[2019-09-12] MEDS: DILTIAZEM HCL CD 120 MG PO SCH (09:48)
[2019-09-12] MEDS: POLYVINYL ALCOHOL 15 ML BOTTLE LEFTEYE SCH ×3 (09:51→17:01)
[2019-09-12] MEDS: MUPIROCIN OINT 2% 22 GM TUBE SCH ×2 (09:51→21:50)
--- NOTE | 2019-09-12 12:31 | NUR ---
MS/RN NOTE DR MARIN IS MADE AWARE OF PT/INR RESULT WITH NEW ORDER OF COUMADIN 2.5 MG QD. NOTED AND CARRIED OUT.
[2019-09-12] MEDS: DIGOXIN 0.25 MG TABLET PO SCH (14:04)
[2019-09-12] MEDS: SOD FERRIC GLUC 125 MG in IV NS 0.9% 100 ML IV SCH (14:40)
[2019-09-12 16:00] VITALS: BP 140/50
[2019-09-12] MEDS: WARFARIN SODIUM 2.5 MG TABLET PO SCH (17:00)
--- NOTE | 2019-09-12 19:04 | NUR ---
MS/RN NOTE THE PATIENT IS ALERT AND ORIENTED X4. DENIES PAIN. IN ROOM AIR AND SATURATION IS AT 97%. DENIES SOB. RESPIRATION REGULAR AND UNLABORED. THE PATIENT IS IN NO APPARENT DISTRESS. LEXI MIDLINE G 18 PATENT AND SALINE LOCKED. BED LOW AND LOCKED. SIDE RAILS UP X3. CALL LIGHT WITHIN REACH. WILL ENDORSE TO NIGHTS SHIFT.
--- NOTE | 2019-09-12 19:10 | NUR ---
MS/RN OPENING NOTES: RECEIVED PATIENT IN BED, AWAKE, ALERT AND ORIENTED X 4. BREATHING EVEN AND UNLABORED ON ROOM AIR. SHOWS NO SIGNS OF ACUTE RESPIRATORY DISTRESS, NO ACUTE PAIN. IV ON LEXI MIDLINE ITS CLEAN DRY AND INTACT. SHOWS NO SIGNS OF INFILTRATION, NO REDNESS. SAFETY PRECAUTIONS IN PLACE. BED IN LOWEST POSITION, LOCKED, AND CALL LIGHT KEPT WITHIN REACH. WILL CONTINUE TO MONITOR.
[2019-09-12 20:00] VITALS: BP 111/62
[2019-09-12] MEDS: SENNOSIDES 8.6 MG TABLET PO SCH (21:34)
[2019-09-12] MEDS: ATORVASTATIN 10 MG TABLET PO SCH (21:34)
[2019-09-12] MEDS: ACETAMINOPHEN 325 MG TABLET PO PRN (21:47)
--- NOTE | 2019-09-12 21:47 | NUR ---
MS/RN NOTES: PT COMPLAINED OF HEADACHE. REQUESTED FOR TYLENOL. ADMINISTERED TYLENOL PO 650MG ORDERED FOR MILD PAIN. TOLERATED WELL. VS STABLE AND WNL. WILL CONTINUE TO MONITOR.
[2019-09-13] MEDS: HYDROCODONE/APAP 10/325MG 1 EA TABLET PO PRN (04:15)
--- NOTE | 2019-09-13 04:22 | NUR ---
MS/RN NOTES: PT WAS COMPLAINING OF 8 OUT OF 10 PAIN OM HER RADHA. KNEES. REQUESTED FOR PAIN MEDICINE. VS TAKEN. BP: 113/73 HR:83. ADMINISTERED NORCO 10/325 PO Q6 ORDERED FOR PAIN. TOLERATED WELL. WILL CONTINUE TO MONITOR ACCORDINGLY.
--- NOTE | 2019-09-13 06:52 | NUR ---
MS/RN CLOSING NOTES: PATIENT IN BED, RESTING COMFORTABLY. REMAINS ALERT AND ORIENTED X 4. BREATHING EVEN AND UNLABORED ON ROOM AIR. SHOWS NO SIGNS OF ACUTE RESPIRATORY DISTRESS, NO ACUTE PAIN. IV ON LEXI MIDLINE ITS CLEAN DRY AND INTACT. SHOWS NO SIGNS OF INFILTRATION, NO REDNESS. SAFETY PRECAUTIONS IN PLACE. BED IN LOWEST POSITION, LOCKED, AND CALL LIGHT KEPT WITHIN REACH. WILL ENDORSE TO DAY SHIFT FOR PATSY.
--- NOTE | 2019-09-13 07:48 | NUR ---
MS RN OPENING NOTES PATIENT IN BED RESTING COMFORTABLY. PATIENT IN NO ACUTE DISTRESS. NO SOB NOTED. PATIENT BREATHING IS EVEN AND UNLABORED. PATIENT RESPONSIVE TO TACTILE AND VERBAL STIMULI. PATIENT BED ALARM IS ON. SAFETY PRECAUTIONS IN PLACE. PATIENT BED IS LOCKED AND IN LOWEST POSITION. CALL LIGHT WITHIN REACH. WILL CONTINUE TO MONITOR.
[2019-09-13 08:00] VITALS: BP 106/67
[2019-09-13] MEDS: ASCORBIC ACID 500 MG TABLET PO SCH (08:21)
[2019-09-13] MEDS: DILTIAZEM HCL CD 120 MG PO SCH (08:21)
[2019-09-13 08:22] VITALS: BP 106/67
[2019-09-13] MEDS: CARVEDILOL 6.25 MG TABLET PO SCH (08:22)
[2019-09-13] MEDS: MULTIVIT W/MINERALS 1 TAB TABLET PO SCH (08:22)
[2019-09-13] MEDS: DOCUSATE SODIUM 100 MG CAPSULE PO SCH ×3 (08:22→17:18)
[2019-09-13] MEDS: MUPIROCIN OINT 2% 22 GM TUBE SCH (08:22)
[2019-09-13] MEDS: PANTOPRAZOLE 40 MG TABLET.DR PO SCH (08:22)
[2019-09-13] MEDS: GABAPENTIN 300 MG CAPSULE PO SCH ×2 (08:22→17:16)
[2019-09-13] MEDS: POLYVINYL ALCOHOL 15 ML BOTTLE LEFTEYE SCH ×3 (08:24→17:19)
[2019-09-13 08:36] LABS: BASOPHILS # (AUTO) 0.1 /CMM (0.0-0.2); BASOPHILS % (AUTO) 0.9 % (0.0-2.0); EOSINOPHILS % (AUTO) 2.8 % (0.0-6.0); HEMATOCRIT 37 % (33-45); HEMOGLOBIN 11.8 g/dL (11.5-14.8); LYMPHOCYTES # (AUTO) 1.3 /CMM (0.8-4.8); LYMPHOCYTES % (AUTO) 21.6 % (20.0-44.0); MEAN CORPUSCULAR HGB CONC 32 g/dl (31.0-36.0); MEAN CORPUSCULAR VOLUME 84 fL (82-100); MONOCYTES # (AUTO) 0.4 /CMM (0.1-1.30); NEUTROPHILS # (AUTO) 4.1 /CMM (1.8-8.9); NEUTROPHILS % (AUTO) 67.7 % (43.0-81.0); PLATELET COUNT (AUTO) 238 /CMM (150-450); RED BLOOD CELL COUNT(AUTO) 4.37 MIL/uL (4.0-5.2); WHITE BLOOD COUNT (AUTO) 6.1 K/uL (4.3-11.0)
[2019-09-13 09:39] LABS: CALCIUM, SERUM 9.3 mg/dL (8.5-10.1); POTASSIUM 4.1 mmol/L (3.5-5.1)
[2019-09-13] MEDS: DIGOXIN 0.25 MG TABLET PO SCH (12:50)
--- NOTE | 2019-09-13 16:00 | NUR ---
MS RN NOTE PATIENT REFUSED SKIN ASSESSMENT. EDUCATED RISKS VS BENEFITS. PATIENT CONTINUED TO REFUSE.
[2019-09-13] MEDS: WARFARIN SODIUM 2.5 MG TABLET PO SCH (17:18)
--- NOTE | 2019-09-13 17:35 | NUR ---
MS RN NOTE PHARMACY RECOMMENDATION TO CONTACT DR. OROZCO ABOUT POSSIBLE CHANGE IN COUMADIN HOME DOSE FOR DISCHARGE DUE TO INR TRENDING UP. SPOKE WITH DR. OROZCO MADE AWARE TO MD OF INR AND PER MD NO NEED FOR ADJUSTMENT FOR COUMADIN AND STATES " ITS CONTROLLED AND CAN FOLLOW UP WITH PCP FOR ADJUSTMENT".
--- NOTE | 2019-09-13 19:35 | NUR ---
MS RING STAMPER NOTE PATIENT MEDICALLY CLEARED FOR DISCHARGE. PATIENT IN NO ACUTE DISTRESS. NO SOB NOTED. PATIENT BREATHING IS EVEN AND UNLABORED. DC INSTRUCTIONS PROVIDED. PATIENT VERBALIZED UNDERSTANDING. PATIENT SIGNED BELONGINGS LIST AND HAS BELONGINGS WITH HER. PATIENT REFUSED SKIN ASSESSMENT. EDUCATED RISKS VS BENEFITS. PATIENT CONTINUED TO REFUSE. REMOVED PATIENT IV AND ID BAND. PATIENT REPORT GIVEN TO ODALIS ARMSTRONG AT [facility]. PATIENT KEPT CLEAN, DRY AND COMFORTABLE THROUGHOUT SHIFT. PATIENT NEEDS AND CONCERNS ADDRESSED. PATIENT WENT BY AMBULANCE WITH TWO DERMATOLOGY PHYSICIAN TO SNF. MD AWARE OF DISCHARGE.
== END 2019-09-13 19:40 | DRG 308 ==
LOC: ER 13:36 → TELE 15:38 → TELE1 09-07 15:24 → TELE 09-09 10:32 → MED 09-10 09:09
PROVIDERS: ADMIT Nurse Practitioner Acute Care; ATTEND Nurse Practitioner Acute Care
PROC: 05HB33Z Insertion of Infusion Device into Right Basilic Vein, Percutaneous Approach (ICD-10-PCS; principal; 2019-09-09)
DX: I48.0 Paroxysmal atrial fibrillation (principal); N17.0 Acute kidney failure with tubular necrosis; I50.33 Acute on chronic diastolic (congestive) heart failure; E44.0 Moderate protein-calorie malnutrition; E03.9 Hypothyroidism, unspecified; I25.10 Atherosclerotic heart disease of native coronary artery without angina pectoris; E78.5 Hyperlipidemia, unspecified; M19.90 Unspecified osteoarthritis, unspecified site; K21.9 Gastro-esophageal reflux disease without esophagitis; Z86.73 Personal history of transient ischemic attack (TIA), and cerebral infarction without residual deficits; Z79.899 Other long term (current) drug therapy; Z88.8 Allergy status to other drugs, medicaments and biological substances; G89.29 Other chronic pain; Z74.09 Other reduced mobility; I08.0 Rheumatic disorders of both mitral and aortic valves; E05.90 Thyrotoxicosis, unspecified without thyrotoxic crisis or storm; E61.1 Iron deficiency; M17.12 Unilateral primary osteoarthritis, left knee; Z79.02 Long term (current) use of antithrombotics/antiplatelets; Z79.01 Long term (current) use of anticoagulants; I27.20 Pulmonary hypertension, unspecified; I95.9 Hypotension, unspecified; I11.0 Hypertensive heart disease with heart failure
CPT/HCPCS: 36415; 71045-TC; 73564-TC; 76536-TC; 80048-TC; 80053-TC; 80061-TC; 83540-TC; 83735-TC; 83880; 84100-TC; 84439-TC; 84443-TC; 84484-TC; 85025-TC; 85610-TC; 85730-TC; 87081-TC; 93307-TC; 93970-TC; 97110-TC; 97116-TC; 97530-TC; G0378; J1160; J2405; J2916; J3490; J7030; J7040; Q0163; U0003-CS

== ENCOUNTER 2020-12-08 05:36 | Inpatient (IN) | payer MEDICARE, MEDICAID ==
[~2020-12-08] VITALS: Ht 165.1 cm; Wt 75.9 kg
[~2020-12-08 05:36] MED LIST changes: -APIX5TAB4 PO; +ASCO-352 PO; +DIPH25CA51 PO; +DOCU-141 PO; +Digoxin PO; +FERR325T23 PO; -FLUT16SP BNOSTRILS; +HYDR-4384 PO; -LOSA100T31 PO; +MELA5TAB PO; +MULT-447 PO; -ONDA4TAB11 PO; +PANT40TA2 PO; +POLY15DR40 EACHEYE; +POLY15DR40 LEFTEYE; +POLY17PO4 PO; +SENN-261 PO; -TRAM50TA2 PO; +WARF-58 PO
--- NOTE | 2020-12-08 05:54 | NUR ---
PT AAOX4. ASSYRIAN AND GREENLANDIC SPEAKING. 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 ALSO, C/O MINOR SOB SINCE THE PAIN STARTED. RR EVEN AND UNLABORED, SAT 94%. PT HAS HX OF COVID 19, ON AMIO, TRAMADOL, AND METOPROLOL. PT PLACED IN BED 8 ON MECHANICAL ESTIMATOR AND PULSE OX. EMT AT BEDSIDE FOR EKG. PT NOTED TO BE TACHY @120'S UPON ARRIVAL. AWAITING ER MD FOR EVAL AND ORDERS. WILL START AND IV AND DRAW BLOOD.
--- NOTE | 2020-12-08 06:00 | NUR ---
PT PROVIDED WITH WARM BLANKETS FOR COMFORT.
--- NOTE | 2020-12-08 06:06 | NUR ---
blood collected and sent to lab
[2020-12-08] MEDS ORDERED: CARVEDILOL 6.25 MG TABLET ONE (06:22)
[2020-12-08] MEDS ORDERED: DIGOXIN 0.25 MG TABLET ONE (06:22)
[2020-12-08] MEDS ORDERED: FUROSEMIDE 40 MG TABLET ONE (06:23)
[2020-12-08] MEDS ORDERED: FUROSEMIDE 40 MG/4 ML VIAL ONE (06:26)
[2020-12-08] MEDS ORDERED: DIGOXIN 0.25 MG TABLET PO ONE (06:30)
[2020-12-08] MEDS ORDERED: CARVEDILOL 6.25 MG TABLET PO ONE (06:30)
[2020-12-08] MEDS ORDERED: FUROSEMIDE 40 MG/4 ML VIAL IV ONE (06:30)
--- NOTE | 2020-12-08 07:00 | NUR ---
MRSA SWAB COLLECTED AND SENT TO LAB. PATIENT'S BELONGINGS LIST DONE.
--- NOTE | 2020-12-08 07:35 | NUR ---
MOVE SHEET SUBMITTED AND CALLED FOR BED.
--- NOTE | 2020-12-08 08:03 | NUR ---
THE PATIENT IS RECEIVED IN ER BED #8. IN ROOM AIR AND DENIES SOB. RESPIRATION REGULAR AND UNLABORED. DENIES PAIN. ATTACHED TO THE MONITOR. WARM BLANKET PROVIDED FOR COMFORT. WILL CONTINUE TO MONITOR THE PATIENT.
[2020-12-08 08:06] LABS: BASOPHILS % (AUTO) 0.3 % (0.0-2.0); EOSINOPHILS % (AUTO) 1.5 % (0.0-6.0); HEMATOCRIT 38 % (33-45); HEMOGLOBIN 12.1 g/dL (11.5-14.8); LYMPHOCYTES # (AUTO) 1.5 K/uL (0.8-4.8); LYMPHOCYTES % (AUTO) 18.5 % (20.0-44.0); MEAN CORPUSCULAR HGB CONC 32 g/dl (31.0-36.0); MEAN CORPUSCULAR VOLUME 85 fL (82-100); MONOCYTES # (AUTO) 0.4 K/uL (0.1-1.30); NEUTROPHILS # (AUTO) 5.9 K/uL (1.8-8.9); NEUTROPHILS % (AUTO) 74.7 % (43.0-81.0); PLATELET COUNT (AUTO) 239 K/uL (150-450); RED BLOOD CELL COUNT(AUTO) 4.39 MIL/uL (4.0-5.2); WHITE BLOOD COUNT (AUTO) 7.9 K/uL (4.3-11.0)
[2020-12-08 08:21] LABS: CALCIUM, SERUM 8.9 mg/dL (8.5-10.1); CARBON DIOXIDE 25 mmol/L (21-32); CHLORIDE 105 mmol/L (98-107); GLUCOSE 83 mg/dL (74-106); POTASSIUM 4.4 mmol/L (3.5-5.1); SODIUM SERUM 140 mmol/L (136-145); UREA NITROGEN, BLOOD 28 mg/dL (7-18)
[2020-12-08] MEDS ORDERED: APIX5TAB PO (08:23)
[2020-12-08] MEDS ORDERED: GABA-532 PO (08:23)
[2020-12-08] MEDS ORDERED: METO25TA6 PO (08:23)
[2020-12-08] MEDS ORDERED: POTA10TA10 PO (08:23)
[2020-12-08] MEDS ORDERED: FURO20TA4 PO (08:23)
[2020-12-08] MEDS ORDERED: MIDO5TAB4 PO (08:26)
[2020-12-08] MEDS ORDERED: POLY15DR40 EACHEYE (08:26)
--- NOTE | 2020-12-08 08:44 | NUR ---
[facility] CALLED RIDER TICKET WORKER PAGED.
[2020-12-08] MEDS ORDERED: METOPROLOL TARTRATE INJ 5 MG/5 ML AMPUL ONE ×2 (09:38→09:56)
--- NOTE | 2020-12-08 09:45 | NUR ---
DR FISHER MADE AWARE THAT THE PATIENT`S HR IS 120. RECEIVED AN ORDER OF LOPRESSOR 5 MG IV PUSH ONCE. THE ORDER IS READ BACK, VERIFIED. NOTED AND CARRIED OUT. WILL CONTINUE TO MONITOR THE PATIENT.
[2020-12-08] MEDS ORDERED: METOPROLOL TARTRATE INJ 5 MG/5 ML AMPUL IV ONE ×2 (10:00)
--- NOTE | 2020-12-08 10:00 | NUR ---
RECEIVED AN ORDER FROM DR FISHER FOR ANOTHER DOSE OF METOPROLOL 5 MG IV PUSH ONCE. THE ORDER IS READ BACK, VERIFIED. NOTED AND CARRIED OUT. WILL CONTINUE TO MONITOR THE PATIENT.
--- NOTE | 2020-12-08 10:01 | NUR ---
REPORT GIVEN TO NURSE PINK
--- NOTE | 2020-12-08 10:02 | NUR ---
ROOM 323-1
--- NOTE | 2020-12-08 11:09 | NUR ---
RN NOTE PT IN ROOM AND MADE COMFORTABLE. V/S CHECKED. IV PRESENT AND FLUSHES WELL. LABS AND ORDERS REVIEWED. A/O X4 AND BENGALI SPEAKING. NO COMPLAINT OF PAIN OR NAUSEA. ON 2L NC WITH SOB PRESENT. WILL CONTINUE TO MONITOR.
[2020-12-08] MEDS ORDERED: Z GUARD REMEDY 2 OZ OINT TP PRN (13:00)
[2020-12-08] MEDS ORDERED: ONDANSETRON HCL/PF 4 MG/2 ML VIAL IVP PRN (13:00)
[2020-12-08] MEDS ORDERED: MAG HYDROX/AL HYDROX/SIMETH 30 ML UDC PO PRN (13:00)
[2020-12-08] MEDS ORDERED: MAGNESIUM HYDROXIDE 30 ML UDC PO PRN (13:00)
[2020-12-08] MEDS: DILTIAZEM HCL 30 MG TABLET PO SCH ×2 (18:05→23:52)
[2020-12-08] MEDS: ENSURE ENLIVE 237 ML LIQUID (VANILLA) PO SCH (18:05)
--- NOTE | 2020-12-08 18:50 | NUR ---
RN CLOSING NOTE PT AWAKE IN BED RESTING. ON 2L NC WITH SOB PRESENT. NO RESPIRATORY DISTRESS. A/O X4 AND INDONESIAN SPEAKING. NO COMPLAINT OF PAIN OR NAUSEA. ON PARENT PARTNER. EDEMA PRESENT ON RLE, VENOUS DUPLEX ORDERED. ON BEDREST. DIAPER PRESENT, BEDPAN AT BEDSIDE. SKIN IS INTACT. FALL RISK, BED ALARM ON. IV PRESENT ON L AC 20G AND FLUSHES WELL. SALINE LOCKED. LABS AND ORDERS REVIEWED. SAFETY MEASURES IN PLACE. SIDE RAILS RAISED. BED LOWERED. CALL LIGHT WITHIN REACH. WILL CONTINUE TO MONITOR.
--- NOTE | 2020-12-08 20:04 | NUR ---
CARDIOVASCULAR SURGEON OPENING NOTE PT A/OX4; ABLE TO MAKE NEEDS KNOWN. ON O2 VIA 2LPM; TOLERATING WELL WITH NO SOB. EXTERNAL CARDIAC TELE MONITOR READS AFIB 112; ALARM. DENIES PAIN OR DISCOMFORT AT THIS TIME. LAC #20G S/L; PATENT AND INTACT. SAFETY MEASURES IN PLACE: BED IN LOWEST LOCKED POSITION, SIDE RAILS UP X2, CALL LIGHT WITHIN EASY REACH; BED ALARMS ON. PT IN STABLE CONDITION, WILL CONT. PLAN OF CARE.
[2020-12-08 20:45] VITALS: BP 110/77
[2020-12-08] MEDS: ZOLPIDEM TARTRATE 5 MG TABLET PO PRN (21:29)
[2020-12-08] MEDS: ENOXAPARIN SODIUM 40 MG/0.4 ML DISP.SYRIN SQ SCH (23:51)
[2020-12-08 23:56] VITALS: BP 112/73
[2020-12-09] MEDS: ACETAMINOPHEN 325 MG TABLET PO PRN ×2 (02:04→19:49)
[2020-12-09 04:19] VITALS: BP 138/67
[2020-12-09] MEDS: DILTIAZEM HCL 30 MG TABLET PO SCH ×3 (05:38→17:12)
--- NOTE | 2020-12-09 07:14 | NUR ---
ACCOUNTANT COST CLOSING NOTE PT A/OX4; ABLE TO MAKE NEEDS KNOWN. ON O2 VIA 2LPM; TOLERATING WELL WITH NO SOB. EXTERNAL CARDIAC TELE MONITOR READS AFIB AT 82. DENIES PAIN OR DISCOMFORT AT THIS TIME. RFA #20G S/L; PATENT AND INTACT. SAFETY MEASURES IN PLACE: BED IN LOWEST LOCKED POSITION, SIDE RAILS UP X2, CALL LIGHT WITHIN EASY REACH; BED ALARMS ON. PT IN STABLE CONDITION, ENDORSED PLAN OF CARE TO ONCOMING MORNING RN.
[2020-12-09] MEDS: PANTOPRAZOLE 40 MG TABLET.DR PO SCH (08:08)
[2020-12-09] MEDS: FUROSEMIDE 40 MG/4 ML VIAL IV SCH (08:08)
[2020-12-09] MEDS: ENSURE ENLIVE 237 ML LIQUID (VANILLA) PO SCH ×3 (08:09→16:12)
[2020-12-09 08:31] VITALS: BP_SYST 108; BP_SYST 139; BP_DIAS 66; BP_DIAS 92
[2020-12-09] MEDS ORDERED: ASPIRIN 81 MG TAB.CHEW PO SCH (09:00)
[2020-12-09 13:13] LABS: BASOPHILS % (AUTO) 0.3 % (0.0-2.0); EOSINOPHILS % (AUTO) 1.3 % (0.0-6.0); HEMATOCRIT 39 % (33-45); HEMOGLOBIN 12.6 g/dL (11.5-14.8); LYMPHOCYTES # (AUTO) 1.4 K/uL (0.8-4.8); LYMPHOCYTES % (AUTO) 18.7 % (20.0-44.0); MEAN CORPUSCULAR HGB CONC 32 g/dl (31.0-36.0); MEAN CORPUSCULAR VOLUME 85 fL (82-100); MONOCYTES # (AUTO) 0.7 K/uL (0.1-1.30); MONOCYTES % (AUTO) 9.6 % (2.0-12.0); NEUTROPHILS # (AUTO) 5.1 K/uL (1.8-8.9); NEUTROPHILS % (AUTO) 70.1 % (43.0-81.0); PLATELET COUNT (AUTO) 275 K/uL (150-450); RED BLOOD CELL COUNT(AUTO) 4.59 MIL/uL (4.0-5.2); WHITE BLOOD COUNT (AUTO) 7.3 K/uL (4.3-11.0)
[2020-12-09 13:33] LABS: CALCIUM, SERUM 9.4 mg/dL (8.5-10.1); CREATININE 1.3 mg/dL (0.6-1.3); MAGNESIUM 2.2 mg/dL (1.8-2.4); PHOSPHORUS 4.2 mg/dL (2.5-4.9); POTASSIUM 4.5 mmol/L (3.5-5.1)
[2020-12-09 13:44] LABS: THYROID STIMULATING HORMONE 0.015 uIU/mL (0.358-3.74)
[2020-12-09 15:47] VITALS: BP 115/73
--- NOTE | 2020-12-09 18:21 | NUR ---
SALON MANAGER CLOSING NOTE PATIENT RESTING IN BED, PT A/OX4; ABLE TO MAKE NEEDS KNOWN. PATIENT IS BREATHING EVENLY AND NONLABORED ON O2 VIA 2LPM; TOLERATING WELL WITH NO SOB. EXTERNAL CARDIAC TELE MONITOR READS AFIB 90S; MD ALARM. DENIES PAIN OR DISCOMFORT AT THIS TIME. LAC #20G S/L; PATENT AND INTACT. ALL MEDICATIONS GIVEN. SAFETY MEASURES IN PLACE: BED IN LOWEST LOCKED POSITION, SIDE RAILS UP X2, CALL LIGHT WITHIN EASY REACH; BED ALARMS ON. PT IN STABLE CONDITION, WILL ENDORSE TO ONCOMING SHIFT
--- NOTE | 2020-12-09 19:30 | NUR ---
catechist opening notes Received Pt from morning nurse. Pt is laying in bed comfortably watching TV. Pt is alert and orientedX3 and anxious. Respiration is on 2 L NC. No SOB. No s/s of distress noted. Tele monitor showed controlled a-fib with HR at 83. IV site at RFA#20 is clean, intact and flush easily, SL. Safety precautions is maintained. Pt verbalized understanding. Bed at low position, brakes locked, bed alarm is on, side rails upX2, and call light is within reach. Will continue to monitor.
--- NOTE | 2020-12-09 19:49 | NUR ---
radiation monitor notes Pt is complaining of mild generalized pain and requesting pain med. Administered tylenol 650mg/po as ordered for mild pain. safety precautions is maintained. Will continue to monitor.
[2020-12-09 20:00] VITALS: BP 115/74
--- NOTE | 2020-12-09 20:30 | NUR ---
design engineering manager notes Pt stated that tylenol is help my pain. Pt is resting in bed comfortably and no more pain.
[2020-12-09] MEDS: ENOXAPARIN SODIUM 40 MG/0.4 ML DISP.SYRIN SQ SCH (21:33)
[2020-12-09] MEDS: ZOLPIDEM TARTRATE 5 MG TABLET PO PRN (21:34)
--- NOTE | 2020-12-09 21:34 | NUR ---
senior property manager notes Pt is having insomnia and requesting sleeping pill. Administered ambien 5 mg/po as ordered for sleeping per pt requested. safety precautions is maintained. will continue to monitor.
--- NOTE | 2020-12-09 22:55 | NUR ---
RN ms notes Pt refused to have scd compression. explained and informed risks and benefits. Pt keep refusing.
[2020-12-10] VITALS: BP_SYST 111; BP_SYST 127; BP_DIAS 64; BP_DIAS 68
[2020-12-10] MEDS: DILTIAZEM HCL 30 MG TABLET PO SCH ×2 (00:18→05:05)
[2020-12-10 04:00] VITALS: BP 127/68
[2020-12-10 06:34] LABS: BASOPHILS # (AUTO) 0.1 K/uL (0.0-0.2); BASOPHILS % (AUTO) 0.8 % (0.0-2.0); EOSINOPHILS % (AUTO) 1.7 % (0.0-6.0); HEMATOCRIT 39 % (33-45); HEMOGLOBIN 12.8 g/dL (11.5-14.8); LYMPHOCYTES # (AUTO) 1.7 K/uL (0.8-4.8); LYMPHOCYTES % (AUTO) 23.1 % (20.0-44.0); MEAN CORPUSCULAR HGB CONC 33 g/dl (31.0-36.0); MEAN CORPUSCULAR VOLUME 84 fL (82-100); MONOCYTES # (AUTO) 0.7 K/uL (0.1-1.30); MONOCYTES % (AUTO) 9.4 % (2.0-12.0); NEUTROPHILS # (AUTO) 4.8 K/uL (1.8-8.9); PLATELET COUNT (AUTO) 252 K/uL (150-450); RED BLOOD CELL COUNT(AUTO) 4.63 MIL/uL (4.0-5.2); WHITE BLOOD COUNT (AUTO) 7.4 K/uL (4.3-11.0)
--- NOTE | 2020-12-10 06:38 | NUR ---
sales professional bilingual opening notes Pt is resting in bed comfortably. Pt is alert and orientedX3. Respiration is on 2 L NC. No SOB. No s/s of distress noted. Tele monitor showed controlled a-fib with HR at 89. IV site at RFA#20 is clean, intact and flush easily, SL. Safety precautions is maintained. Kept Pt clean, dry and clean. All needs met and attended. Bed at low position, brakes locked, bed alarm is on, side rails upX2, and call light is within reach. Will endorse to morning nurse for PATSY.
[2020-12-10 07:18] LABS: CALCIUM, SERUM 9.6 mg/dL (8.5-10.1); CREATININE 1.2 mg/dL (0.6-1.3); MAGNESIUM 2.3 mg/dL (1.8-2.4); PHOSPHORUS 4.8 mg/dL (2.5-4.9); POTASSIUM 4.6 mmol/L (3.5-5.1)
--- NOTE | 2020-12-10 07:20 | NUR ---
ROBOTIC WELD TECHNICIAN OPENING NOTE RECEIVED PATIENT RESTING IN BED, PT A/OX4; ABLE TO MAKE NEEDS KNOWN. PATIENT IS BREATHING EVENLY AND NONLABORED ON O2 VIA 2LPM; TOLERATING WELL WITH NO SOB. EXTERNAL CARDIAC TELE MONITOR READS AFIB 90S; MD ALARM. DENIES PAIN OR DISCOMFORT AT THIS TIME. LAC #20G S/L; PATENT AND INTACT. SAFETY MEASURES IN PLACE: BED IN LOWEST LOCKED POSITION, SIDE RAILS UP X2, CALL LIGHT WITHIN EASY REACH; BED ALARMS ON. PT IN STABLE CONDITION, WILL CONTINUE TO MONITOR
[2020-12-10] MEDS: PANTOPRAZOLE 40 MG TABLET.DR PO SCH (08:09)
[2020-12-10] MEDS: FUROSEMIDE 40 MG/4 ML VIAL IV SCH (08:10)
[2020-12-10] MEDS: ENSURE ENLIVE 237 ML LIQUID (VANILLA) PO SCH ×3 (08:10→16:05)
[2020-12-10 08:34] VITALS: BP 12/70
[2020-12-10] MEDS: ACETAMINOPHEN 325 MG TABLET PO PRN ×2 (10:14→20:32)
--- NOTE | 2020-12-10 10:14 | NUR ---
RN NOTE PATIENT COMPLAIN OF BACK PAIN, ASKED FOR PRN PAIN MEDICATION, VITALS WNL WILL GIVE PRN PAIN MEDICATION
[2020-12-10] MEDS: DILTIAZEM HCL CD 240 MG PO SCH (10:50)
[2020-12-10 16:39] VITALS: BP 118/66
--- NOTE | 2020-12-10 18:34 | NUR ---
MS RN CLOSING NOTE PATIENT RESTING IN BED, PT A/OX4; ABLE TO MAKE NEEDS KNOWN. PATIENT IS BREATHING EVENLY AND NONLABORED ON O2 VIA 2LPM; TOLERATING WELL WITH NO SOB. DENIES PAIN OR DISCOMFORT AT THIS TIME. LAC #20G S/L; PATENT AND INTACT. ALL MEDICATIONS GIVEN. SAFETY MEASURES IN PLACE: BED IN LOWEST LOCKED POSITION, SIDE RAILS UP X2, CALL LIGHT WITHIN EASY REACH; BED ALARMS ON. PT IN STABLE CONDITION, WILL ENDORSE TO ONCOMING SHIFT
--- NOTE | 2020-12-10 19:00 | NUR ---
RN ms opening notes Received Pt from morning nurse. Pt is resting in bed comfortably. Pt is alert and orientedX3. Respiration is normal in 2 L NC. No SOB. No S/S of distress noted. IV site at RFA# 20 is clean, intact, flushes easily and SL. Safety precautions is maintained. Bed at low position, brakes locked, bed alarm is on, side rails X2 and call light is within reach. Will continue to monitor.
[2020-12-10 20:00] VITALS: BP 126/57
[2020-12-10] MEDS: ENOXAPARIN SODIUM 40 MG/0.4 ML DISP.SYRIN SQ SCH (20:31)
--- NOTE | 2020-12-10 20:32 | NUR ---
RN ms notes Pt is complaining of mild generalized pain and requestine pain meds. administred tylenol 325mg/2 tabs/po as ordered for pain. Safety precautions is maintained. Will continue to monitor.
[2020-12-10 21:03] VITALS: BP 126/57
[2020-12-10] MEDS: ZOLPIDEM TARTRATE 5 MG TABLET PO PRN (21:30)
--- NOTE | 2020-12-10 21:30 | NUR ---
RN ms notes Pt is having insomnia and requesting sleeping pill. administered ambien 5 mg/1 tab/po as ordered for sleeping. safety precautions is maintained. Will continue to monitor.
--- NOTE | 2020-12-11 06:30 | NUR ---
RN ms closing notes Pt is resting in bed comfortably. Pt is alert and orientedX3. Respiration is on 2 L NC. No SOB. No s/s of distress noted. VS is stable. Routine meds were given as ordered. Safety precautions is maintained. Kept Pt clean, dry and clean. All needs met and attended. Bed at low position, brakes locked, bed alarm is on, side rails upX2, and call light is within reach. Will endorse to morning nurse for PATSY.
[2020-12-11 06:40] LABS: BASOPHILS % (AUTO) 0.4 % (0.0-2.0); EOSINOPHILS % (AUTO) 1.7 % (0.0-6.0); HEMATOCRIT 38 % (33-45); HEMOGLOBIN 12.3 g/dL (11.5-14.8); LYMPHOCYTES # (AUTO) 1.7 K/uL (0.8-4.8); LYMPHOCYTES % (AUTO) 21.8 % (20.0-44.0); MEAN CORPUSCULAR HGB CONC 33 g/dl (31.0-36.0); MEAN CORPUSCULAR VOLUME 85 fL (82-100); MONOCYTES # (AUTO) 0.7 K/uL (0.1-1.30); MONOCYTES % (AUTO) 8.7 % (2.0-12.0); NEUTROPHILS # (AUTO) 5.3 K/uL (1.8-8.9); NEUTROPHILS % (AUTO) 67.4 % (43.0-81.0); PLATELET COUNT (AUTO) 275 K/uL (150-450); RED BLOOD CELL COUNT(AUTO) 4.48 MIL/uL (4.0-5.2); WHITE BLOOD COUNT (AUTO) 7.8 K/uL (4.3-11.0)
--- NOTE | 2020-12-11 07:28 | NUR ---
MS RN OPENING NOTES RECEIVED PATIENT AWAKE IN BED IN NO ACUTE SIGNS OF DISTRESS. A/O X3-4. ABLE TO MAKE NEEDS KNOWN, DENIES PAIN OR ANY DISCOMFORTS AT THIS TIME. ON 02 VIA N/C @ 2LPM, TOLERATING WELL, BREATHING EVENLY AND NON-LABORED. IV SL ON RFA# 20G INTACT AND PATENT. SAFETY MEASURES IN PLACED: BED IN LOWEST LOCKED POSITION WIT SR UP X2. CALL LIGHT WITHIN REACH. WILL CONTINUE TO MONITOR PT ACCORDINGLY.
[2020-12-11 07:54] LABS: ALANINE AMINOTRANSFERASE 18 U/L (12-78); ALBUMIN 3.4 g/dL (3.4-5.0); ALKALINE PHOSPHATASE 191 U/L (46-116); ASPARTATE AMINOTRANSFERASE 17 U/L (15-37); BILIRUBIN,TOTAL 0.5 mg/dL (0.2-1.0); CARBON DIOXIDE 29 mmol/L (21-32); CHLORIDE 100 mmol/L (98-107); CREATININE 1.5 mg/dL (0.6-1.3); GLUCOSE 116 mg/dL (74-106); MAGNESIUM 2.4 mg/dL (1.8-2.4); PHOSPHORUS 4.3 mg/dL (2.5-4.9); POTASSIUM 5.1 mmol/L (3.5-5.1); SODIUM SERUM 137 mmol/L (136-145); TOTAL PROTEIN, SERUM 7.2 g/dL (6.4-8.2); UREA NITROGEN, BLOOD 73 mg/dL (7-18)
[2020-12-11 08:00] VITALS: BP 114/72
[2020-12-11] MEDS: PANTOPRAZOLE 40 MG TABLET.DR PO SCH (08:30)
[2020-12-11] MEDS: DILTIAZEM HCL CD 240 MG PO SCH (08:31)
[2020-12-11] MEDS: ENSURE ENLIVE 237 ML LIQUID (VANILLA) PO SCH ×3 (08:31→17:04)
[2020-12-11] MEDS: IV NS 0.9% 1,000 ML IV SCH ×2 (09:12→19:13)
[2020-12-11] MEDS: METOPROLOL TARTRATE 50 MG TABLET PO SCH ×2 (09:19→21:00)
[2020-12-11] MEDS: ACETAMINOPHEN 325 MG TABLET PO PRN (14:48)
[2020-12-11 16:00] VITALS: BP 155/59
--- NOTE | 2020-12-11 18:43 | NUR ---
MS RN CLOSING NOTES PATIENT IN BED AWAKE AND RESTING AT SEMI-LOZADA'S POSITION. A/O X3-4. ABLE TO MAKE NEEDS KNOWN. ON 02 VIA N/C @ 2LPM, TOLERATING WELL, BREATHING EVENLY AND NON-LABORED. IV ACCESS ON RFA# 20G, IVF OF NS @ 100 ML/HR INFUSING WELL, NO S/S OF INFILTRATIONS AT SITE NOTED. ALL NEEDS AND CARE PROVIDED WELL. SAFETY MEASURES IN PLACE: CALL LIGHT WITHIN REACH, SIDE RAILS UP X 2, BED LOCKED IN LOW POSITION, BED ALARM ON. WILL ENDORSE CO TO NATURAL HISTORY COLLECTIONS CURATOR NURSE
--- NOTE | 2020-12-11 19:30 | NUR ---
RN OPENING NOTE PATIENT IN BED AWAKE, A/O X 3, ABLE TO MAKE NEEDS KNOWN. PATIENT ON 2 L OF O2 SUPPLEMENTATION. NO RESPIRATORY DISTRESS OR SOB OBSERVED. PATIENT HAS A RFA 20 G WITH NS AT 100 ML/HR. PATIENT DOES NOT COMPLAIN OF ANY BOSCH AT THIS TIME. SAFETY MEASURES IN PLACE: BED LOCKED AND IN LOWEST POSITION, CALL LIGHT WITHIN REACH, SIDE RAILS UP. WILL MONITOR PATIENT CLOSELY.
[2020-12-11 20:00] VITALS: BP 110/59
[2020-12-11] MEDS: ENOXAPARIN SODIUM 40 MG/0.4 ML DISP.SYRIN SQ SCH (21:00)
[2020-12-11] MEDS: ZOLPIDEM TARTRATE 5 MG TABLET PO PRN (21:01)
--- NOTE | 2020-12-11 21:01 | NUR ---
RN NOTE PATIENT ASKED FOR ARIELLE, ADMINISTERED. WILL ASSESS MED EFFECTIVENESS AT A LATER TIME.
--- NOTE | 2020-12-11 21:12 | NUR ---
RN NOTE PATIENT REFUSED LOVENOX, EDUCATED PATIENT ON RISK AND BENEFITS RE MED. STILL REFUSED. LOPRESSOR HELD DT HR 57 BPM. WILL MONITOR PATIENT.
[2020-12-12] MEDS: ACETAMINOPHEN 325 MG TABLET PO PRN (03:24)
--- NOTE | 2020-12-12 03:29 | NUR ---
RN NOTE PATIENT'S RFA IV ACCESS INFILTRATED. ELEVATED EXTREMITY WITH A PILLOW AND APPLIED ICE PACK ON AFFECTED SITE. LFA 20 G NEWLY INSERTED, PATENT AND INTACT- SALINE LOCKED. Addendum: 12/12/20 at 0620 by JOHN ARDON RN TYLENOL GIVEN AT THIS TIME FOR GENERALIZED PAIN 0324
--- NOTE | 2020-12-12 06:24 | NUR ---
RN CLOSING NOTE PATIENT IN BED, AWAKE. PATIENT ABLE TO MAKE NEEDS KNOWN, ON 2 L O2 SUPPLEMENTATION, TOLERATING WELL, WITH MILD SOB, SATURATING 95-96%. PATIENT DOES NOT COMPLAIN OF ANY PAIN AT THIS TIME. PATIENT'S L FA 20 G SALINE LOCKED, PATENT AND INTACT. PATIENT IS ABLE TO MAKE NEEDS KNOWN. SAFETY MEASURES MAINTAINED. ALL NEEDS MET AND ATTENDED, ALL ORDERS CARRIED OUT. WILL ENDORSE TO DAY SHIFT NURSE FOR PATSY.
--- NOTE | 2020-12-12 07:26 | NUR ---
MS RN OPENING NOTES RECEIVED PATIENT IN BED AWAKE, A/O X3-4. ABLE TO MAKE NEEDS KNOWN, DENIES PAIN OR ANY DISCOMFORTS AT THIS TIME. ON 02 VIA N/C @ 2LPM, TOLERATING WELL, BREATHING EVENLY AND NON-LABORED. IV SL ON LFA# 20G INTACT AND PATENT. SAFETY MEASURES IN PLACED: BED IN LOWEST LOCKED POSITION WITH SR UP X2. HOB ELEVATED AND CALL LIGHT WITHIN REACH. WILL CONTINUE TO MONITOR PT ACCORDINGLY.
[2020-12-12] MEDS: PANTOPRAZOLE 40 MG TABLET.DR PO SCH (08:21)
[2020-12-12] MEDS: ENSURE ENLIVE 237 ML LIQUID (VANILLA) PO SCH ×3 (08:22→16:44)
[2020-12-12] MEDS: DILTIAZEM HCL CD 240 MG PO SCH (08:23)
[2020-12-12] MEDS: METOPROLOL TARTRATE 50 MG TABLET PO SCH ×2 (08:24→20:58)
[2020-12-12 08:53] VITALS: BP 107/64
[2020-12-12 10:08] LABS: BASOPHILS % (AUTO) 0.2 % (0.0-2.0); EOSINOPHILS % (AUTO) 1.3 % (0.0-6.0); HEMATOCRIT 37 % (33-45); HEMOGLOBIN 11.9 g/dL (11.5-14.8); LYMPHOCYTES # (AUTO) 1.8 K/uL (0.8-4.8); LYMPHOCYTES % (AUTO) 22.5 % (20.0-44.0); MEAN CORPUSCULAR HGB CONC 32 g/dl (31.0-36.0); MEAN CORPUSCULAR VOLUME 85 fL (82-100); MONOCYTES # (AUTO) 0.4 K/uL (0.1-1.30); NEUTROPHILS # (AUTO) 5.7 K/uL (1.8-8.9); PLATELET COUNT (AUTO) 248 K/uL (150-450); RED BLOOD CELL COUNT(AUTO) 4.33 MIL/uL (4.0-5.2)
[2020-12-12 10:37] LABS: ALBUMIN 3.3 g/dL (3.4-5.0); BILIRUBIN,TOTAL 0.3 mg/dL (0.2-1.0); CALCIUM, SERUM 8.9 mg/dL (8.5-10.1); CREATININE 1.2 mg/dL (0.6-1.3); MAGNESIUM 2.4 mg/dL (1.8-2.4); PHOSPHORUS 3.6 mg/dL (2.5-4.9); POTASSIUM 4.8 mmol/L (3.5-5.1); TOTAL PROTEIN, SERUM 6.9 g/dL (6.4-8.2)
[2020-12-12 16:08] VITALS: BP 98/65
--- NOTE | 2020-12-12 18:49 | NUR ---
MS RN CLOSING NOTES PATIENT IN BED WATCHING TV AT THIS TIME. HOB ELEVATED. A/O X3-4. ABLE TO MAKE NEEDS KNOWN. ON SUPPLEMENTAL 02 VIA N/C @ 2LPM, TOLERATING WELL, BREATHING EVENLY AND NON-LABORED. IV SL ON LFA# 20G, INTACT, PATENT AND FLUSHES WELL. ALL NEEDS AND CARE PROVIDED WELL. SAFETY MEASURES IN PLACE: CALL LIGHT WITHIN REACH, SIDE RAILS UP X 2, BED LOCKED IN LOW POSITION, BED ALARM ON. WILL ENDORSE PATSY TO POLISHING WHEEL REPAIRER NURSE
--- NOTE | 2020-12-12 19:20 | NUR ---
MS RN OPENING NOTE RECEIVED PT AWAKE IN BED, A/OX4, ABLE TO VERBALIZE NEEDS. SHE DENIES ANY PAIN/DISCOMFORT AT THIS TIME. DENIES SOB. ON O2 @2LPM VIA NC. IVON WELL. IV SITE: L-FA #20G INTACT/PATENT/FLUSHES WELL. PT IN NO ACUTE DISTRESS. SAFETY MEASURES IN PLACE, BED IN LOWEST LOCKED POSITION, S/R UPX2, CALL LIGHT WITHIN REACH. WILL CONT TO MONITOR.
[2020-12-12 20:00] VITALS: BP 117/67
[2020-12-12] MEDS: ZOLPIDEM TARTRATE 5 MG TABLET PO PRN (20:18)
[2020-12-12] MEDS: ENOXAPARIN SODIUM 40 MG/0.4 ML DISP.SYRIN SQ SCH (20:58)
--- NOTE | 2020-12-12 20:59 | NUR ---
RN NOTE PT REFUSED LOVENOX AND METOPROLOL. BP 117/ PT ONLY WANTS TO TAKE SLEEPING PILL, AMBIEN GIVEN ORDERED. Addendum: 12/12/20 at 2101 by LINDSEY ZAPATA RN NOTE SAVED UNFINISHED. BP 117/67, HR 61. WILL CONT TO MONITOR.
--- NOTE | 2020-12-13 06:46 | NUR ---
MS RN CLOSING NOTE PT RESTING IN BED, EASILY AROUSABLE TO STIMULI, ABLE TO VERBALIZE NEEDS. NO C/O PAIN/DISCOMFORT. DENIES SOB. HAS EXERTIONAL SOB WHEN BEING CHANGED/REPOSITIONED. ON O2 @2LPM VIA NC. IVON WELL. IV SITE: FA #20G INTACT/PATENT/FLUSHES WELL. NO ACUTE EVENTS DURING THE NIGHT. SAFETY MEASURES MAINTAINED.
[2020-12-13] MEDS ORDERED: LEVO75TA PO (07:43)
[2020-12-13] MEDS ORDERED: METO50TA16 PO (07:43)
[2020-12-13] MEDS ORDERED: DILT240C88 PO (07:43)
--- NOTE | 2020-12-13 07:43 | NUR ---
MS/RN OPENING NOTE RECEIVED PT AWAKE IN BED, A/OX4, ABLE TO VERBALIZE NEEDS. DENIES SOB. ON O2 @2LPM VIA NC. TOLERATING WELL. IV SITE: LEFT FA #20G INTACT/PATENT/FLUSHES WELL. PT IN NO ACUTE DISTRESS. SAFETY MEASURES IN PLACE, BED IN LOWEST LOCKED POSITION, S/R UPX2, CALL LIGHT WITHIN REACH. WILL CONT TO MONITOR.
[2020-12-13] MEDS: ENSURE ENLIVE 237 ML LIQUID (VANILLA) PO SCH ×2 (08:34→12:14)
[2020-12-13] MEDS: PANTOPRAZOLE 40 MG TABLET.DR PO SCH (08:34)
[2020-12-13 08:38] LABS: CALCIUM, SERUM 9.3 mg/dL (8.5-10.1); CREATININE 1.1 mg/dL (0.6-1.3); POTASSIUM 4.9 mmol/L (3.5-5.1)
[2020-12-13 08:49] LABS: BASOPHILS % (AUTO) 0.3 % (0.0-2.0); EOSINOPHILS % (AUTO) 1.4 % (0.0-6.0); HEMATOCRIT 37 % (33-45); LYMPHOCYTES # (AUTO) 1.5 K/uL (0.8-4.8); LYMPHOCYTES % (AUTO) 21.4 % (20.0-44.0); MEAN CORPUSCULAR HGB CONC 33 g/dl (31.0-36.0); MEAN CORPUSCULAR VOLUME 85 fL (82-100); MONOCYTES # (AUTO) 0.5 K/uL (0.1-1.30); MONOCYTES % (AUTO) 7.3 % (2.0-12.0); NEUTROPHILS # (AUTO) 4.8 K/uL (1.8-8.9); NEUTROPHILS % (AUTO) 69.6 % (43.0-81.0); PLATELET COUNT (AUTO) 256 K/uL (150-450); RED BLOOD CELL COUNT(AUTO) 4.32 MIL/uL (4.0-5.2); WHITE BLOOD COUNT (AUTO) 6.8 K/uL (4.3-11.0)
[2020-12-13 09:29] VITALS: BP 142/60
[2020-12-13] MEDS: DILTIAZEM HCL CD 240 MG PO SCH (09:29)
[2020-12-13] MEDS: METOPROLOL TARTRATE 50 MG TABLET PO SCH (09:29)
[2020-12-13] MEDS: ACETAMINOPHEN 325 MG TABLET PO PRN (09:48)
--- NOTE | 2020-12-13 16:00 | NUR ---
MS/POTATO PICKER NOTES PATIENT IS ALERT AND ORIENTED X4, ABLE TO MAKE NEEDS KNOWN. STABLE ON ROOM AIR WITH O2 SAT OF 94-95%. PATIENT IS MEDICALLY STABLE AND DR. CESPEDES ORDERED A DISCHARGE TO HOME. DISCHARGE INSTRUCTIONS GIVEN TO THE PATIENT AND SHE IS ABLE TO VERBALIZED UNDERSTANDING. ALL BELONGINGS ACCOUNTED FOR. IV ACCESS ON LEFT FA DISCONTINUED. PATIENT WAS PICKED UP BY NON-EMERGENCY TRANSPORTATION TO RETURN TO HOME.
== END 2020-12-13 16:00 | DRG 194 ==
LOC: ER 05:39 → TELE 10:13 → MED 12-10 08:59
PROVIDERS: ADMIT Student in an Organized Health Care Education/Training Program; ATTEND Family Medicine
DX: I11.0 Hypertensive heart disease with heart failure (principal); N17.0 Acute kidney failure with tubular necrosis; D68.69 Other thrombophilia; Z79.01 Long term (current) use of anticoagulants; I48.91 Unspecified atrial fibrillation; K21.9 Gastro-esophageal reflux disease without esophagitis; Z20.822 Contact with and (suspected) exposure to COVID-19; I50.33 Acute on chronic diastolic (congestive) heart failure; E78.5 Hyperlipidemia, unspecified; I08.0 Rheumatic disorders of both mitral and aortic valves; I25.10 Atherosclerotic heart disease of native coronary artery without angina pectoris; Z86.73 Personal history of transient ischemic attack (TIA), and cerebral infarction without residual deficits; R79.89 Other specified abnormal findings of blood chemistry; E05.20 Thyrotoxicosis with toxic multinodular goiter without thyrotoxic crisis or storm; J98.11 Atelectasis; T50.2X5A Adverse effect of carbonic-anhydrase inhibitors, benzothiadiazides and other diuretics, initial encounter; Y92.89 Other specified places as the place of occurrence of the external cause
CPT/HCPCS: 36415; 71045-TC; 76536-TC; 80048-TC; 80053-TC; 80061-TC; 83735-TC; 83880; 84100-TC; 84439-TC; 84443-TC; 84484-TC; 85025-TC; 87081-TC; 93307-TC; 93971-TC; C9803; G0378; J1650; J1940; J3490; J7030

== ENCOUNTER 2020-12-28 14:44 | Inpatient (IN) | payer MEDICARE, MEDICAID ==
[~2020-12-28] VITALS: Ht 165.1 cm; Wt 72.7 kg
[~2020-12-28 14:44] MED LIST changes: +APIX5TAB PO; -ASCO-352 PO; -CARV6.252 PO; -CLOP75TA15 PO; +DILT240C88 PO; -DIPH25CA51 PO; -DOCU-141 PO; -Digoxin PO; -FERR325T23 PO; +GABA-532 PO; -GABA-534 PO; -HYDR-4384 PO; -ICOS1CAP PO; -LEVO112T2 PO; +LEVO75TA PO; -MELA5TAB PO; +METO50TA16 PO; +MIDO5TAB4 PO; -MULT-447 PO; -PANT40TA2 PO; -POLY15DR40 LEFTEYE; -POLY17PO4 PO; -SENN-261 PO; -WARF-58 PO
--- NOTE | 2020-12-28 15:01 | NUR ---
TO ER BED 8, BIBRA 88, C/O DIFFICULTY TAKING DEEP BREATH X3DAYS O2 SAT 97% AT ROOM AIR, AAOX3, CONNECTED TO MONITOR AND CHANGED INTO A GOWN.
--- NOTE | 2020-12-28 15:20 | NUR ---
SALINE LOCK ESTABLISHED, BLOOD DRAWN AND SENT TO LAB
[2020-12-28 15:54] LABS: BASOPHILS # (AUTO) 0.2 K/uL (0.0-0.2); BASOPHILS % (AUTO) 2.1 % (0.0-2.0); EOSINOPHILS % (AUTO) 1.8 % (0.0-6.0); HEMATOCRIT 39 % (33-45); HEMOGLOBIN 12.7 g/dL (11.5-14.8); LYMPHOCYTES % (AUTO) 10.3 % (20.0-44.0); MEAN CORPUSCULAR HGB CONC 33 g/dl (31.0-36.0); MEAN CORPUSCULAR VOLUME 86 fL (82-100); MONOCYTES # (AUTO) 0.9 K/uL (0.1-1.30); MONOCYTES % (AUTO) 8.6 % (2.0-12.0); NEUTROPHILS # (AUTO) 7.8 K/uL (1.8-8.9); NEUTROPHILS % (AUTO) 77.2 % (43.0-81.0); PLATELET COUNT (AUTO) 287 K/uL (150-450); RED BLOOD CELL COUNT(AUTO) 4.55 MIL/uL (4.0-5.2); WHITE BLOOD COUNT (AUTO) 10.1 K/uL (4.3-11.0)
[2020-12-28 16:43] LABS: ALANINE AMINOTRANSFERASE 38 U/L (12-78); ALBUMIN 3.3 g/dL (3.4-5.0); ALKALINE PHOSPHATASE 146 U/L (46-116); ASPARTATE AMINOTRANSFERASE 32 U/L (15-37); BILIRUBIN,TOTAL 0.5 mg/dL (0.2-1.0); CALCIUM, SERUM 8.4 mg/dL (8.5-10.1); CARBON DIOXIDE 21 mmol/L (21-32); CHLORIDE 106 mmol/L (98-107); CREATININE 1.3 mg/dL (0.6-1.3); GLUCOSE 110 mg/dL (74-106); POTASSIUM 5.9 mmol/L (3.5-5.1); SODIUM SERUM 137 mmol/L (136-145); TOTAL PROTEIN, SERUM 7.5 g/dL (6.4-8.2); UREA NITROGEN, BLOOD 46 mg/dL (7-18)
--- NOTE | 2020-12-28 16:43 | NUR ---
covid swab collected and sent to lab.
--- NOTE | 2020-12-28 18:55 | NUR ---
pt. brought up from er,oriented to .vs taken.call light within reach.hooked up to tele.rhythm at fib rate of 63.side rails up.
--- NOTE | 2020-12-28 19:09 | NUR ---
wheeled patient via gurney accompanied by RN and emt in no distress. RN assigned to patient at bedside to assume care.
[2020-12-28] MEDS ORDERED: Z GUARD REMEDY 2 OZ OINT TP PRN (19:30)
[2020-12-28] MEDS ORDERED: BUMETANIDE INJ 6 MG in IV NS 0.9% 36 ML IV ONE (19:30)
--- NOTE | 2020-12-28 19:50 | NUR ---
TELE/RN ADMITTING NOTE RECEIVED PATIENT RESTING IN BED. AWAKE, ALERT AND ORIENTED X 4. ABLE TO MAKE NEEDS KNOWN. DENIES PAIN AT THIS TIME. PRIMARY LANGUAGE IS FARSI BUT UNDERSTANDS MOST MACEDONIAN. PATIENT IS BEING ADMITTED WITH DX OF CHF AND AFLUTTER/AFIB. CONTINUES ON ROOM AIR WITH NO S/SX OF RESPIRATORY DISTRESS NOTED. IV ACCESS TO LEFT AC #20G INTACT, PATENT AND SALINE LOCKED. TELE MONITOR ON WITH CURRENT READING AFIB HR 62. SKIN CHECK PERFORMED ON ADMISSION WITH MULTIPLE BRUISES NOTED TO BUE AND ABDOMEN. REDNESS NOTED TO BILATERAL FEET. WOUND CONSULT ORDERED. PATIENT ORIENTED TO ROOM, CALL LIGHT AND UNIT. CALL LIGHT WITHIN REACH. ASPIRATION, FALL AND SAFETY PRECAUTIONS MAINTAINED. WILL CONTINUE TO MONITOR.
[2020-12-28 20:00] VITALS: BP 126/66
[2020-12-28] MEDS ORDERED: BUMETANIDE INJ 0.25 MG/ML VIAL ONE ×2 (20:56→21:18)
--- NOTE | 2020-12-28 21:00 | NUR ---
TELE/RN NOTE SPOKE TO PATIENTS SISTER, KIRSTEN PAGE. GAVE UPDATE AND INQUIRED ABOUT HOME MEDICATION LIST. PER SISTER, SHE DOES NOT KNOW WHAT MEDICATIONS SHE TAKES AT HOME BUT WILL TRY TO OBTAIN A LIST AND BRING IN.
[2020-12-28] MEDS: ZOLPIDEM TARTRATE 5 MG TABLET PO PRN (22:30)
[2020-12-29] VITALS: BP 120/60
[2020-12-29 04:00] VITALS: BP 117/77
--- NOTE | 2020-12-29 06:46 | NUR ---
TELE/RN CLOSING NOTE PATIENT CURRENTLY SLEEPING IN BED. ALERT AND ORIENTED X 4. ABLE TO MAKE NEEDS KNOWN. DENIES PAIN AT THIS TIME. CONTINUES ON ROOM AIR WITH NO S/SX OF RESPIRATORY DISTRESS NOTED. IV ACCESS TO LEFT AC #20G INTACT, PATENT AND SALINE LOCKED. TELE MONITOR CURRENTLY READING AFIB/AFLUTTER HR 86. CALL LIGHT WITHIN REACH. ASPIRATION, FALL AND SAFETY PRECAUTIONS MAINTAINED. WILL ENDORSE PLAN OF CARE TO ONCOMING SHIFT.
[2020-12-29] MEDS: ACETAMINOPHEN 325 MG TABLET PO PRN ×2 (06:58→19:41)
--- NOTE | 2020-12-29 07:12 | NUR ---
TELE/RN OPENING NOTE RECEIVED PATIENT RESTING IN BED. AWAKE, ALERT AND ORIENTED X 4. ABLE TO MAKE NEEDS KNOWN. DENIES PAIN AT THIS TIME. PATIENT IS BREATHING EVENLY AND NONLABORED CONTINUES ON ROOM AIR WITH NO S/SX OF RESPIRATORY DISTRESS NOTED. IV ACCESS TO LEFT AC #20G INTACT, PATENT AND SALINE LOCKED. TELE MONITOR ON WITH CURRENT READING AFIB HR 62. CALL LIGHT WITHIN REACH. ASPIRATION, FALL AND SAFETY PRECAUTIONS MAINTAINED, BED LOW LOCKED AND CALL LIGHT WITHIN REACH WILL CONTINUE TO MONITOR.
[2020-12-29 07:37] LABS: BASOPHILS % (AUTO) 0.3 % (0.0-2.0); HEMATOCRIT 39 % (33-45); HEMOGLOBIN 13.1 g/dL (11.5-14.8); LYMPHOCYTES # (AUTO) 1.7 K/uL (0.8-4.8); LYMPHOCYTES % (AUTO) 17.9 % (20.0-44.0); MEAN CORPUSCULAR HGB CONC 33 g/dl (31.0-36.0); MEAN CORPUSCULAR VOLUME 85 fL (82-100); MONOCYTES # (AUTO) 0.7 K/uL (0.1-1.30); MONOCYTES % (AUTO) 7.5 % (2.0-12.0); NEUTROPHILS # (AUTO) 6.8 K/uL (1.8-8.9); NEUTROPHILS % (AUTO) 72.3 % (43.0-81.0); PLATELET COUNT (AUTO) 221 K/uL (150-450); RED BLOOD CELL COUNT(AUTO) 4.61 MIL/uL (4.0-5.2); WHITE BLOOD COUNT (AUTO) 9.4 K/uL (4.3-11.0)
[2020-12-29 08:00] VITALS: BP 101/77
[2020-12-29] MEDS: PANTOPRAZOLE 40 MG TABLET.DR PO SCH (08:10)
[2020-12-29] MEDS: APIXABAN 5 MG TABLET PO SCH ×2 (08:11→16:05)
[2020-12-29 08:30] LABS: ALBUMIN 3.7 g/dL (3.4-5.0); BILIRUBIN,TOTAL 0.5 mg/dL (0.2-1.0); CALCIUM, SERUM 9.1 mg/dL (8.5-10.1); CREATININE 1.3 mg/dL (0.6-1.3); POTASSIUM 4.8 mmol/L (3.5-5.1); TOTAL PROTEIN, SERUM 7.8 g/dL (6.4-8.2)
[2020-12-29] MEDS ORDERED: CYCL30DR EACHEYE (08:43)
[2020-12-29] MEDS ORDERED: FURO20TA4 PO (08:43)
[2020-12-29] MEDS ORDERED: APIX5TAB PO (08:43)
[2020-12-29] MEDS ORDERED: POTA10TA10 PO (08:43)
[2020-12-29] MEDS ORDERED: LEVO75TA7 PO (08:43)
[2020-12-29] MEDS ORDERED: METO50TA16 PO (08:43)
[2020-12-29] MEDS ORDERED: DILT240C49 PO (08:43)
[2020-12-29] MEDS ORDERED: ATOR10TA PO (08:43)
[2020-12-29] MEDS ORDERED: GABA-532 PO (08:43)
[2020-12-29] MEDS ORDERED: MIDO5TAB4 PO (08:45)
[2020-12-29] MEDS ORDERED: CARVEDILOL 6.25 MG TABLET PO SCH (09:00)
[2020-12-29] MEDS: ONDANSETRON HCL/PF 4 MG/2 ML VIAL IVP PRN (10:21)
--- NOTE | 2020-12-29 15:21 | NUR ---
RN NOTE RECEIVED POSITIVE LAB MRSA OF NARES. GAVE ORDER FOR BACTROBAN TOPICALLY TO [facility]ES. WILL CONTINUE TO MONITOR
[2020-12-29 16:00] VITALS: BP 104/69
[2020-12-29] MEDS ORDERED: MIDODRINE HCL (5MG) 5 MG TABLET PO PRN (16:00)
[2020-12-29] MEDS: GABAPENTIN 100 MG CAPSULE PO SCH (16:05)
[2020-12-29] MEDS: METOPROLOL TARTRATE 50 MG TABLET PO SCH ×2 (16:07→21:05)
[2020-12-29] MEDS: DILTIAZEM HCL CD 180 MG PO SCH (16:07)
[2020-12-29] MEDS ORDERED: APIXABAN 5 MG TABLET PO SCH (17:00)
[2020-12-29] MEDS ORDERED: Medication Not On Formulary EA (Cyclosporine (Restasis) 1 DROP) EACHEYE SCH (17:00)
[2020-12-29] MEDS ORDERED: METOPROLOL TARTRATE 50 MG TABLET PO SCH (17:00)
[2020-12-29] MEDS: ATORVASTATIN 10 MG TABLET PO SCH (17:03)
--- NOTE | 2020-12-29 18:17 | NUR ---
TELE/RN CLOSING NOTE PATIENT RESTING IN BED. AWAKE, ALERT AND ORIENTED X 4. ABLE TO MAKE NEEDS KNOWN. DENIES PAIN AT THIS TIME. PATIENT IS BREATHING EVENLY AND NONLABORED CONTINUES ON 2LPM VIA NASAL CANNULA WITH NO S/SX OF RESPIRATORY DISTRESS NOTED. IV ACCESS TO LEFT AC #20G INTACT, PATENT AND SALINE LOCKED. TELE MONITOR ON WITH CURRENT READING AFLUTTER 81. ALL MEDICATIONS WERE GIVEN ORDERED. CALL LIGHT WITHIN REACH. ASPIRATION, FALL AND SAFETY PRECAUTIONS MAINTAINED, BED LOW LOCKED AND CALL LIGHT WITHIN REACH WILL ENDORSE TO ONCOMING SHIFT
--- NOTE | 2020-12-29 19:40 | NUR ---
TELE/RN OPENING NOTE RECEIVED PATIENT RESTING IN BED. AWAKE, ALERT AND ORIENTED X 4. ABLE TO MAKE NEEDS KNOWN. C/O GENERALIZED PAIN - WILL ADMINISTER PRN MEDICATION. CONTINUES ON O2 2L VIA NC WITH NO S/SX OF RESPIRATORY DISTRESS NOTED. IV ACCESS TO LEFT AC #20G INTACT, PATENT AND SALINE LOCKED. CONTINUES ON TELE MONITOR WITH CURRENT READING AFIB HR 73. CALL LIGHT WITHIN REACH. ASPIRATION, FALL AND SAFETY PRECAUTIONS MAINTAINED. WILL CONTINUE TO MONITOR.
--- NOTE | 2020-12-29 19:50 | NUR ---
TELE/RN NOTE C/O GENERALIZED PAIN 05/15. ADMINISTERED PRN TYLENOL. WILL RECHECK PAIN LEVEL.
[2020-12-29 20:00] VITALS: BP 116/61
[2020-12-29] MEDS: MUPIROCIN OINT 2% 22 GM TUBE NS SCH (21:04)
[2020-12-29] MEDS: ZOLPIDEM TARTRATE 5 MG TABLET PO PRN (21:05)
[2020-12-30] VITALS: BP 109/74
[2020-12-30 04:54] VITALS: BP 105/62
--- NOTE | 2020-12-30 06:50 | NUR ---
TELE/RN CLOSING NOTE PATIENT CURRENTLY SLEEPING IN BED. ALERT AND ORIENTED X 4. ABLE TO MAKE NEEDS KNOWN. DENIES PAIN AT THIS TIME. CONTINUES ON O2 2L VIA NC WITH NO S/SX OF RESPIRATORY DISTRESS NOTED. IV ACCESS TO LEFT AC #20G INTACT, PATENT AND SALINE LOCKED. CONTINUES ON TELE MONITOR WITH CURRENT READING AFIB HR 59. CALL LIGHT WITHIN REACH. ASPIRATION, FALL AND SAFETY PRECAUTIONS MAINTAINED. WILL ENDORSE PLAN OF CARE TO ONCOMING SHIFT.
--- NOTE | 2020-12-30 07:40 | NUR ---
STATION MECHANIC OPENING NOTES RECEIVED PATIENT IN ASLEEP IN BED, EASY TO AROUSE. ALERT AND ORIENTED X4. NO S/S OF DISTRESS NOTED. ON O2 2L VIA NASAL CANNULA, TOLERATING WELL. NO SOB. BREATHING IS EVEN AND UNLABORED. IV ACCESS LAC#20 PATENT AND INTACT. PT WITH EXTERNAL BODY SHOP TECHNICIAN WITH AFIB/AFLUTTER-KAY. SAFETY AND ASPIRATION MEASURES IN PLACE WITH BED LOCKED IN LOW POSITION AND SIDE RAILS UP X 2. WILL CONTINUE TO MONITOR PATIENT THROUGHOUT SHIFT.
[2020-12-30 08:00] VITALS: BP 96/60
[2020-12-30 08:02] LABS: BASOPHILS % (AUTO) 0.3 % (0.0-2.0); CALCIUM, SERUM 8.8 mg/dL (8.5-10.1); CARBON DIOXIDE 23 mmol/L (21-32); CHLORIDE 101 mmol/L (98-107); CREATININE 1.7 mg/dL (0.6-1.3); EOSINOPHILS % (AUTO) 2.1 % (0.0-6.0); GLUCOSE 103 mg/dL (74-106); HEMATOCRIT 38 % (33-45); HEMOGLOBIN 12.4 g/dL (11.5-14.8); LYMPHOCYTES # (AUTO) 1.5 K/uL (0.8-4.8); MAGNESIUM 2.4 mg/dL (1.8-2.4); MEAN CORPUSCULAR HGB CONC 33 g/dl (31.0-36.0); MEAN CORPUSCULAR VOLUME 87 fL (82-100); MONOCYTES # (AUTO) 0.7 K/uL (0.1-1.30); MONOCYTES % (AUTO) 8.7 % (2.0-12.0); NEUTROPHILS # (AUTO) 5.3 K/uL (1.8-8.9); NEUTROPHILS % (AUTO) 68.9 % (43.0-81.0); PHOSPHORUS 5.9 mg/dL (2.5-4.9); PLATELET COUNT (AUTO) 207 K/uL (150-450); POTASSIUM 5.4 mmol/L (3.5-5.1); RED BLOOD CELL COUNT(AUTO) 4.34 MIL/uL (4.0-5.2); SODIUM SERUM 136 mmol/L (136-145); UREA NITROGEN, BLOOD 66 mg/dL (7-18); WHITE BLOOD COUNT (AUTO) 7.7 K/uL (4.3-11.0)
[2020-12-30] MEDS: LEVOTHYROXINE SODIUM 75 MCG TABLET PO SCH (08:18)
[2020-12-30] MEDS: PANTOPRAZOLE 40 MG TABLET.DR PO SCH (08:18)
[2020-12-30] MEDS ORDERED: POTASSIUM CHLORIDE 10 MEQ TABLET.SA PO SCH (09:00)
[2020-12-30] MEDS: METOPROLOL TARTRATE 50 MG TABLET PO SCH (09:00)
[2020-12-30] MEDS ORDERED: FUROSEMIDE 20 MG TABLET PO SCH (09:00)
--- NOTE | 2020-12-30 09:00 | NUR ---
MS RN NOTES CARDIZEM AND METOPROLOL HELD D/T LOW BP 96/60 HR 74
[2020-12-30] MEDS: APIXABAN 5 MG TABLET PO SCH ×2 (09:04→16:16)
[2020-12-30] MEDS: GABAPENTIN 100 MG CAPSULE PO SCH ×2 (09:06→16:16)
[2020-12-30] MEDS: DILTIAZEM HCL CD 180 MG PO SCH (09:07)
[2020-12-30] MEDS: MUPIROCIN OINT 2% 22 GM TUBE NS SCH ×2 (09:19→20:28)
[2020-12-30] MEDS: IV NS 0.9% 1,000 ML IV PRN ×2 (11:47→22:43)
[2020-12-30 12:00] VITALS: BP 117/64
[2020-12-30] MEDS: DIGOXIN INJ 0.5 MG/2 ML AMPUL IV SCH ×2 (12:25→17:31)
[2020-12-30 16:00] VITALS: BP 105/60
--- NOTE | 2020-12-30 16:50 | NUR ---
WINDOW CLEANER NOTES INFORMED DR. AMIE ROBLERO OF POTASSIUM LEVEL 5.4 RESULTED FROM AM LABS, WITH NEW ORDER FOR STAT BMP; ORDERS READ BACK AND CARRIED OUT.
[2020-12-30] MEDS: ATORVASTATIN 10 MG TABLET PO SCH (17:30)
[2020-12-30] MEDS ORDERED: ENSURE ENLIVE 237 ML LIQUID (VANILLA) PO PRN (18:00)
[2020-12-30 18:12] LABS: CALCIUM, SERUM 8.1 mg/dL (8.5-10.1); CARBON DIOXIDE 22 mmol/L (21-32); CHLORIDE 102 mmol/L (98-107); CREATININE 1.4 mg/dL (0.6-1.3); GLUCOSE 106 mg/dL (74-106); POTASSIUM 5.2 mmol/L (3.5-5.1); SODIUM SERUM 137 mmol/L (136-145); UREA NITROGEN, BLOOD 61 mg/dL (7-18)
--- NOTE | 2020-12-30 18:36 | NUR ---
MANAGER OF PATIENT CLOSING NOTES PATIENT AWAKE IN BED RESTING. NO S/S OF DISTRESS NOTED. ON O2 2L VIA NASAL CANNULA SATURATING AT 96%. NO SOB. BREATHING IS EVEN AND UNLABORED. IV ACCESS LAC#20 PATENT AND INTACT. PT WITH EXTERNAL MEDICAL MICROBIOLOGIST READING AFIB/AFLUTTER 60'S. SAFETY AND ASPIRATION MEASURES MAINTAINED. WILL ENDORSE CONTINUITY OF CARE TO ONCOMING SHIFT.
--- NOTE | 2020-12-30 19:00 | NUR ---
GAUGE INSPECTOR OPENING NOTE RECEIVED PT RESTING IN BED. A/O X4, PT STABLE ON 2L OXYGEN VIA NC. NO SOB NOTED, NO S/S OF RESPIRATORY DISTRESS. PT IS ON EXTERNAL HOSPITAL SALES REPRESENTATIVE READING A FLUTTER @ 67. NO C/O PAIN AT THIS TIME. IV ACCESS IN LEFT AC G#20, INTACT, PATENT, AND FLUSHING WELL. SAFETY MEASURES MAINTAINED AT ALL TIMES. BED IN LOWEST, LOCKED POSITION, HOB ELEVATED, SIDE RAILS UP X2. CALL LIGHT AND TABLE WITHIN REACH. WILL CONTINUE WITH PLAN OF CARE.
--- NOTE | 2020-12-30 19:00 | NUR ---
MS RN OPENING NOTE RECEIVED PT IN BED, RESTING. A/O X4. PT IS ON ROOM AIR, NO SOB OR RESPIRATORY DISTRESS NOTED, NO C/O PAIN. RESPIRATIONS EVEN AND UNLABORED, IV ACCESS NOTED IN LEFT AC G#20, INTACT, PATENT AND FLUSHING WELL. FALL AND SAFETY MEASURES IN PLACE AND MAINTAINED AT ALL TIMES. BED ALARM ON, BED IN LOW AND LOCKED POSITION, HOB ELEVATED TO SEMI FOWLERS POSITION, CALL LIGHT AND TABLE WITHIN REACH, SIDE RAILS UP X2. WILL CONTINUE TO MONITOR.
[2020-12-30 20:00] VITALS: BP 120/73
[2020-12-30] MEDS: ZOLPIDEM TARTRATE 5 MG TABLET PO PRN (21:11)
--- NOTE | 2020-12-30 22:11 | NUR ---
PT C/O INABILITY TO SLEEP.PER PT REQUEST AMBIEN 5MG PO HS PRN ADMINISTERED AT THIS TIME PER ORDER. WILL CONTINUE TO MONITOR.
[2020-12-31] VITALS (7 sets, daily range): BP systolic 94–121; BP diastolic 44–78
[2020-12-31] MEDS: DIGOXIN INJ 0.5 MG/2 ML AMPUL IV SCH (00:08)
[2020-12-31] MEDS: ACETAMINOPHEN 325 MG TABLET PO PRN (05:40)
[2020-12-31 06:40] LABS: BASOPHILS % (AUTO) 0.2 % (0.0-2.0); HEMATOCRIT 38 % (33-45); HEMOGLOBIN 12.5 g/dL (11.5-14.8); LYMPHOCYTES # (AUTO) 1.2 K/uL (0.8-4.8); LYMPHOCYTES % (AUTO) 14.9 % (20.0-44.0); MEAN CORPUSCULAR HGB CONC 33 g/dl (31.0-36.0); MEAN CORPUSCULAR VOLUME 87 fL (82-100); MONOCYTES # (AUTO) 0.6 K/uL (0.1-1.30); MONOCYTES % (AUTO) 7.4 % (2.0-12.0); NEUTROPHILS # (AUTO) 5.9 K/uL (1.8-8.9); NEUTROPHILS % (AUTO) 75.5 % (43.0-81.0); PLATELET COUNT (AUTO) 179 K/uL (150-450); RED BLOOD CELL COUNT(AUTO) 4.39 MIL/uL (4.0-5.2); WHITE BLOOD COUNT (AUTO) 7.8 K/uL (4.3-11.0)
--- NOTE | 2020-12-31 07:22 | NUR ---
MUSIC VIDEO DIRECTOR OPENING NOTES RECEIVED PATIENT IN BED, AWAKE, A/O X4. PATIENT ON ROOM AIR; BREATHING EVEN BUT COMPLAINING OF DIFFICULTY BREATHING DUE TO ONE NARIS BEING CONGESTED; NO SOB PRESENT. CURRENT TELE MONITOR WITH A READING OF A-FLUTTER 65. COMPLAINING OF GENERALIZED BODY ACHE. LAC IV ACCESS PRESENT AND INTACT INFUSING NS @ 100 MLS/HR. SAFETY PRECAUTIONS IN PLACE; BED IN LOW POSITION AND LOCKED, RAILS UP X2, CALL LIGHT WITHIN REACH. WILL CONTINUE TO MONITOR PATIENT.
[2020-12-31 07:27] LABS: CALCIUM, SERUM 8.4 mg/dL (8.5-10.1); CREATININE 1.1 mg/dL (0.6-1.3); MAGNESIUM 2.1 mg/dL (1.8-2.4); PHOSPHORUS 4.1 mg/dL (2.5-4.9); POTASSIUM 4.9 mmol/L (3.5-5.1)
[2020-12-31] MEDS: PANTOPRAZOLE 40 MG TABLET.DR PO SCH (07:47)
[2020-12-31] MEDS: LEVOTHYROXINE SODIUM 75 MCG TABLET PO SCH (07:47)
[2020-12-31] MEDS: MUPIROCIN OINT 2% 22 GM TUBE NS SCH ×2 (07:49→21:46)
[2020-12-31] MEDS: GABAPENTIN 100 MG CAPSULE PO SCH ×2 (08:11→16:14)
[2020-12-31] MEDS: APIXABAN 5 MG TABLET PO SCH ×2 (08:12→16:15)
[2020-12-31] MEDS: DIGOXIN 0.25 MG TABLET PO SCH (13:35)
[2020-12-31] MEDS: ATORVASTATIN 10 MG TABLET PO SCH (17:24)
--- NOTE | 2020-12-31 18:39 | NUR ---
BOX CUTTER CLOSING NOTES PATIENT REMAINS IN BED, AWAKE, A/O X4. PATIENT ON ROOM AIR; BREATHING EVEN; NO SOB PRESENT. CURRENT TELE MONITOR WITH A READING OF A-FLUTTER 84BPM. COMPLAINING OF GENERALIZED BODY ACHE. LAC IV ACCESS PRESENT AND INTACT; SL. ALL NEEDS ATTENDED DURING THE DAY. SAFETY PRECAUTIONS IN PLACE; BED IN LOW POSITION AND LOCKED, RAILS UP X2, CALL LIGHT WITHIN REACH. WILL ENDORSE TO MECHANISM ASSEMBLER NURSE FOR PATSY.
[2020-12-31] MEDS: ZOLPIDEM TARTRATE 5 MG TABLET PO PRN (22:37)
--- NOTE | 2020-12-31 22:37 | NUR ---
PT C/O INABILITY TO SLEEP.PER PT REQUEST AMBIEN 5MG PO HS PRN ADMINISTERED AT THIS TIME PER ORDER. WILL CONTINUE TO MONITOR.
[2021-01-01 04:00] VITALS: BP 116/63
--- NOTE | 2021-01-01 06:49 | NUR ---
RN CLOSING NOTE PT REMAINED STABLE THROUGHOUT SHIFT. WILL ENDORSE TO ONCOMING NURSE FOR PATSY.
--- NOTE | 2021-01-01 07:30 | NUR ---
OCCUPATIONAL HEALTH PROFESSIONAL OPENING NOTES RECEIVED PT IN BED, AWAKE IN BED. A/O X4. PT IS ON O2 AT 2 LPM VIA N.C, NO SOB OR RESPIRATORY DISTRESS NOTED. BREATHING EVEN AND UNLABORED. NO C/O PAIN OR DISCOMFORT AT THIS TIME, IV ACCESS NOTED IN LEFT HAND G#20, INTACT AND PATENT AND FLUSHING WELL. PATIENT WITH EXTERNAL BLENDING MACHINE FEEDER WITH CURRENT READING OF A FLUTTER HR 80'S, NO CARDIAC DISTRESS NOTED. FALL AND SAFETY MEASURES IN PLACE AND MAINTAINED AT ALL TIMES. BED ALARM ON, BED IN LOW AND LOCKED POSITION, CALL LIGHT AND TABLE WITHIN EASY REACH, SIDE RAILS UP X2. WILL CONTINUE TO MONITOR PT. ACCGDLY
[2021-01-01 08:00] VITALS: BP 119/75
[2021-01-01] MEDS: LEVOTHYROXINE SODIUM 75 MCG TABLET PO SCH (09:04)
[2021-01-01] MEDS: PANTOPRAZOLE 40 MG TABLET.DR PO SCH (09:04)
[2021-01-01] MEDS: GABAPENTIN 100 MG CAPSULE PO SCH ×2 (09:04→17:24)
[2021-01-01] MEDS: APIXABAN 5 MG TABLET PO SCH ×2 (09:07→17:27)
[2021-01-01] MEDS: MUPIROCIN OINT 2% 22 GM TUBE NS SCH ×2 (09:10→22:00)
--- NOTE | 2021-01-01 09:44 | NUR ---
RN NOTES OUTBOUND SALES PROFESSIONAL CAME TO [facility] BLOOD AGAIN THIS MORNING BECAUSE THE BLOOD THAT THEY OBTAINED EARLIER HEMOLYZED NUT PT REFUSED TO HAVE IT DONE AGAIN DESPITE EXPLAINING BENEFITS. DR NUÑEZ ON UNIT AND MADE AWARE AND STATED THAT IT'S OK.
[2021-01-01] MEDS: DIGOXIN 0.25 MG TABLET PO SCH (12:55)
[2021-01-01 16:00] VITALS: BP 115/77
[2021-01-01] MEDS: ATORVASTATIN 10 MG TABLET PO SCH (17:24)
--- NOTE | 2021-01-01 18:29 | NUR ---
VIDEO GAME TECHNICIAN CLOSING NOTES PT IN BED, AWAKE IN BED. A/O X4. PT IS ON O2 AT 2 LPM VIA N.C, NO SOB OR RESPIRATORY DISTRESS NOTED. BREATHING EVEN AND UNLABORED. NO C/O PAIN OR DISCOMFORT AT THIS TIME, IV ACCESS NOTED IN LEFT HAND G#20, INTACT AND PATENT AND FLUSHING WELL. PATIENT WITH EXTERNAL FOOD COUNTER WORKER WITH CURRENT READING OF A FLUTTER HR 80'S, NO CARDIAC DISTRESS NOTED. FALL AND SAFETY MEASURES IN PLACE AND MAINTAINED AT ALL TIMES. BED ALARM ON, BED IN LOW AND LOCKED POSITION, CALL LIGHT AND TABLE WITHIN EASY REACH, SIDE RAILS UP X2. WILL ENDORSED PT. TO IRON PLASTIC BULLET MAKER NURSE FOR CONTINUITY OF CARE.
[2021-01-01 20:00] VITALS: BP 105/66
[2021-01-02] VITALS: BP 110/58
[2021-01-02] MEDS: ONDANSETRON HCL/PF 4 MG/2 ML VIAL IVP PRN (01:52)
[2021-01-02] MEDS: ZOLPIDEM TARTRATE 5 MG TABLET PO PRN ×2 (01:57→21:56)
[2021-01-02 04:00] VITALS: BP 110/55
--- NOTE | 2021-01-02 06:39 | NUR ---
LIFE SKILLS TEACHER NOTES AWAKE & RESPONSIVE. NOT IN ANY DISTRESS. NO SOB NOTED. DENIES ANY PAIN OR DISCOMFORT AT THIS TIME. ON TELE AFLUTTER @ 94 WITH IV-HL PATENT & INTACT. MONITORED ACCORDINGLY. CALL LIGHT WITHIN REACH. BED IN LOWEST POSITION. SR UP X 2 FOR SAFETY. WILL ENDORSE TO NEXT SHIFT.
--- NOTE | 2021-01-02 07:21 | NUR ---
STAPLE FIBER WASHER OPENING NOTES RECEIVED PT IN BED, AWAKE IN BED. A/O X4. PT IS ON O2 AT 2 LPM VIA N.C, NO SOB OR RESPIRATORY DISTRESS NOTED. BREATHING EVEN AND UNLABORED. NO C/O PAIN OR DISCOMFORT AT THIS TIME, IV ACCESS NOTED IN LEFT HAND G#20, INTACT AND PATENT AND FLUSHING WELL. PATIENT WITH EXTERNAL HOSPITAL INTERNSHIP WITH CURRENT READING OF A FLUTTER, CURRENT HR 90/'S, NO CARDIAC DISTRESS NOTED. FALL AND SAFETY MEASURES IN PLACE AND MAINTAINED AT ALL TIMES. BED ALARM ON, BED IN LOW AND LOCKED POSITION, CALL LIGHT AND TABLE WITHIN EASY REACH, SIDE RAILS UP X2. WILL CONTINUE TO MONITOR PT. ACCDGLY.
[2021-01-02 08:00] VITALS: BP 110/77
[2021-01-02] MEDS: LEVOTHYROXINE SODIUM 75 MCG TABLET PO SCH (08:21)
[2021-01-02] MEDS: PANTOPRAZOLE 40 MG TABLET.DR PO SCH (08:21)
[2021-01-02] MEDS: GABAPENTIN 100 MG CAPSULE PO SCH ×2 (08:21→16:11)
[2021-01-02] MEDS: APIXABAN 5 MG TABLET PO SCH ×2 (08:22→16:11)
[2021-01-02] MEDS: MUPIROCIN OINT 2% 22 GM TUBE NS SCH ×2 (08:24→21:46)
[2021-01-02] MEDS ORDERED: BISACODYL SUPP (10 MG) 10 MG/SUPP.RECT SUPP.RECT RC ONE (09:00)
[2021-01-02] MEDS ORDERED: PSYLLIUM SEED 1 PKT PACKET PO PRN (09:00)
[2021-01-02] MEDS: DOCUSATE SODIUM LIQ 100 MG/10 ML UDC NG SCH (09:19)
[2021-01-02] MEDS: DIGOXIN 0.25 MG TABLET PO SCH (12:03)
[2021-01-02 15:57] VITALS: BP 132/76
[2021-01-02] MEDS: ATORVASTATIN 10 MG TABLET PO SCH (17:11)
--- NOTE | 2021-01-02 18:41 | NUR ---
MS RN CLOSING NOTES PT IN BED AWAKE AND WATCHING TV AT THIS TIME. HOB ELEVATED. A/O X4. ON R.A AT THIS TIME, IVON. WELL. NO SOB OR RESPIRATORY DISTRESS NOTED. BREATHING EVEN AND UNLABORED. IV ACCESS ON LEFT HAND G#20, INTACT AND PATENT AND FLUSHING WELL. ALL NEEDS AND CARE ATTENDED. FALL AND SAFETY MEASURES IN PLACE AND MAINTAINED AT ALL TIMES. BED ALARM ON, BED IN LOW AND LOCKED POSITION, CALL LIGHT AND TABLE WITHIN EASY REACH, SIDE RAILS UP X2. WILL ENDORSED TO SPOOL FIXER NURSE FOR CONTINUITY OF CARE.
[2021-01-02] MEDS: ACETAMINOPHEN 325 MG TABLET PO PRN (18:56)
[2021-01-02 22:37] VITALS: BP 102/63
--- NOTE | 2021-01-03 06:22 | NUR ---
MS RN NOTES AWAKE & RESPONSIVE. NOT IN ANY DISTRESS. NO SOB NOTED. DENIES ANY PAIN OR DISCOMFORT AT THIS TIME. WITH IV-HL PATENT & INTACT. MONITORED ACCORDINGLY. CALL LIGHT WITHIN REACH. BED IN LOWEST POSITION. SR UP X 3 WITH BED ALARM ON FOR SAFETY. WILL ENDORSE TO NEXT SHIFT.
--- NOTE | 2021-01-03 07:39 | NUR ---
RN OPENING NOTE PT AWAKE IN BED RESTING. ON RA WITH NO SOB OR RESPIRATORY DISTRESS PRESENT. A/O X4 AND FINNISH SPEAKING. NO COMPLAINT OF PAIN OR NAUSEA. NO COVER INSPECTOR PRESENT. NO EDEMA PRESENT. ON BEDREST WITH DIAPER PRESENT. SKIN ISSUES PRESENT, PICTURES IN CHART. IV PRESENT ON L HAND 20G AND FLUSHES WELL. SALINE LOCKED. LABS AND ORDERS REVIEWED. SAFETY MEASURES IN PLACE. SIDE RAILS RAISED. BED LOWERED. CALL LIGHT WITHIN REACH. WILL CONTINUE TO MONITOR.
[2021-01-03] MEDS: MUPIROCIN OINT 2% 22 GM TUBE NS SCH ×2 (08:13→21:17)
[2021-01-03] MEDS: DOCUSATE SODIUM LIQ 100 MG/10 ML UDC NG SCH (08:13)
[2021-01-03] MEDS: PANTOPRAZOLE 40 MG TABLET.DR PO SCH (08:13)
[2021-01-03] MEDS: LEVOTHYROXINE SODIUM 75 MCG TABLET PO SCH (08:13)
[2021-01-03] MEDS: GABAPENTIN 100 MG CAPSULE PO SCH ×2 (08:15→17:24)
[2021-01-03] MEDS: APIXABAN 5 MG TABLET PO SCH ×2 (08:15→17:24)
[2021-01-03] MEDS: DIGOXIN 0.25 MG TABLET PO SCH (12:28)
[2021-01-03] MEDS: ATORVASTATIN 10 MG TABLET PO SCH (17:24)
[2021-01-03] MEDS: ENSURE ENLIVE 237 ML LIQUID (VANILLA) PO SCH (17:27)
--- NOTE | 2021-01-03 18:39 | NUR ---
RN CLOSING NOTE PT AWAKE IN BED RESTING. ON RA WITH NO SOB OR RESPIRATORY DISTRESS PRESENT. A/O X4 AND GREEK SPEAKING. NO COMPLAINT OF PAIN OR NAUSEA. NO VP ANALYTICS PRESENT. NO EDEMA PRESENT. ON BEDREST WITH DIAPER PRESENT. SKIN ISSUES PRESENT, PICTURES IN CHART. IV PRESENT ON L HAND 20G AND FLUSHES WELL. SALINE LOCKED. LABS AND ORDERS REVIEWED. SAFETY MEASURES IN PLACE. SIDE RAILS RAISED. BED LOWERED. CALL LIGHT WITHIN REACH. WILL GIVE REPORT TO NIGHT NURSE FOR PATSY.
--- NOTE | 2021-01-03 19:30 | NUR ---
MS/RN OPENING NOTE RECEIVED PATIENT RESTING IN BED WATCHING TV. ALERT AND ORIENTED X 4. ABLE TO MAKE NEEDS KNOWN. DENIES PAIN AT THIS TIME. CONTINUES ON ROOM AIR WITH NO S/SX OF RESPIRATORY DISTRESS NOTED. IV ACCESS TO LEFT HAND #20G INTACT, PATENT AND SALINE LOCKED. CALL LIGHT WITHIN REACH. ASPIRATION, FALL AND SAFETY PRECAUTIONS MAINTAINED. WILL CONTINUE TO MONITOR.
[2021-01-03 20:00] VITALS: BP 107/82
[2021-01-03] MEDS: ZOLPIDEM TARTRATE 5 MG TABLET PO PRN (21:33)
[2021-01-04 06:22] LABS: BASOPHILS % (AUTO) 0.2 % (0.0-2.0); EOSINOPHILS % (AUTO) 2.5 % (0.0-6.0); HEMATOCRIT 39 % (33-45); HEMOGLOBIN 12.6 g/dL (11.5-14.8); LYMPHOCYTES # (AUTO) 1.2 K/uL (0.8-4.8); LYMPHOCYTES % (AUTO) 18.4 % (20.0-44.0); MEAN CORPUSCULAR HGB CONC 33 g/dl (31.0-36.0); MEAN CORPUSCULAR VOLUME 87 fL (82-100); MONOCYTES # (AUTO) 0.5 K/uL (0.1-1.30); NEUTROPHILS # (AUTO) 4.7 K/uL (1.8-8.9); NEUTROPHILS % (AUTO) 70.9 % (43.0-81.0); PLATELET COUNT (AUTO) 172 K/uL (150-450); RED BLOOD CELL COUNT(AUTO) 4.48 MIL/uL (4.0-5.2); WHITE BLOOD COUNT (AUTO) 6.6 K/uL (4.3-11.0)
--- NOTE | 2021-01-04 06:30 | NUR ---
MS/RN CLOSING NOTE PATIENT CURRENTLY RESTING IN BED. AWAKE, ALERT AND ORIENTED X 4. ABLE TO MAKE NEEDS KNOWN. DENIES PAIN AT THIS TIME. CONTINUES ON 2L O2 VIA NC WITH NO S/SX OF RESPIRATORY DISTRESS NOTED. IV ACCESS TO LEFT HAND #20G INTACT, PATENT AND SALINE LOCKED. CALL LIGHT WITHIN REACH. ASPIRATION, FALL AND SAFETY PRECAUTIONS MAINTAINED. WILL ENDORSE PLAN OF CARE TO ONCOMING SHIFT.
[2021-01-04 07:05] LABS: CALCIUM, SERUM 9.1 mg/dL (8.5-10.1); CREATININE 1.1 mg/dL (0.6-1.3); MAGNESIUM 2.1 mg/dL (1.8-2.4); PHOSPHORUS 3.8 mg/dL (2.5-4.9); POTASSIUM 4.7 mmol/L (3.5-5.1)
[2021-01-04] MEDS: PANTOPRAZOLE 40 MG TABLET.DR PO SCH (07:30)
--- NOTE | 2021-01-04 07:32 | NUR ---
RN OPENING NOTE PT AWAKE IN BED RESTING. ON RA WITH NO SOB OR RESPIRATORY DISTRESS PRESENT. A/O X4 AND GUAMANIAN SPEAKING. NO COMPLAINT OF PAIN OR NAUSEA. NO PRINT AND PATTERN DESIGNER PRESENT. NO EDEMA PRESENT. ON BEDREST WITH DIAPER PRESENT. SKIN ISSUES PRESENT, PICTURES IN CHART. IV PRESENT ON L HAND 20G AND FLUSHES WELL. SALINE LOCKED. LABS AND ORDERS REVIEWED. SAFETY MEASURES IN PLACE. SIDE RAILS RAISED. BED LOWERED. CALL LIGHT WITHIN REACH. WILL CONTINUE TO MONITOR.
[2021-01-04 08:00] VITALS: BP 106/70
[2021-01-04] MEDS: DOCUSATE SODIUM LIQ 100 MG/10 ML UDC NG SCH (08:34)
[2021-01-04] MEDS: ENSURE ENLIVE 237 ML LIQUID (VANILLA) PO SCH ×4 (08:35→18:00)
[2021-01-04] MEDS: MUPIROCIN OINT 2% 22 GM TUBE NS SCH ×2 (08:35→21:09)
[2021-01-04] MEDS: LEVOTHYROXINE SODIUM 75 MCG TABLET PO SCH (08:56)
[2021-01-04] MEDS: GABAPENTIN 100 MG CAPSULE PO SCH ×2 (08:57→17:08)
[2021-01-04] MEDS: APIXABAN 5 MG TABLET PO SCH ×2 (08:59→17:00)
[2021-01-04] MEDS: DIGOXIN 0.25 MG TABLET PO SCH (12:04)
[2021-01-04] MEDS: ALPRAZOLAM 0.25 MG TABLET PO PRN (12:48)
[2021-01-04 16:00] VITALS: BP 126/87
[2021-01-04] MEDS: ONDANSETRON HCL/PF 4 MG/2 ML VIAL IVP PRN (16:57)
[2021-01-04] MEDS: ATORVASTATIN 10 MG TABLET PO SCH (17:10)
--- NOTE | 2021-01-04 18:50 | NUR ---
RN CLOSING NOTE PT AWAKE IN BED RESTING. ON RA WITH NO SOB OR RESPIRATORY DISTRESS PRESENT. A/O X4 AND GERMAN SPEAKING. NO COMPLAINT OF PAIN OR NAUSEA. NO COMPUTER OPERATOR PRESENT. NO EDEMA PRESENT. ON BEDREST WITH DIAPER PRESENT. SKIN ISSUES PRESENT, PICTURES IN CHART. IV PRESENT ON L HAND 20G AND FLUSHES WELL. SALINE LOCKED. LABS AND ORDERS REVIEWED. SAFETY MEASURES IN PLACE. SIDE RAILS RAISED. BED LOWERED. CALL LIGHT WITHIN REACH. WILL GIVE REPORT TO NIGHT NURSE FOR PATSY.
--- NOTE | 2021-01-04 19:08 | NUR ---
RN NOTES: -ASLEEP IN BED, SHE WAS AWAKEN DURING ENDORSEMENT TIME, A/OX3-4, ON O2 AT 2L/MIN VIA NC, IV CANNULA ON LH G#20 INTACT. MRSA(+), ON BACTROBAN FOR NASAL AREA, PER RN NOTED WITH SOB ON EXERTION AND AMBULATION, ABLE TO MAKE NEEDS KNOWN, FALL,SAFETY AND ASPIRATION PRECAUTION OBSERVED, NO SOB NO SIGN OF DISCOMFORT. --PER RN ENDORSEMENT: --PATIENT IS FOR POSSIBLE MIITRAL VALVE REPLACEMENT ON WEDNESDAY(NOT YET CONFIRMED), IS TRYING TO LOOK FOR PLACEMENT IN [facility], PENDING WITH INSURANCE ISSUE, SON WANTS TO TAKE HER OUT [facility] ON WEDNESDAY FOR SURGERY, NEEDS TO HOLD ANTI COAGULANT FOR 48 HOURS PRIOR TO PROCEDURE. OUTGOING RN WAS ASKED WHO GAVE THE ORDER? HE SAID, ITS NOT THE PRIMARY DOCTOR, SON WILL CALL BACK AND LET US KNOW AND WILL NOTIFY IN THE MORNING.
[2021-01-04 20:00] VITALS: BP 117/73
--- NOTE | 2021-01-04 21:02 | NUR ---
RN NOTES: RECEIVED A CALL FROM HIS SON-KATY, HE NOTIFIED RN REGARDING THE SURGEON FROM [facility] WHO GAVE ORDER TO HOLD BLOOD THINNER PRIOR TO HIS PROCEDURE ON WEDNESDAY, SURGEON IS DR. FERNANDEZ. WILL INCLUDE IN THE ENDORSEMENT TO NEXT SHIFT. Addendum: 01/04/21 at 2106 by BASHIR CANALES RN ADDED NOTES: FOR POSSIBLE MITRAL VALVE REPLACEMENT PROCEDURE ON WEDNESDAY PER MORNING ENDORSEMENT,NEED TO HOLD ANTICOAGULAND FOR 48 HOURS PRIOR TO PROCEDURE.
[2021-01-04] MEDS: ZOLPIDEM TARTRATE 5 MG TABLET PO PRN (21:24)
--- NOTE | 2021-01-04 21:25 | NUR ---
RN NOTES: WHILE DOING ROUNDS , CHECKING THE PATIENT, SHE WAS AWAKE AND ASKED FOR HER SLEEPING PILL, SHE SAID "I WANT MG SLEEPING MEDICATION", GIVEN PER PATIENT REQUEST. -FALL AND SAFETY PRECAUTION OBSERVED. -KEPT CALL LIGHT WITHIN EASY REACH. Addendum: 01/04/21 at 2132 by BASHIR CANALES RN ADDED NOTES: UNABLE TO SCAN THE MEDICATION PRN FOR SLEEP, MANUAL BARCODE ENTERED, WITNESSED BY ANOTHER RN/SUZY.
--- NOTE | 2021-01-04 22:48 | NUR ---
RN NOTES: -ON CLOSE WATCH, PATIENT IS ASLEEP, KEPT CALL LIGHT WITHIN EASY REACH, BED LOW AND LOCKED, SIDE RAILS UPX3.SAFETY PRECAUTION OBSERVED.
--- NOTE | 2021-01-04 23:06 | NUR ---
RN NOTES: ASSISTED AGAIN TO THE BATHROOM, ABLE TO AMBULATE WITH STANDBY ASSIST, NO SOB NOTED, ACTIVITY TOLERATED, ON CLOSE WATCH.KEPT CALL LIGHT WITHIN EASY REACH. Addendum: 01/04/21 at 2308 by BASHIR CANALES RN ADDED NOTES: WRONG ENTRY OF CHARTING ITS FOR 312-1. -313-2 IS IN DEEP SLEEP.
--- NOTE | 2021-01-05 04:08 | NUR ---
RN NOTES: RECEIVED A CALL FROM [facility] SPOKE WITH GLYNN, SHE WAS INQUIRING REGARDING PATIENT UPCOMING PROCEDURE(TAVR), BUT NO DEFINITE APPROVAL YET,IT DEPENDS OF THE RELEASE OF INSURANCE AUTHORIZATION AND LETTER AGREEMENT FOR THE PROCEDURE.IN CASE PATIENT WILL BE SCHEDULED ON WEDNESDAY, THEY WILL DO ALL PRE-OP PREPARATION THERE AND MIGHT SEND BACK PATIENT BACK TO [facility] POST-OP.CHARGE NURSE/TIM NOTIFIED.
--- NOTE | 2021-01-05 06:42 | NUR ---
RN NOTES: AWAKE, BRIEF CHANGE, NO LABS IN THE MORNING, CONTINUE ON O2 AT 2L/MIN VIA NC, NOTED WITH SLIGHT SOB DURING REPOSITIONING AND CHANGING OF GARMENTS AND LINEN,AT REST SHE LOOKS VERY COMFORTABLE, WEIGHT-155.7, GO BACK TO SLEEP IN BETWEEN, ENDORSED FOR CONTINUITY OF CARE.
[2021-01-05] MEDS: PANTOPRAZOLE 40 MG TABLET.DR PO SCH (07:30)
[2021-01-05 08:00] VITALS: BP 123/66
--- NOTE | 2021-01-05 08:08 | NUR ---
PATTI CEJA NOTES PATIENT AWAKE IN BED RESTING. ON O2 2L NC WITH NO SOB OR RESPIRATORY DISTRESS PRESENT. A/O X4 AND UKRAINIAN SPEAKING. COMPLAINT OF PAIN 6/10, BILATERAL KNEE, PAIN MEDICATION OFFERED. NO PUNCHBOARD ASSEMBLER PRESENT. NO EDEMA PRESENT. ON BEDREST WITH DIAPER PRESENT. SKIN ISSUES PRESENT, PICTURES IN CHART. IV PRESENT ON L HAND 20G AND FLUSHES WELL. SALINE LOCKED. SAFETY MEASURES IN PLACE. SIDE RAILS RAISED. BED LOWERED. CALL LIGHT WITHIN REACH. WILL CONTINUE TO MONITOR.
[2021-01-05] MEDS: ALPRAZOLAM 0.25 MG TABLET PO PRN ×2 (08:29→20:10)
[2021-01-05] MEDS: GABAPENTIN 100 MG CAPSULE PO SCH ×2 (08:29→17:28)
[2021-01-05] MEDS: LEVOTHYROXINE SODIUM 75 MCG TABLET PO SCH (08:30)
[2021-01-05] MEDS: ENSURE ENLIVE 237 ML LIQUID (VANILLA) PO SCH ×3 (08:31→17:57)
[2021-01-05] MEDS: MUPIROCIN OINT 2% 22 GM TUBE NS SCH (08:31)
[2021-01-05] MEDS: DOCUSATE SODIUM LIQ 100 MG/10 ML UDC NG SCH (08:38)
[2021-01-05] MEDS: APIXABAN 5 MG TABLET PO SCH (08:38)
--- NOTE | 2021-01-05 10:00 | NUR ---
RN NOTE CONTACTED DR FISHER ABOUT HOLDING ELIQUIS FOR POSSIBLE HEART SX. OKAYED BY TO HOLD.
[2021-01-05] MEDS ORDERED: ENSURE ENLIVE 237 ML LIQUID (VANILLA) PO SCH ×2 (12:00→12:30)
[2021-01-05] MEDS: DIGOXIN 0.25 MG TABLET PO SCH (12:37)
[2021-01-05] MEDS: IPRATROPIUM NEB FS 0.5 MG/2.5 ML AMPUL.NEB NEB SCH ×3 (15:30→23:41)
[2021-01-05 16:00] VITALS: BP 133/59
--- NOTE | 2021-01-05 16:38 | NUR ---
RN NOTE PATIENT. WANTED TO TALK TO DOCTOR ABOUT HER ANXIETY, MD NOTIFIED NO RESPONSE
[2021-01-05] MEDS: ATORVASTATIN 10 MG TABLET PO SCH (17:28)
--- NOTE | 2021-01-05 18:00 | NUR ---
RN CLOSING NOTES PATIENT AWAKE IN BED RESTING. ON O2 2L NC WITH NO SOB OR RESPIRATORY DISTRESS PRESENT. A/O X4 AND IRISH SPEAKING. NO DRIVE IN TELLER PRESENT. NO EDEMA PRESENT. ON BEDREST WITH DIAPER PRESENT. SKIN ISSUES PRESENT, PICTURES IN CHART. IV PRESENT ON L HAND 20G AND FLUSHES WELL. PATIENT IS ANXIOUS, ANXIETY PRESENT. SALINE LOCKED. SAFETY MEASURES IN PLACE. SIDE RAILS RAISED. BED LOWERED. CALL LIGHT WITHIN REACH. WILL CONTINUE TO MONITOR AND ENDORSE TO NEXT SHIFT.
--- NOTE | 2021-01-05 19:40 | NUR ---
Patient is awake, A&Ox4. Says she feels anxious and a little SOB. Notified RT who is already on the way for routine breathing treatment. Will give PRN Xanax as per MD order.
[2021-01-05 20:00] VITALS: BP 113/58
[2021-01-05] MEDS: ACETAMINOPHEN 325 MG TABLET PO PRN (20:10)
--- NOTE | 2021-01-05 20:15 | NUR ---
Patient reports relief from breathing treatment and thankful for PRN xanax. Patient also comforted when nurse clearly explains plan of care.
[2021-01-05] MEDS: ZOLPIDEM TARTRATE 5 MG TABLET PO PRN (22:27)
--- NOTE | 2021-01-05 22:27 | NUR ---
Patient requests sleeping pill saying she wants a good night of rest tonight and she has not been able to recently. PRN Jarvis given.
--- NOTE | 2021-01-06 00:53 | NUR ---
Received call from [facility] stating that patient is accepted by an MD but is still awaiting financial clearance but they should know by tomorrow whether or not she is financially cleared.
[2021-01-06] MEDS: IPRATROPIUM NEB FS 0.5 MG/2.5 ML AMPUL.NEB NEB SCH ×6 (03:40→22:30)
--- NOTE | 2021-01-06 06:23 | NUR ---
Patient noted to have 7 pound weight gain from day prior. DR notified with new order for CXR this AM.
--- NOTE | 2021-01-06 06:50 | NUR ---
Patient is A&Ox3-4, sometimes forgetful. Patient reports that overnight she has slept great and no longer feels the shortness of breath that she did last night. No signs of distress. Sleeps with HOB at 45 degrees. Adequate urine output x2. Patient denies anxiety at this time.
[2021-01-06 06:51] LABS: BASOPHILS % (AUTO) 0.4 % (0.0-2.0); EOSINOPHILS % (AUTO) 2.5 % (0.0-6.0); HEMATOCRIT 41 % (33-45); HEMOGLOBIN 13.4 g/dL (11.5-14.8); LYMPHOCYTES # (AUTO) 1.1 K/uL (0.8-4.8); LYMPHOCYTES % (AUTO) 20.2 % (20.0-44.0); MEAN CORPUSCULAR HGB CONC 33 g/dl (31.0-36.0); MEAN CORPUSCULAR VOLUME 87 fL (82-100); MONOCYTES # (AUTO) 0.4 K/uL (0.1-1.30); MONOCYTES % (AUTO) 6.9 % (2.0-12.0); PLATELET COUNT (AUTO) 150 K/uL (150-450); RED BLOOD CELL COUNT(AUTO) 4.71 MIL/uL (4.0-5.2); WHITE BLOOD COUNT (AUTO) 5.7 K/uL (4.3-11.0)
[2021-01-06] MEDS: LEVOTHYROXINE SODIUM 75 MCG TABLET PO SCH (07:06)
[2021-01-06] MEDS: PANTOPRAZOLE 40 MG TABLET.DR PO SCH (07:06)
--- NOTE | 2021-01-06 07:22 | NUR ---
WOUND CARE CONSULT: PT PRESENTS WITH INTACT SKIN AND SOME AREAS OF DISCOLORATION TO UPPER EXTREMITIES. RECOMMENDATIONS MADE FOR SKIN PROTECTION. DISCUSSED WITH NURSING STAFF. PT IS INCONTINENT. MD IN AGREEMENT WITH PLAN OF CARE.
--- NOTE | 2021-01-06 07:51 | NUR ---
MS RN OPENING NOTES RECEIVED PATIENT IN BED, AWAKE, A/O X3. PATIENT ON OXYGEN THERAPY AT 2 LPM; BREATHING EVEN AND UNLABORED AT THIS TIME; NO SOB PRESENT. NO COMPLAINS OF PAIN. L HAND IV ACCESS IN PLACE; SL. SAFETY PRECAUTIONS IN PLACE; BED IN LOW POSITION AND LOCKED, RAILS UP X2, CALL LIGHT WITHIN REACH. WILL CONTINUE TO MONITOR PATIENT.
[2021-01-06 08:05] VITALS: BP 114/73
[2021-01-06] MEDS: ALBUTEROL FS 2.5 MG/3 ML VIAL.NEB NEB PRN ×2 (08:14→22:30)
[2021-01-06] MEDS: GABAPENTIN 100 MG CAPSULE PO SCH ×2 (08:15→16:18)
[2021-01-06] MEDS: DOCUSATE SODIUM LIQ 100 MG/10 ML UDC NG SCH (08:16)
[2021-01-06] MEDS: ENSURE ENLIVE 237 ML LIQUID (VANILLA) PO SCH ×3 (08:17→16:18)
[2021-01-06 08:29] LABS: CALCIUM, SERUM 8.9 mg/dL (8.5-10.1); CREATININE 1.1 mg/dL (0.6-1.3); MAGNESIUM 2.5 mg/dL (1.8-2.4); PHOSPHORUS 4.4 mg/dL (2.5-4.9)
[2021-01-06] MEDS: DIGOXIN 0.25 MG TABLET PO SCH (12:12)
[2021-01-06 16:36] VITALS: BP 116/63
[2021-01-06] MEDS: ATORVASTATIN 10 MG TABLET PO SCH (17:04)
--- NOTE | 2021-01-06 18:44 | NUR ---
MS RN CLOSING NOTES PATIENT REMAINS IN BED, AWAKE, A/O X3. PATIENT ON OXYGEN THERAPY AT 2 LPM; BREATHING EVEN AND UNLABORED AT THIS TIME; NO SOB PRESENT. MILD GENERALIZED PAIN; NO MEDICATION REQUESTED. L HAND IV ACCESS IN PLACE; SL. ALL NEEDS ATTENDED DURING THE DAY. SAFETY PRECAUTIONS IN PLACE; BED IN LOW POSITION AND LOCKED, RAILS UP X2, CALL LIGHT WITHIN REACH. 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
--- NOTE | 2021-01-06 19:50 | NUR ---
MS RN OPENING NOTES RECEIVED PT IN BED, AWAKE, A/O X3, FARSI AND THAI SPEAKING. ON 2L/MIN VIA NASAL CANNULA AND TOLERATING WELL. NO SOB NOTED. NO S/SX OF RESPIRATORY DISTRESS NOTED. IV ACCESS IN L HAND #20G. IV IS INTACT, PATENT AND FLUSHING WELL. SAFETY PRECAUTIONS IN PLACE; BED IN LOWEST, LOCKED POSITION, SIDERAILS UP X2, AND BRAKES ON. CALL LIGHT WITHIN REACH. WILL CONTINUE TO MONITOR.
[2021-01-06 20:00] VITALS: BP 109/65
[2021-01-06] MEDS: ACETAMINOPHEN 325 MG TABLET PO PRN (20:26)
--- NOTE | 2021-01-06 23:41 | NUR ---
AMA NOTE PT'S DAUGHTER AND SON STATE THEY WANT THEIR MOTHER TO LEAVE AGAINST MEDICAL ADVICE (AMA). PATIENT AND FAMILY ENCOURAGED TO STAY FOR FURTHER TREATMENT/STABILIZATION. DR. NUÑEZ AWARE OF FAMILY'S WISHES. PATIENT ADVISED OF RISK AND BENEFITS OF LEABING AMA. PATIENT AND FAMILY VERBALIZED UNDERSTANDING. PATIENT ENCOURAGED TO RETURN TO ER IF SYMPTOMS DO NOT IMPROVED OR WORSEN. DAUGHTER AND SON AT BEDSIDE TO TRANSLATE. TAKEN DOWN VIA WHEELCHAIR @2330. Addendum: 01/06/21 at 2344 by MADDIE LADD RN REMOVED IV AND WRISTBAND. PAPERWORK GIVEN.
== END 2021-01-06 23:30 | disposition left against medical advice (07) | DRG 291 ==
LOC: ER 14:48 → MED 18:03 → MERGE 18:03 → TELE 18:59 → MED 01-02 09:22
PROVIDERS: ADMIT Nurse Practitioner Acute Care; ATTEND Student in an Organized Health Care Education/Training Program
DX: I13.0 Hypertensive heart and chronic kidney disease with heart failure and stage 1 through stage 4 chronic kidney disease, or unspecified chronic kidney disease (principal); N17.0 Acute kidney failure with tubular necrosis; I50.31 Acute diastolic (congestive) heart failure; I48.92 Unspecified atrial flutter; D68.69 Other thrombophilia; N18.9 Chronic kidney disease, unspecified; I25.10 Atherosclerotic heart disease of native coronary artery without angina pectoris; D50.9 Iron deficiency anemia, unspecified; E03.9 Hypothyroidism, unspecified; E78.5 Hyperlipidemia, unspecified; E87.5 Hyperkalemia; I48.91 Unspecified atrial fibrillation; K21.9 Gastro-esophageal reflux disease without esophagitis; K59.00 Constipation, unspecified; M19.90 Unspecified osteoarthritis, unspecified site; Z86.73 Personal history of transient ischemic attack (TIA), and cerebral infarction without residual deficits; Z96.659 Presence of unspecified artificial knee joint; Z99.3 Dependence on wheelchair; Z91.19 Patient's noncompliance with other medical treatment and regimen; Z20.822 Contact with and (suspected) exposure to COVID-19; I05.0 Rheumatic mitral stenosis; R53.1 Weakness; Z22.322 Carrier or suspected carrier of Methicillin resistant Staphylococcus aureus
CPT/HCPCS: 36415; 71045-TC; 80048-TC; 80053-TC; 80061-TC; 80076-TC; 83540-TC; 83735-TC; 83880; 84100-TC; 84484-TC; 85025-TC; 85652-TC; 85730-TC; 87081-TC; 93307-TC; 94799-TC; 97112-TC; 97116-TC; 97530-TC; C9803; G0378; J1160; J2405; J3490; J7030; J7050